=== PATIENT | female | born 1955 | race Caucasian/White ===

== ENCOUNTER 2021-11-30 12:41 | Inpatient (IN) | payer OTHER, SELFPAY ==
[2021-11-30] VITALS (8 sets, daily range): BP systolic 122–142; BP diastolic 48–59; PULSE 89–115; RESP 13–18; TEMP 38.3; O2SAT 94–99; BMI 19.8
--- NOTE | ~2021-11-30 | XR_ITS ---
EXAMINATION: XR CHEST CLINICAL INFORMATION: SOB COMPARISON: None TECHNIQUE: 2 views of the chest were obtained. FINDINGS: The lungs are expanded with right upper lobe patchy consolidation consistent infiltrate. Rest lungs are clear. The heart size and pulmonary vascularity is normal. No gross bony abnormality. XR/XR chest 2V IMPRESSION: Right upper lobe pneumonia.
--- NOTE | ~2021-11-30 | US_ITS ---
EXAMINATION: US ABDOMEN COMPLETE CLINICAL INFORMATION: Elevated LFTs. COMPARISON: None TECHNIQUE: Real-time imaging of the abdominal viscera. FINDINGS: PANCREAS: Pancreatic tail is obscured by bowel gas. Remainder of the pancreas is grossly unremarkable. ABDOMINAL AORTA: Normal caliber. Atherosclerotic irregularity of the distal abdominal aorta. INFERIOR VENA CAVA: Visualized portions are normal. LIVER: Normal homogeneous hepatic echotexture. No hypertrophy of the caudate lobe. Smooth liver surface capsular contour. Small 0.7 cm anechoic cyst in the right liver lobe. No other liver lesions. Minimal prominence of a few intrahepatic bile ducts. GALLBLADDER: Gallbladder appears incompletely distended/partially contracted with thickened wall. No sludge or shadowing gallstones. No pericholecystic fluid. The patient did not have a sonographic Wilde sign. COMMON BILE DUCT: Normal in caliber measuring 0.6 cm in diameter. RIGHT KIDNEY: Normal. No hydronephrosis. No renal calculi or focal parenchymal lesions. The kidney measures 10.2 cm in maximum dimension. LEFT KIDNEY: Normal. No hydronephrosis. No renal calculi or focal parenchymal lesions. The kidney measures 10.6 cm in maximum dimension. SPLEEN: Normal. The spleen measures 11.1 cm in maximum dimension. FREE FLUID: None. US/US abdomen complete IMPRESSION: 1. Normal hepatic echotexture. No evidence of steatosis or morphologic features of advanced cirrhosis. 2. No suspicious liver lesions. 3. No significant biliary ductal dilation. 4. Unremarkable appearance of the pancreas, spleen, and both kidneys. 5. Contracted/incompletely distended thick-walled gallbladder. No evidence of cholelithiasis or specific sonographic findings of acute cholecystitis.
--- NOTE | 2021-11-30 13:46 | PC.NURSE ---
PATIENT'S [id number] RINA [phone] ([facility])
[2021-11-30 14:29] LABS: MANUAL DIFF FLAG NO
[2021-11-30 14:30] LABS: Basophils Absolute Auto 0.1 X10*3/uL (0.0-0.2); Basophils Percent Auto 0.5 % (0-2); Eosinophils Percent Auto 0.1 % (0-4); Hematocrit 38.1 % (37.0-47.0); Hemoglobin 13.7 g/dl (12.0-16.0); Imm Gran Abs Auto 0.21 X10*3/uL (0.00-0.03); Imm Gran Pct Auto 1.6 % (0.0-0.4); Lymphocytes Absolute Auto 0.8 X10*3/uL (1.2-4.9); Lymphocytes Percent Auto 6.2 % (20-40); Mean Corpuscular Hemoglobin 34.1 pg (27.0-33.0); Mean Corpuscular Volume 94.8 fL (80.0-98.0); Mean Platelet Volume 9.5 fL (9.4-12.3); Monocytes Absolute Auto 1.3 X10*3/uL (0.1-1.2); Monocytes Percent Auto 9.8 % (2-11); Neutrophils Absolute Auto 10.7 x10*3/uL (2.0-8.3); Neutrophils Percent Auto 81.8 % (45-73); Platelet Count 168 X10*3/uL (160-400); Red Blood Count 4.02 X10*6/uL (4.20-5.50); Red Cell Distribution Width 11.2 % (11.0-16.0)
[2021-11-30 15:00] LABS: Alanine Aminotransferase 39 U/L (0-31); Albumin Level 3.7 g/dL (3.5-5.0); Alkaline Phosphatase 121 U/L (39-117); Anion Gap 19 (12-20); Aspartate Amino Transferase 62 U/L (5-31); Bilirubin Total 2.1 mg/dL (0.0-1.0); Blood Urea Nitrogen 10 mg/dL (9-16); Calcium 9.2 mg/dL (8.4-10.2); Carbon Dioxide 27 mmol/L (22-29); Chloride 90 mmol/L (96-108); Creatinine Clr Calc Pharmacy 68.2; Estimated Glomerular Filt Rate > 60; Glucose Random 123 mg/dL (60-115); Potassium 3.3 mmol/L (3.3-5.1); Sodium 133 mmol/L (135-145); Total Protein 6.5 g/dL (6.5-8.0)
[2021-11-30 15:12] LABS: Influenza A PCR NEGATIVE (Negative); Influenza B PCR NEGATIVE (Negative); Resp Syncy Virus RNA Qual PCR NEGATIVE (Negative); SARS COV2 PCR INHOUSE NEGATIVE (Negative)
--- NOTE | 2021-11-30 17:20 | PC.NURSE ---
update to Dona onphone.
--- NOTE | 2021-11-30 17:58 | ECG_ITS ---
Test Reason : sob Blood Pressure : / mmHG Vent. Rate : 115 BPM Atrial Rate : 115 BPM P-R Int : 156 ms QRS Dur : 088 ms QT Int : 330 ms P-R-T Axes : 080 065 066 degrees QTc Int : 456 ms Sinus tachycardia Otherwise normal ECG No previous ECGs available Referred By: Jane Simms Electronically Signed By:ROSELINE ROBERTS
--- NOTE | 2021-11-30 18:02 | ED_ITS ---
HPI - General Adult General Chief complaint: General Medical Stated complaint: sob headache trembling sleeping Time Seen by Provider: 11/30/21 17:41 Source: patient Mode of arrival: ambulatory Limitations: no limitations History of Present Illness HPI narrative: 65-year-old female with a history of tobacco use presents with several days of body aches, headache, shortness of breath a nonproductive cough with tactile temps at home. Patient also had some nausea vomiting and diarrhea in the last week. +chest discomfort with coughing. no leg swelling or leg pain. Related Data Home Medications Medication Instructions Recorded Confirmed albuterol sulfate 90 mcg/actuation 2 puff inhalation Q4H PRN dyspnea 11/30/21 11/30/21 aerosol inhaler fluticasone propionate 50 1 spray intranasal BID allergies 11/30/21 11/30/21 mcg/actuation nasal spray,suspension Allergies Allergy/AdvReac Type Severity Reaction Status Date / Time Penicillins [PCN] Allergy Severe ANAPHYLAXIS Verified 11/30/21 13:37 penicillin V Allergy Unknown anaphylaxis Verified 11/30/21 13:37 Review of Systems Review of Systems: Yes all other systems are reviewed and are negative Constitutional: Constitutional: Reports no additional constitutional complaints, Reports body ache(s), Denies chills, Reports fever(s), Reports headache(s) and Denies weakness Eyes: Eyes: Reports no additional eye complaints and Denies change in vision ENT: Reports system reviewed and no additional complaints, except as documented, Denies dizziness, Reports headache(s), Denies nasal congestion, Denies nasal discharge and Denies neck pain Cardiovascular: Cardiovascular: Reports no additional cardiovascular complaints, Denies chest pain, Denies leg edema and Reports dyspnea Respiratory: Respiratory: Reports no additional respiratory complaints, Reports cough and Reports dyspnea Gastrointestinal: Gastrointestinal: Reports no additional gastrointestinal complaints, Denies abdominal pain, Reports diarrhea, Reports nausea and Reports vomiting Genitourinary: Genitourinary: Reports no additional female genitourinary complaints and Denies urinary incontinence Musculoskeletal: Musculoskeletal: Reports no additional musculoskeletal complaints, Denies back pain, Denies arthralgias, Denies joint swelling, Denies neck pain, Denies numbness and Denies tingling Integumentary/Breasts: Skin/Breast: Reports system reviewed and no additional complaints, except as docu and Denies rash Neurologic: Reports system reviewed and no additional complaints, except as documented, Denies dizziness, Reports headache(s), Denies numbness, Denies tingling and Denies weakness [facility] Past Medical History Attestation statement: The following information was validated with the patient. Source: old records reviewed and nursing notes reviewed Social History Social History Advance Directives: No Advance Directives Information Provided: No Physical Exam ED Vital Signs: Vital Signs - 24 hr 11/30/21 13:38 Temperature 100.9 F H Pulse Rate 115 H Respiratory Rate 18 Blood Pressure 142/57 H Pulse Oximetry 96 Oxygen Delivery Method Room Air BMI result Body Mass Index 19.8 Const General: alert Orientation/consciousness: patient oriented x3 Limitations: no limitations HENMT Head: Yes normal to inspection Ears: hearing grossly normal bilaterally Eyes General: appearance normal, both eyes and all related structures Pupils: Equal, round and reactive pupils present Neck Neck: Yes normal visual inspection, Yes full ROM, Yes no lymphadenopathy and Yes no meningeal signs Chest Chest palpation & inspection: normal inspection of the chest Resp Other: Mild tachypnea with speaking and exertion right lung is coarse with wheezing Cardio Rate: regular rate Rhythm: regular rhythm Peripheral pulses: Peripheral pulses 2+ throughout GI Inspection: Yes normal to inspection Palpation (GI): Soft to palpation and nontender Back/Spine/Pelvis Thoracic/Lumbar Spine: thoracic and lumbar spine normal to inspection Skin General skin exam: no rashes or lesions noted Neuro General: patient oriented x3, moves all extremities and no meningeal signs Cranial nerves: Yes Equal, round and reactive pupils present Extrem General: Yes normal to inspection, Yes no pedal edema and Yes no calf tenderness Course Course Course Narrative: 1830-eviewed labs which show leukocytosis. Chest x-ray is consistent with a right upper lobe pneumonia. Patient has mildly elevated LFTs. She has no abdominal pain. She does have some history in the last week of some vomiting and diarrhea. Think this likely is secondary to her infection and not from acute abdominal pathology. Patient will require admission due to meeting SIRS criteria with an infection. I did discuss the case with Dr. Fontenot who accepted admission Reevaluation(s) Reevaluation #1: 1845-Patient drinks 3-4 nips daily. ?contributing cause of elevated lfts. Medical Decision Making [facility] Narrative Medical decision making narrative: [id number]-old female with history of tobacco use presents with flu-like symptoms for the last few days. On my exam patient is tachycardic, tachypneic and febrile. chest x-ray consistent with right upper lobe pneumonia. at this time infection is suspected. blood cultures and lactic acid ordered. antibiotics ordered. Medical Records Medical records reviewed: Yes I reviewed the patient's medical records. Lab Data Lab results reviewed: Yes I reviewed the patient's lab results. Result diagrams: 11/30/21 14:24 11/30/21 14:24 Labs: Lab Results 11/30/21 11/30/21 11/30/21 Range/Units 14:08 14:24 14:24 WBC 13.0 H (4.8-10.8) X10*3/uL RBC 4.02 L (4.20-5.50) X10*6/uL Hgb 13.7 (12.0-16.0) g/dl Hct 38.1 (37.0-47.0) % MCV 94.8 (80.0-98.0) fL MCH 34.1 H (27.0-33.0) pg MCHC 36.0 H (31.0-35.0) g/dl RDW 11.2 (11.0-16.0) % Plt Count 168 (160-400) X10*3/uL MPV 9.5 (9.4-12.3) fL Immature Gran % (Auto) 1.6 H (0.0-0.4) % Neut % (Auto) 81.8 H (45-73) % Lymph % (Auto) 6.2 L (20-40) % [place] % (Auto) 9.8 (2-11) % Eos % (Auto) 0.1 (0-4) % Baso % (Auto) 0.5 (0-2) % Lymph # (Auto) 0.8 L (1.2-4.9) X10*3/uL [place] # (Auto) 1.3 H (0.1-1.2) X10*3/uL Eos # (Auto) 0.0 (0.0-0.4) X10*3/uL Baso # (Auto) 0.1 (0.0-0.2) X10*3/uL Abs Immat Gran (auto) 0.21 H (0.00-0.03) X10*3/uL Absolute Neuts (auto) 10.7 H (2.0-8.3) x10*3/uL Absolute Nucleated RBC 0.000 (0.0-0.012) X10*3/uL Nucleated RBC % (auto) 0.0 (0.0-0.2) /100WBC Sodium 133 L (135-145) mmol/L Potassium 3.3 (3.3-5.1) mmol/L Chloride 90 L (96-108) mmol/L Carbon Dioxide 27 (22-29) mmol/L Anion Gap 19 (12-20) BUN 10 (9-16) mg/dL Creatinine 0.61 (0.5-1.4) mg/dL Estim Creat Clear Calc 68.2 Estimated GFR > 60 Random Glucose 123 H (60-115) mg/dL Lactic Acid (0.5-2.0) mmol/L Calcium 9.2 (8.4-10.2) mg/dL Total Bilirubin 2.1 H (0.0-1.0) mg/dL AST 62 H (5-31) U/L ALT 39 H (0-31) U/L Alkaline Phosphatase 121 H (39-117) U/L Total Protein 6.5 (6.5-8.0) g/dL Albumin 3.7 (3.5-5.0) g/dL Influenza Type A (PCR) NEGATIVE (Negative) Influenza Type B (PCR) NEGATIVE (Negative) RSV RNA Qual (PCR) NEGATIVE (Negative) SARS-CoV-2 RNA (RT-PCR) NEGATIVE (Negative) 11/30/21 Range/Units 18:20 WBC (4.8-10.8) X10*3/uL RBC (4.20-5.50) X10*6/uL Hgb (12.0-16.0) g/dl Hct (37.0-47.0) % MCV (80.0-98.0) fL MCH (27.0-33.0) pg MCHC (31.0-35.0) g/dl RDW (11.0-16.0) % Plt Count (160-400) X10*3/uL MPV (9.4-12.3) fL Immature Gran % (Auto) (0.0-0.4) % Neut % (Auto) (45-73) % Lymph % (Auto) (20-40) % [place] % (Auto) (2-11) % Eos % (Auto) (0-4) % Baso % (Auto) (0-2) % Lymph # (Auto) (1.2-4.9) X10*3/uL [place] # (Auto) (0.1-1.2) X10*3/uL Eos # (Auto) (0.0-0.4) X10*3/uL Baso # (Auto) (0.0-0.2) X10*3/uL Abs Immat Gran (auto) (0.00-0.03) X10*3/uL Absolute Neuts (auto) (2.0-8.3) x10*3/uL Absolute Nucleated RBC (0.0-0.012) X10*3/uL Nucleated RBC % (auto) (0.0-0.2) /100WBC Sodium (135-145) mmol/L Potassium (3.3-5.1) mmol/L Chloride (96-108) mmol/L Carbon Dioxide (22-29) mmol/L Anion Gap (12-20) BUN (9-16) mg/dL Creatinine (0.5-1.4) mg/dL Estim Creat Clear Calc Estimated GFR Random Glucose (60-115) mg/dL Lactic Acid 1.4 (0.5-2.0) mmol/L Calcium (8.4-10.2) mg/dL Total Bilirubin (0.0-1.0) mg/dL AST (5-31) U/L ALT (0-31) U/L Alkaline Phosphatase (39-117) U/L Total Protein (6.5-8.0) g/dL Albumin (3.5-5.0) g/dL Influenza Type A (PCR) (Negative) Influenza Type B (PCR) (Negative) RSV RNA Qual (PCR) (Negative) SARS-CoV-2 RNA (RT-PCR) (Negative) Discharge Plan Discharge Clinical Impression: Pneumonia, Leukocytosis, Elevated liver enzymes Patient Disposition: Admitted As Inpatient
[2021-11-30 18:36] LABS: Lactic Acid 1.4 mmol/L (0.5-2.0)
[2021-11-30] MEDS: Albuterol/Iprat 2.5/0.5MG 3 ML AMPUL.NEB INHALE ×2 (18:46→20:36)
--- NOTE | 2021-11-30 18:50 | P.HPHOSP_ITS ---
History of Present Illness Date of Service: 11/30/21 Attending physician on admission: Hortensia Fontenot Chief Complaint: sepsis and pneumonia 65-year-old female with history of smoking and alcohol use comes to emergency room because of 1 week?body aches, headache, shortness of breath a nonproductive cough with tactile temps at home.? Patient also had some nausea vomiting and diarrhea in the last week.? She said her nausea vomiting and diarrhea is improved but she is having coughing and pain with coughing. She seems generalized weak, felt fever at home and also had chills. Also her appetite is decreased. She denies any recent travel or any sick contacts. Past medical history: She says that she had question of possible lupus 10 years ago but does not take any medication for lupus and does not follow any specialist for that. Currently does not say any symptoms or rash. Possible undiagnosed COPD. Social history: Lives with her son, uses half pack of cigarettes every day from last 30-40 years, drinks every day 3-4 nips of fireball. Patient denies any family history of any medical problems . Lab imaging reviewed: Patient had WBC count of 13, tachycardia, elevated LFTs Chest x-ray shows Right upper lobe pneumonia. Review of Systems Review of Systems: As above. Yes all other systems are reviewed and are negative PMFSH Pertinent family history: Denies any family history of any medical problem including heart disease or hypertension or diabetes . Social History Advance Directives: No Advance Directives Information Provided: No Meds Allergies Allergy/AdvReac Type Severity Reaction Status Date / Time Penicillins [PCN] Allergy Severe ANAPHYLAXIS Verified 11/30/21 13:37 penicillin V Allergy Unknown anaphylaxis Verified 11/30/21 13:37 Active Medications: Current Medications Albuterol/Ipratropium (Albuterol/Iprat 2.5/0.5mg 3 Ml Ampul.Neb) 3 ml INHALE RQ4H WHILE AWAKE LAINA Enoxaparin Sodium (Enoxaparin Sodium 40 Mg/0.4 Ml Syringe) 40 mg SUBCUT Q24H LAINA Levofloxacin (Levaquin) 750 mg in 150 mls @ 100 mls/hr IV ONCE ONE Stop: 11/30/21 19:28 Lactated Ringer's (Lr) 1,000 mls @ 100 mls/hr IVCONT .Q10H [facility] Levofloxacin (Levaquin) 750 mg in 150 mls @ 100 mls/hr IV Q24H [facility] Methylprednisolone Sodium Succinate (Methylprednisolone Sod Succ 40 Mg/Ml Vial) 40 mg IVPUSH BID [facility] Pharmacy Consult (Consult Rx Perform Med Rec) 1 each MISCELLANE ONCE PRN PRN Reason: Consult order Sodium Chloride (0.9 % Sodium Chloride Flush 3 Ml Syringe) 3 ml IVFLUSH QSHIFT [facility] Physical Exam Vital Signs and Narrative: Vital Signs: Last Vital Signs Temp 100.9 F H 11/30/21 13:38 Pulse 115 H 11/30/21 13:38 Resp 18 11/30/21 13:38 BP 142/57 H 11/30/21 13:38 Pulse Ox 96 11/30/21 13:38 O2 Del Method 11/30/21 13:38 BMI result Body Mass Index 19.8 Appearance: Alert.? Oriented X3.? Eyes: Pupils equal, round and reactive to light.? Sclera nonicteric.? ENT: Pharynx normal.? Moist mucous membranes. cvs: rrr(tachy), [id number] res: diminshed air entry right upper lobe , has wheezing b/l. abd: no rebound or guarding ,nt, bs present. ext pulses present , no cyanosis ,Gait well balanced well coordinated. neuro: axo3 , nonfocal. Results Labs CBC and Chem 7: 11/30/21 14:24 11/30/21 14:24 Labs: Laboratory Results - last 24 hr 11/30/21 11/30/21 11/30/21 14:08 14:24 14:24 MCV 94.8 MCH 34.1 H MCHC 36.0 H RDW 11.2 Plt Count 168 MPV 9.5 Immature Gran % (Auto) 1.6 H Neut % (Auto) 81.8 H Lymph % (Auto) 6.2 L [place] % (Auto) 9.8 Eos % (Auto) 0.1 Baso % (Auto) 0.5 Lymph # (Auto) 0.8 L [place] # (Auto) 1.3 H Eos # (Auto) 0.0 Baso # (Auto) 0.1 Abs Immat Gran (auto) 0.21 H Absolute Neuts (auto) 10.7 H Absolute Nucleated RBC 0.000 Nucleated RBC % (auto) 0.0 Anion Gap 19 Estim Creat Clear Calc 68.2 Estimated GFR > 60 Random Glucose 123 H Lactic Acid Calcium 9.2 Total Bilirubin 2.1 H AST 62 H ALT 39 H Alkaline Phosphatase 121 H Total Protein 6.5 Albumin 3.7 Influenza Type A (PCR) NEGATIVE Influenza Type B (PCR) NEGATIVE RSV RNA Qual (PCR) NEGATIVE SARS-CoV-2 RNA (RT-PCR) NEGATIVE 11/30/21 18:20 MCV MCH MCHC RDW Plt Count MPV Immature Gran % (Auto) Neut % (Auto) Lymph % (Auto) [place] % (Auto) Eos % (Auto) Baso % (Auto) Lymph # (Auto) [place] # (Auto) Eos # (Auto) Baso # (Auto) Abs Immat Gran (auto) Absolute Neuts (auto) Absolute Nucleated RBC Nucleated RBC % (auto) Anion Gap Estim Creat Clear Calc Estimated GFR Random Glucose Lactic Acid 1.4 Calcium Total Bilirubin AST ALT Alkaline Phosphatase Total Protein Albumin Influenza Type A (PCR) Influenza Type B (PCR) RSV RNA Qual (PCR) SARS-CoV-2 RNA (RT-PCR) Imaging Radiologist's Impressions: Impressions Chest X-Ray 11/30/21 13:55 IMPRESSION: Right upper lobe pneumonia. Assessment and Plan (1) Sepsis: Status: Acute (2) Pneumonia: Status: Acute (3) Leukocytosis: Status: Acute (4) Elevated liver enzymes: Status: Acute Plan 65-year-old female with history of smoking and alcohol- patient getting admitted for sepsis/pneumonia. 1. Sepsis secondary to pneumonia Has leukocytosis, fever, tachycardia Blood cultures ordered Lactic acid normal Urine strep and Legionella antigen started on levaquin 2. Possible COPD undiagnosed-exacerbation. Continue nebs, steroids, antibiotic. 3. alcohol use: Encouraged strongly to abstain alcohol. Continue thiamine, folic acid, CIWA scale. 4. Elevated LFTs: Possible related to alcohol use, added hepatitis profile and abdominal ultrasound for workup. 5.: Current smoker:Encouraged strongly to abstain smoking. Added nicotine patch. DVT prophylaxis subcu Lovenox. Even though patient says she does not take any medication, medical reconciliation still pending. Above management discussed with the patient and a her daughter at the bedside in detail length the bone understand and in agreement with the above plan, time spent 70 minute, patient is full code. Considering sepsis and pneumonia and as well as COPD exacerbation possible- patient will benefit 2 midnight stays Quality Stroke Does the patient have a stroke diagnosis?: No VTE Prior VTE?: No VTE Risk Level:: Medical - moderate - high VTE Device Contraindication: N/A - Device Ordered VTE Drug Contraindication: N/A - Med Ordered
--- NOTE | 2021-11-30 20:03 | PHA.MEDREC ---
med rec complete, no issues Pharmacy Consult ? Medication Reconciliation Pharmacy has completed the medication reconciliation.
[2021-11-30] MEDS: methylPREDNISolone Sod Succ 125 MG/2 ML VIAL IVPUSH (20:05)
[2021-11-30] MEDS: levoFLOXacin/D5W 750 MG/150 ML PIGGYBACK 100 MG IV (20:05)
[2021-11-30] MEDS: Enoxaparin Sodium 40 MG/0.4 ML SYRINGE SUBCUT (20:05)
[2021-11-30] MEDS: Thiamine HCL 100 MG TABLET PO (20:06)
[2021-11-30] MEDS: Folic Acid 1 MG TABLET PO (20:06)
[2021-11-30] MEDS: PHENobarbitaL sodium 130 MG/ML IM ONCE 153 MG IM (20:06)
--- NOTE | 2021-11-30 21:18 | PC.NURSE ---
IV to RAC infusing levaquin infiltrated, pt has a localized reaction, redness swelling. denies SOB, no rash noted. IV d/c's levaquin paused until another IV is established. Dtr at bedside. pt has no complaints other than a headache. MD notified about infiltrate
[2021-11-30] MEDS: Lactated Ringers 1,000 ML 100 ML IVCONT (22:32)
[2021-11-30] MEDS: oxyCODONE HCl Immed Release 5 MG TABLET PO (22:34)
--- NOTE | 2021-11-30 22:53 | MHC.CM.PN ---
IMM 11/30. Met with kathy woman who lives with her son and helps to care for her grandchildren. Lived in [place] and continues to see provider at [facility]. HCP reviewed, completed and signed. Copies given. Uploaded into [facility] [employer] and [facility] [employer]. HCP/daughter Jaye Aparicio ([phone]). Pt does drink 3-4 nips daily. D/C plan is home without services. Family will provide transportation home. CM to follow for d/c teaching.
[2021-11-30] MEDS: PHENobarbitaL sodium 130 MG/ML VIAL IM Q3Hx2 115 MG IM (23:40)
[2021-12-01] VITALS (12 sets, daily range): BP systolic 103–128; BP diastolic 52–66; PULSE 69–96; RESP 11–18; TEMP 36.4–36.7; O2SAT 95–100
--- NOTE | 2021-12-01 01:05 | PC.NURSE ---
pt reports good effect from oxycodone, no longer c/o headache
--- NOTE | 2021-12-01 02:10 | PC.NURSE ---
Pts Daughter In Law: Dona
--- NOTE | 2021-12-01 02:40 | PC.NURSE ---
pt ambulated to BR with standby assist to void. no reported dizziness or pain
[2021-12-01] MEDS: PHENobarbitaL sodium 130 MG/ML VIAL IM Q3Hx2 115 MG IM (02:51)
[2021-12-01 03:13] LABS: Appearance Urine HAZY; Color Urine DK YELLOW; Glucose Urine UA NEG (NEG); Leukocyte Esterase Urine NEG (NEG); Nitrite Urine NEG (NEG); UACC Culture Trigger NO; Urine Blood NEG (NEG); Urine Ketones 15 MG/DL (NEG); Urine Protein 1+ MG/DL (NEG-TRACE)
[2021-12-01 03:22] LABS: Bacteria Urine 1+ /LPF; Calcium Phosphate Crystals Ur 2+ /LPF; RBC Urine 0 /HPF (0); Squamous Epithelial Cell Urine 2+ /LPF
[2021-12-01 04:25] LABS: Hematocrit 31.9 % (37.0-47.0); Hemoglobin 11.5 g/dl (12.0-16.0); Mean Corpuscular HGB Conc 36.1 g/dl (31.0-35.0); Mean Corpuscular Hemoglobin 33.9 pg (27.0-33.0); Mean Corpuscular Volume 94.1 fL (80.0-98.0); Mean Platelet Volume 9.5 fL (9.4-12.3); Platelet Count 165 X10*3/uL (160-400); Red Blood Count 3.39 X10*6/uL (4.20-5.50); Red Cell Distribution Width 11.3 % (11.0-16.0)
[2021-12-01 04:45] LABS: Anion Gap 17 (12-20); Blood Urea Nitrogen 12 mg/dL (9-16); Calcium 8.4 mg/dL (8.4-10.2); Carbon Dioxide 26 mmol/L (22-29); Chloride 92 mmol/L (96-108); Creatinine Clr Calc Pharmacy 71.7; Estimated Glomerular Filt Rate > 60; Glucose Random 211 mg/dL (60-115); Potassium 2.9 mmol/L (3.3-5.1); Sodium 132 mmol/L (135-145)
[2021-12-01 07:59] LABS: HBS Num1 9.96 mIU/mL (0-7.99); HBc Num1 7.62 S/CO (0.00-0.79); HBsAGNum1 0.18 S/CO (0.00-0.99); Hepatitis B Surface Antigen Negative (Negative); ~HepC Num1 9.33 S/CO (0.00-0.79); ~Hepatitis C Antibody Reactive (Nonreactive)
[2021-12-01] MEDS: methylPREDNISolone Sod Succ 40 MG/ML VIAL IVPUSH ×2 (08:14→20:28)
[2021-12-01] MEDS: Multivitamin TABLET 1 TAB PO (08:15)
[2021-12-01] MEDS: Folic Acid 1 MG TABLET PO (08:15)
[2021-12-01] MEDS: Thiamine HCL 100 MG TABLET PO (08:15)
[2021-12-01] MEDS: PHENobarbitaL 30 MG TABLET PO ×2 (08:15→20:28)
[2021-12-01] MEDS: Lactated Ringers 1,000 ML 100 ML IVCONT (08:17)
[2021-12-01] MEDS: Nicotine 21 MG PATCH.TD24 TRANSDERMA (08:17)
--- NOTE | 2021-12-01 08:23 | PC.NURSE ---
Pt ate breakfast, is oriented to person/place. Difficulty tracking details of plan of care. Skin pwd, unlabored resp. nsr on monitor. awaits placement on floor. no distress at this time.
[2021-12-01 08:51] LABS: HBS Num2 9.07 mIU/mL (0-7.99); HBS Num3 9.39 mIU/mL (0-7.99); HBc Num2 7.63 S/CO; HBc Num3 7.79 S/CO; Hepatitis B Core Antibody Reactive (Nonreactive); ~Hepatitis B Surface Antibody GRAYZONE (Nonreactive)
--- NOTE | 2021-12-01 09:25 | P.CDIC_ITS ---
CDI Concurrent Query Documentation Clarification: PHYSICIAN'S DOCUMENTATION REQUEST Date of Query: 12/01/21 0925 Patient Name: Marjan Vasquez Admit Date: 11/30/21 Dear Doctor, A review of the medical record indicates additional documentation may be needed. Please review below and update the documentation accordingly. Clinical Indicators: Risk Factors/Clinical Indicators/Treatments Labs: 12/01 - potassium 2.9 L Based on the above, could you clarify in the Progress Notes the appropriate diagnosis, if significant, that supports the above abnormalities and additional evaluation, monitoring, and/or treatment rendered: * Hypokalemia or other etiology of lab findings * Labs indicate a diagnosis of (please specify) * Other (please specify) * Unable to determine Use of terms such as suspected, likely, concern for, or probable (associated with a specific diagnosis that is being evaluated, monitored, or treated as if it exists) are acceptable and can be coded in the inpatient setting, when documented at the time of discharge. Thank you, Jordana Benson [facility], CDIS Extension: [phone] Please use your independent medical judgment in providing your response. THIS QUERY IS PART OF THE PERMANENT MEDICAL RECORD Provider Response: Other Other Diagnosis: Hypokalemia.
[2021-12-01] MEDS: Albuterol/Iprat 2.5/0.5MG 3 ML AMPUL.NEB INHALE ×3 (10:06→21:04)
--- NOTE | 2021-12-01 12:36 | PC.NURSE ---
Pt reports increasing fatigue and lower back pain. Is able to get to bathroom with minimal assist. no UTI sx. LR running, this rn to ask about switch to NS d/t lower sodium.
[2021-12-01] MEDS: guaiFENesin 100 MG/5 ML LIQUID PO ×2 (12:50→15:45)
[2021-12-01] MEDS: Potassium Chloride Packet 20 MEQ PACKET 40 MEQ PO (12:57)
[2021-12-01] MEDS: Ketorolac Tromethamine 15 MG/ML VIAL IVPUSH (12:57)
[2021-12-01 13:21] LABS: Alanine Aminotransferase 30 U/L (0-31); Albumin Level 3.2 g/dL (3.5-5.0); Alkaline Phosphatase 98 U/L (39-117); Aspartate Amino Transferase 30 U/L (5-31); Bilirubin Direct 0.8 mg/dL (0.0-0.5); Bilirubin Total 1.1 mg/dL (0.0-1.0); Magnesium 1.1 mg/dL (1.6-2.6); Total Protein 5.3 g/dL (6.5-8.0)
--- NOTE | 2021-12-01 14:29 | P.PNIM_ITS ---
Subjective Subjective Date of Service: 12/01/21 Interval History: Still has body aches, feels generalized weak. Has cough and phlegm. Electrolytic abnormalities. Review of Systems Denies any chest pain or abdominal pain or nausea or vomiting or diarrhea. Physical Exam Vital Signs: Vital Signs: Last Vital Signs Temp 97.8 F 12/01/21 12:57 Pulse 88 12/01/21 12:47 Resp 11 L 12/01/21 12:47 BP 116/62 12/01/21 12:47 Pulse Ox 98 12/01/21 12:47 O2 Del Method 12/01/21 12:47 BMI result Body Mass Index 19.8 Appearance: Alert.? Oriented X3.? cvs: [id number], [id number] res: diminshed air entry right upper lobe , has wheezing b/l. abd: no rebound or guarding ,nt, bs present. ext pulses present , no cyanosis. neuro: axo3 , nonfocal. Objective Data Active Medications Albuterol/Ipratropium (Albuterol/Iprat 2.5/0.5mg 3 Ml Ampul.Neb) 3 ml INHALE RQ4H WHILE AWAKE [facility] Last Admin: 12/01/21 10:06 Dose: 3 ml Documented By: EDDIE Enoxaparin Sodium (Enoxaparin Sodium 40 Mg/0.4 Ml Syringe) 40 mg SUBCUT Q24H [facility] Last Admin: 11/30/21 20:05 Dose: 40 mg Documented By: FERN Folic Acid (Folic Acid 1 Mg Tablet) 1 mg PO DAILY [facility] Last Admin: 12/01/21 08:15 Dose: 1 mg Documented By: PRICE Guaifenesin (Guaifenesin 100 Mg/5 Ml Liquid) 5 ml PO Q6H [facility] Last Admin: 12/01/21 12:50 Dose: 5 ml Documented By: PRICE Levofloxacin (Levaquin) 750 mg in 150 mls @ 100 mls/hr IV Q24H [facility] Methylprednisolone Sodium Succinate (Methylprednisolone Sod Succ 40 Mg/Ml Vial) 40 mg IVPUSH BID [facility] Last Admin: 12/01/21 08:14 Dose: 40 mg Documented By: PRICE Multivitamins/Vitamin C (Multivitamin Tablet) 1 tab PO DAILY [facility] Last Admin: 12/01/21 08:15 Dose: 1 tab Documented By: PRICE Nicotine (Nicotine 21 Mg Patch.Td24) 21 mg TRANSDERMA DAILY [facility] Last Admin: 12/01/21 08:17 Dose: 21 mg Documented By: PRICE Oxycodone HCl (Oxycodone Hcl Immed Release 5 Mg Tablet) 5 mg PO Q6H PRN PRN Reason: Pain, Mild (Pain Scale 1-3) Pharmacy Consult (Consult Rx Perform Med Rec) 1 each MISCELLANE ONCE PRN PRN Reason: Consult order Pharmacy Consult (Consult Rx Etoh Phenob Im/Po) 1 each MISCELLANE ONCE PRN; Protocol PRN Reason: Consult order Phenobarbital (Phenobarbital 30 Mg Tablet) 30 mg PO BID [facility] Stop: 12/02/21 21:01 Last Admin: 12/01/21 08:15 Dose: 30 mg Documented By: PRICE Phenobarbital (Phenobarbital 15 Mg Tablet) 15 mg PO BID [facility] Stop: 12/04/21 21:01 Phenobarbital (Phenobarbital 15 Mg Tablet) 15 mg PO DAILY [facility] Stop: 12/06/21 09:01 Sodium Chloride (0.9 % Sodium Chloride Flush 3 Ml Syringe) 3 ml IVFLUSH QSHIFT [facility] Last Admin: 12/01/21 08:17 Dose: Not Given Documented By: PRICE Non-Admin Reason: Med Not Available Thiamine HCl (Thiamine Hcl 100 Mg Tablet) 100 mg PO DAILY [facility] Last Admin: 12/01/21 08:15 Dose: 100 mg Documented By: PRICE Labs CBC & Chem 7: 12/01/21 03:48 12/01/21 03:48 Labs: Laboratory Results - last 24 hr 11/30/21 11/30/21 11/30/21 14:08 14:08 14:24 MCV 94.8 MCH 34.1 H MCHC 36.0 H RDW 11.2 Plt Count 168 MPV 9.5 Immature Gran % (Auto) 1.6 H Neut % (Auto) 81.8 H Lymph % (Auto) 6.2 L Love % (Auto) 9.8 Eos % (Auto) 0.1 Baso % (Auto) 0.5 Lymph # (Auto) 0.8 L Love # (Auto) 1.3 H Eos # (Auto) 0.0 Baso # (Auto) 0.1 Abs Immat Gran (auto) 0.21 H Absolute Neuts (auto) 10.7 H Absolute Nucleated RBC 0.000 Nucleated RBC % (auto) 0.0 Anion Gap Estim Creat Clear Calc Estimated GFR Random Glucose Lactic Acid Calcium Magnesium Total Bilirubin Direct Bilirubin AST ALT Alkaline Phosphatase Total Protein Albumin Urine Color Urine Appearance Urine pH Ur Specific [place] Urine Protein Urine Glucose (UA) Urine Ketones Urine Blood Urine Nitrite Ur Leukocyte Esterase Urine RBC Urine WBC Ur Squamous Epith Cells Calcium Phosphate Cryst Urine Bacteria Hep Bs Antigen Negative Hep Bs Antibody GRAYZONE Hep B Core Total Ab Reactive Hepatitis C Ab (EIA) Reactive H Influenza Type A (PCR) NEGATIVE Influenza Type B (PCR) NEGATIVE RSV RNA Qual (PCR) NEGATIVE SARS-CoV-2 RNA (RT-PCR) NEGATIVE 11/30/21 11/30/21 12/01/21 14:24 18:20 01:59 MCV MCH MCHC RDW Plt Count MPV Immature Gran % (Auto) Neut % (Auto) Lymph % (Auto) Love % (Auto) Eos % (Auto) Baso % (Auto) Lymph # (Auto) Love # (Auto) Eos # (Auto) Baso # (Auto) Abs Immat Gran (auto) Absolute Neuts (auto) Absolute Nucleated RBC Nucleated RBC % (auto) Anion Gap 19 Estim Creat Clear Calc 68.2 Estimated GFR > 60 Random Glucose 123 H Lactic Acid 1.4 Calcium 9.2 Magnesium Total Bilirubin 2.1 H Direct Bilirubin AST 62 H ALT 39 H Alkaline Phosphatase 121 H Total Protein 6.5 Albumin 3.7 Urine Color DK YELLOW Urine Appearance HAZY Urine pH 6.0 Ur Specific [place] 1.020 Urine Protein 1+ H Urine Glucose (UA) NEG Urine Ketones 15 Urine Blood NEG Urine Nitrite NEG Ur Leukocyte Esterase NEG Urine RBC 0 Urine WBC 1-4 Ur Squamous Epith Cells 2+ Calcium Phosphate Cryst 2+ Urine Bacteria 1+ Hep Bs Antigen Hep Bs Antibody Hep B Core Total Ab Hepatitis C Ab (EIA) Influenza Type A (PCR) Influenza Type B (PCR) RSV RNA Qual (PCR) SARS-CoV-2 RNA (RT-PCR) 12/01/21 12/01/21 03:48 03:48 MCV 94.1 MCH 33.9 H MCHC 36.1 H RDW 11.3 Plt Count 165 MPV 9.5 Immature Gran % (Auto) Neut % (Auto) Lymph % (Auto) Love % (Auto) Eos % (Auto) Baso % (Auto) Lymph # (Auto) Love # (Auto) Eos # (Auto) Baso # (Auto) Abs Immat Gran (auto) Absolute Neuts (auto) Absolute Nucleated RBC 0.000 Nucleated RBC % (auto) 0.0 Anion Gap 17 Estim Creat Clear Calc 71.7 Estimated GFR > 60 Random Glucose 211 H Lactic Acid Calcium 8.4 D Magnesium 1.1 L* Total Bilirubin 1.1 H Direct Bilirubin 0.8 H AST 30 D ALT 30 Alkaline Phosphatase 98 Total Protein 5.3 L Albumin 3.2 L Urine Color Urine Appearance Urine pH Ur Specific [place] Urine Protein Urine Glucose (UA) Urine Ketones Urine Blood Urine Nitrite Ur Leukocyte Esterase Urine RBC Urine WBC Ur Squamous Epith Cells Calcium Phosphate Cryst Urine Bacteria Hep Bs Antigen Hep Bs Antibody Hep B Core Total Ab Hepatitis C Ab (EIA) Influenza Type A (PCR) Influenza Type B (PCR) RSV RNA Qual (PCR) SARS-CoV-2 RNA (RT-PCR) Microbiology Microbiology Results: Microbiology 11/30/21 19:13 Blood Culture - Preliminary Blood - Venous Prelim: GNR Gram Stain only Assessment and Plan (1) Sepsis: Status: Acute (2) Pneumonia: Status: Acute (3) Elevated liver enzymes: Status: Acute Plan 65-year-old female with history of smoking and alcohol- patient getting admitted for sepsis/pneumonia. 1. Sepsis secondary to pneumonia Has leukocytosis, fever, tachycardia-seems to be improving Blood cultures -grew gram neg abhi , urine culture pending inaddition:hepatitis profile-hepatitis(eia) positive ,Hbsab: grayzone, Hepatitis B core ab : seems reactive Urine strep and Legionella antigen pending started on levaquin Id eval added 2. Possible COPD undiagnosed-exacerbation. Continue nebs, steroids, antibiotic. 3. alcohol use: Encouraged strongly to abstain? alcohol. Continue thiamine, folic acid, CIWA scale. 4. Elevated LFTs: Seems to be significantly improvin Possible related to alcohol use, added hepatitis profile-hepatitis(eia) positive ,Hbsab: grayzone, Hepatitis B core ab : seems reactive abdominal ultrasound -seems fine. 5.:? Current smoker:Encouraged strongly to abstain? smoking. Added nicotine patch. DVT prophylaxis subcu Lovenox. Quality Stroke Does the patient have a stroke diagnosis?: No VTE Prior VTE?: No VTE Risk Level:: Medical - moderate - high VTE Device Contraindication: N/A - Device Ordered VTE Drug Contraindication: N/A - Med Ordered
[2021-12-01] MEDS: Magnesium Sulfate/H2O 2 GM/50 ML PIGGYBACK IV (15:45)
[2021-12-01] MEDS: Enoxaparin Sodium 40 MG/0.4 ML SYRINGE SUBCUT (18:44)
[2021-12-01] MEDS: Magnesium Oxide 400 MG TABLET PO (18:44)
[2021-12-01] MEDS: Omeprazole 40 MG CAPSULE.DR PO (18:44)
--- NOTE | 2021-12-01 18:49 | PC.NURSE ---
has been complaining of chest burnign , holding chest as this RN witnesses episodes. no obvious changes on ekg monitor but additional ekg ordered and provider made aware.
--- NOTE | 2021-12-01 18:50 | ECG_ITS ---
Test Reason : CHEST PAIN Blood Pressure : / mmHG Vent. Rate : 088 BPM Atrial Rate : 088 BPM P-R Int : 170 ms QRS Dur : 092 ms QT Int : 414 ms P-R-T Axes : 061 044 059 degrees QTc Int : 500 ms Normal sinus rhythm Prolonged QT Abnormal ECG When compared with ECG of 30-NOV-2021 18:54, ST no longer depressed in Anterior leads Referred By: Hussein Briceño Electronically Signed By:ROSELINE ROBERTS
[2021-12-01] MEDS: levoFLOXacin/D5W 750 MG/150 ML PIGGYBACK 100 MG IV (18:54)
--- NOTE | 2021-12-01 21:07 | PC.NURSE ---
Pt. refused 2200 dose of Robitussin - states the med. gives her heartburn
[2021-12-01 22:00] LABS: Appearance Urine CLEAR; Color Urine YELLOW; Glucose Urine UA NEG (NEG); Leukocyte Esterase Urine NEG (NEG); Nitrite Urine NEG (NEG); Specific Gravity - Urine 1.025 (1.005-1.025); Urine Blood NEG (NEG); Urine Ketones NEG (NEG); Urine Protein NEG (NEG-TRACE)
[2021-12-02] VITALS (11 sets, daily range): BP systolic 99–144; BP diastolic 38–65; PULSE 76–106; RESP 13–20; TEMP 36.3–37.1; O2SAT 97–98; BMI 19.8
[2021-12-02 07:35] LABS: Anion Gap 15 (12-20); Blood Urea Nitrogen 12 mg/dL (9-16); Calcium 8.8 mg/dL (8.4-10.2); Carbon Dioxide 27 mmol/L (22-29); Chloride 96 mmol/L (96-108); Creatinine Clr Calc Pharmacy 67.1; Estimated Glomerular Filt Rate > 60; Glucose Random 185 mg/dL (60-115); Potassium 3.6 mmol/L (3.3-5.1); Sodium 134 mmol/L (135-145)
[2021-12-02 07:56] LABS: Hepatitis A Antibody IgM 0.12 Index (0-0.79); ~Hepatitis A Antibody IgM Nonreactive (Nonreactive)
--- NOTE | 2021-12-02 08:08 | PC.NURSE ---
RN to RN report given to Leslie DE LA CRUZ on [facility]. Preparing to admit to room 446. Family member (daughter) Rachele at bedside. Pt denies complaints at this time, states that she's feeling better than yesterday . Ate breakfast, plus saltine crackers & Gatorade Zero brought from home.
[2021-12-02] MEDS: Albuterol/Iprat 2.5/0.5MG 3 ML AMPUL.NEB INHALE ×4 (08:59→20:21)
[2021-12-02] MEDS: PHENobarbitaL 30 MG TABLET PO ×2 (10:58→19:53)
[2021-12-02] MEDS: Thiamine HCL 100 MG TABLET PO (10:58)
[2021-12-02] MEDS: Folic Acid 1 MG TABLET PO (10:58)
[2021-12-02] MEDS: Multivitamin TABLET 1 TAB PO (10:58)
[2021-12-02] MEDS: Nicotine 21 MG PATCH.TD24 TRANSDERMA (10:59)
[2021-12-02] MEDS: methylPREDNISolone Sod Succ 40 MG/ML VIAL IVPUSH ×2 (11:03→19:52)
[2021-12-02] MEDS: Magnesium Oxide 400 MG TABLET PO ×2 (11:07→17:08)
[2021-12-02] MEDS: oxyCODONE HCl Immed Release 5 MG TABLET PO ×3 (11:18→23:37)
[2021-12-02] MEDS: 0.9 % Sodium Chloride Flush 3 ML SYRINGE IVFLUSH ×3 (11:18→19:52)
[2021-12-02] MEDS: Famotidine 20 MG TABLET PO (13:14)
--- NOTE | 2021-12-02 13:47 | HO.PM.IMPN ---
Subjective Subjective Date of Service: 12/02/21 Interval History: Still has body aches, feels generalized weak.? Has cough and phlegm.? Electrolytic abnormalities. Review of Systems As above. Review of Systems: Yes all other systems are reviewed and are negative Physical Exam Vital Signs: Vital Signs: Last Vital Signs Temp 97.8 F 12/02/21 12:00 Pulse 98 12/02/21 12:00 Resp 20 12/02/21 12:00 BP 130/60 12/02/21 12:00 Pulse Ox 98 12/02/21 12:00 O2 Del Method 12/02/21 12:00 BMI result Body Mass Index 19.8 Appearance: Alert.? Oriented X3.? cvs: rrr, [id number] res: diminshed air entry right upper lobe , has wheezing b/l. abd: no rebound or guarding ,nt, bs present. ext pulses present , no cyanosis. neuro: axo3 , nonfocal. Objective Data Active Medications Albuterol/Ipratropium (Albuterol/Iprat 2.5/0.5mg 3 Ml Ampul.Neb) 3 ml INHALE RQ4H WHILE AWAKE [facility] Last Admin: 12/02/21 11:34 Dose: 3 ml Documented By: KETURAH Enoxaparin Sodium (Enoxaparin Sodium 40 Mg/0.4 Ml Syringe) 40 mg SUBCUT Q24H [facility] Last Admin: 12/01/21 18:44 Dose: 40 mg Documented By: PRICE Famotidine (Famotidine 20 Mg Tablet) 20 mg PO DAILY [facility] Last Admin: 12/02/21 13:14 Dose: 20 mg Documented By: LYLA Folic Acid (Folic Acid 1 Mg Tablet) 1 mg PO DAILY [facility] Last Admin: 12/02/21 10:58 Dose: 1 mg Documented By: LYLA Guaifenesin (Guaifenesin 100 Mg/5 Ml Liquid) 5 ml PO Q6H [facility] Last Admin: 12/02/21 11:21 Dose: Not Given Documented By: YLLA Non-Admin Reason: Patient Refused Levofloxacin (Levaquin) 750 mg in 150 mls @ 100 mls/hr IV Q24H [facility] Last Infusion: 12/01/21 20:36 Dose: 0 mls/hr Documented By: ELSIE Magnesium Oxide (Magnesium Oxide 400 Mg Tablet) 400 mg PO BIDPC [facility] Last Admin: 12/02/21 11:07 Dose: 400 mg Documented By: LYLA Methylprednisolone Sodium Succinate (Methylprednisolone Sod Succ 40 Mg/Ml Vial) 40 mg IVPUSH BID [facility] Last Admin: 12/02/21 11:03 Dose: 40 mg Documented By: LYLA Multivitamins/Vitamin C (Multivitamin Tablet) 1 tab PO DAILY [facility] Last Admin: 12/02/21 10:58 Dose: 1 tab Documented By: LYLA Nicotine (Nicotine 21 Mg Patch.Td24) 21 mg TRANSDERMA DAILY [facility] Last Admin: 12/02/21 10:59 Dose: 21 mg Documented By: LYLA Omeprazole (Omeprazole 40 Mg Capsule.Dr) 40 mg PO DAILY@0630 [facility] Last Admin: 12/02/21 06:35 Dose: Not Given Documented By: ELSIE Non-Admin Reason: Patient Asleep Oxycodone HCl (Oxycodone Hcl Immed Release 5 Mg Tablet) 5 mg PO Q6H PRN PRN Reason: Pain, Mild (Pain Scale 1-3) Last Admin: 12/02/21 11:18 Dose: 5 mg Documented By: LYLA Pharmacy Consult (Consult Rx Perform Med Rec) 1 each MISCELLANE ONCE PRN PRN Reason: Consult order Pharmacy Consult (Consult Rx Etoh Phenob Im/Po) 1 each MISCELLANE ONCE PRN; Protocol PRN Reason: Consult order Phenobarbital (Phenobarbital 30 Mg Tablet) 30 mg PO BID [facility] Stop: 12/02/21 21:01 Last Admin: 12/02/21 10:58 Dose: 30 mg Documented By: LYLA Phenobarbital (Phenobarbital 15 Mg Tablet) 15 mg PO BID [facility] Stop: 12/04/21 21:01 Phenobarbital (Phenobarbital 15 Mg Tablet) 15 mg PO DAILY [facility] Stop: 12/06/21 09:01 Sodium Chloride (0.9 % Sodium Chloride Flush 3 Ml Syringe) 3 ml IVFLUSH QSHIFT [facility] Last Admin: 12/02/21 11:18 Dose: 3 ml Documented By: LYLA Thiamine HCl (Thiamine Hcl 100 Mg Tablet) 100 mg PO DAILY [facility] Last Admin: 12/02/21 10:58 Dose: 100 mg Documented By: LYLA Labs CBC & Chem 7: 12/01/21 03:48 08/12/22 06:42 Labs: Laboratory Results - last 24 hr 11/30/21 12/01/21 12/02/21 14:08 21:55 06:42 Anion Gap 15 Estim Creat Clear Calc 67.1 Estimated GFR > 60 Random Glucose 185 H Calcium 8.8 Magnesium 2.0 Urine Color YELLOW Urine Appearance CLEAR Urine pH 6.0 Ur Specific [place] 1.025 Urine Protein NEG Urine Glucose (UA) NEG Urine Ketones NEG Urine Blood NEG Urine Nitrite NEG Ur Leukocyte Esterase NEG Hepatitis A IgM Ab Nonreactive Microbiology Microbiology Results: Microbiology 11/30/21 19:13 Blood Culture - Preliminary Blood - Venous Gram positive cocci 11/30/21 21:04 Blood Culture - Preliminary Blood - Venous No growth after 24 hours. 12/01/21 12:48 Gram Stain - Final Sputum - Expectorated Sputum Culture - Final Assessment and Plan (1) Sepsis: Status: Acute (2) Pneumonia: Status: Acute (3) Elevated liver enzymes: Status: Acute Plan 65-year-old female with history of smoking and alcohol- patient getting admitted for sepsis/pneumonia. 1. Sepsis secondary to pneumonia Has leukocytosis, fever, tachycardia-seems to be improving Blood cultures -grew gram neg abhi , urine culture pending inaddition:hepatitis profile-hepatitis(eia) positive ,Hbsab: grayzone, Hepatitis B core ab : seems reactive Urine strep and Legionella antigen pending started on levaquin Id eval added 2. Possible COPD undiagnosed-exacerbation. Continue nebs, steroids, antibiotic. 3. alcohol use: Encouraged strongly to abstain? alcohol. Continue thiamine, folic acid, CIWA scale. 4. Elevated LFTs: Seems to be significantly improvin Possible related to alcohol use, added hepatitis profile-hepatitis(eia) positive ,Hbsab: grayzone, Hepatitis B core ab : seems reactive abdominal ultrasound -seems fine. 5.:? Current smoker:Encouraged strongly to abstain? smoking. Added nicotine patch. DVT prophylaxis subcu Lovenox. inpatient need: pneumonia ,bacteremia needs IV antibiotics Quality Stroke Does the patient have a stroke diagnosis?: No VTE Prior VTE?: No VTE Risk Level:: Medical - moderate - high VTE Device Contraindication: N/A - Device Ordered VTE Drug Contraindication: N/A - Med Ordered
--- NOTE | 2021-12-02 14:10 | CA_ITS ---
Transthoracic Echocardiogram Patient (Last, First, Middle): Marjan Vasquez, Gender: Female Date of : 1955 Age: 65 Procedure Date: 12/02/2021 Procedure Type: Transthoracic Echocardiogram Location: [facility] [place] Height: 154.94 cm Weight: 47.17 kg BSA: 1.43 m2 Heart Rate: bpm BP: 128 / 60 mmHg Rewriter: Referring MD: Hortensia Fontenot MD Symptoms: bacteremia gram positive Study Quality: Adequate ECG Rhythm: Sinus Conclusions: - The left ventricular systolic function is normal. The calculated ejection fraction is 68% by biplane method. - Possible basal inferior hypokinesis in some views. - No obvious valvular pathology seen on this study. Findings Left Ventricle Normal left ventricular cavity size. There is normal left ventricular wall thickness. The left ventricular systolic function is normal. The calculated ejection fraction is 68% by biplane method. Diastolic function is normal for age. Possible basal inferior hypokinesis in some views. Right Ventricle Normal right ventricular cavity size and systolic function. Atria Both atria are normal in size. Aortic Valve The aortic valve was not well visualized. There is no aortic valve stenosis. There is no aortic valve regurgitation. Mitral Valve The mitral valve appears normal. There is no mitral valve regurgitation. There is no mitral valve stenosis. Pulmonic Valve The pulmonic valve was not well visualized. Tricuspid Valve Normal tricuspid valve structure. There is trace tricuspid valve regurgitation. The pulmonary artery systolic pressure is normal. Great Vessels The aortic annulus, sinuses of valsalva, and asc aorta are normal in size. Venous The inferior vena cava is normal in size and collapses greater than 50% with inspiration. Pericardium/Pleural There is a trivial pericardial effusion. Prior Study Comparison No prior study available for comparison. Recommendations, Care & Conclusions No obvious valvular pathology seen on this study. Measurements 2D Linear Measurements IVSd: 0.85 0.6-0.9/0.6-1.0 cm LVIDd: 3.82 3.9-5.3/4.2-5.9 cm LVIDd Index: 2.67 2.4-3.2/2.2-3.1 cm/m2 LVIDs: 2.57 2.0-3.6 cm LVPWd: 0.86 0.7-1.1 cm Ao Root: 2.80 2.1-3.5 cm LA Diam: 2.70 2.7-3.8/3.0-4.0 cm LAIDs Index: 1.89 1.5-2.3 cm/m2 LV Mass: 117.71 67-162/88-224 g LV Mass Index: 82.32 43-95/49-115 g/m2 LVOT Diam: 2.00 3.0+(-)1.3 cm 2D Systolic Function EF 4C: 65.30 >55% EF 2C: 68.90 >55% EF BiP: 67.60 >55% Mitral Valve MV Pk E: 0.80 MV PK A: 0.97 MV Decel Time: 93.00 E/A: 0.80 E'Lateral: 9.14 E'Medial: 6.85 E/E' Med: 11.60 E/E' Lat: 8.70 PHT: 27.00 MVA PHT: 8.15 Decel [place]: 8.53 Aortic Valve AoV Pk Bassam: 1.47 AoV Mn Bassam: 0.87 AoV VTI: 0.28 AoV Pk Grad: 9.00 Aov Mn Grad: 4.00 ROHAN Cont.VTI: 2.18 LVOT LVOT Pk Bassam: 0.97 LVOT Mn Bassam: 0.68 LVOT VTI: 0.20 LVOT Pk Grad: 4.00 LVOT Mn Grad: 2.00 LVOT Diam: 2.00 LVOT Area: 3.14 Diastolic Function MV Pk E: 0.80 MV Pk A: 0.97 E/A: 0.80 E'Medial: 6.85 E/E' Med: 11.60 E' Laterial: 9.14 E/E' Lat: 8.70 Right Ventricle TAPSE (mm): 26.00 TVS' Bassam: 14.00 Tricuspid Valve TR Pk Bassam: 2.55 TR Pk Grad: 26.00 RA Press: 3.00 RVSP: 29.00 Great Vessels Aorta Ao Root-2D: 2.80 2.0-3.7 cm Ao Asc: 2.80 2.1-3.4 cm Pulmonary Valve PV Pk Bassam: 1.48 Peak PV Grad: 9.00 Updated in Other Vendor System with Status of Final Km Cassidy MD electronically signed on 12/02/2021 5:07:52 PM with status of Final
--- NOTE | 2021-12-02 16:45 | W.PM.IDCN ---
History of Present Illness Data of Consult Service Date: 12/02/21 Requesting physician: Hortensia Fontenot Primary Care Provider: ANIYAH Saldana Reason for consult: bacteremia She presents with one week body aches and headaches. She has gram positive cocci chains blood. She has RUL pneumonia. Review of Systems Review of Systems: Yes all other systems are reviewed and are negative PMFSH Family History Family history: reviewed and not pertinent Social History Social History Household Members: Children Housing: House Do you presently have visiting nurse or other home services: No Patient Tobacco Use Status: Current everyday Tobacco user Tobacco use type: Cigarette e-Cigarette/Vaping Use: Never Used Second Hand Smoke Exposure: Yes service: No Current occupational status: retired [employer] Allergies Allergy/AdvReac Type Severity Reaction Status Date / Time Penicillins [PCN] Allergy Severe ANAPHYLAXIS Verified 11/30/21 13:37 penicillin V Allergy Unknown anaphylaxis Verified 11/30/21 13:37 Active Medications: Current Medications Albuterol/Ipratropium (Albuterol/Iprat 2.5/0.5mg 3 Ml Ampul.Neb) 3 ml INHALE RQ4H WHILE AWAKE [facility] Last Admin: 12/02/21 15:31 Dose: 3 ml Enoxaparin Sodium (Enoxaparin Sodium 40 Mg/0.4 Ml Syringe) 40 mg SUBCUT Q24H [facility] Last Admin: 12/01/21 18:44 Dose: 40 mg Famotidine (Famotidine 20 Mg Tablet) 20 mg PO DAILY [facility] Last Admin: 12/02/21 13:14 Dose: 20 mg Folic Acid (Folic Acid 1 Mg Tablet) 1 mg PO DAILY [facility] Last Admin: 12/02/21 10:58 Dose: 1 mg Guaifenesin (Guaifenesin 100 Mg/5 Ml Liquid) 5 ml PO Q6H [facility] Last Admin: 12/02/21 11:21 Dose: Not Given Levofloxacin (Levaquin) 750 mg in 150 mls @ 100 mls/hr IV Q24H [facility] Last Infusion: 12/01/21 20:36 Dose: Infused Magnesium Oxide (Magnesium Oxide 400 Mg Tablet) 400 mg PO BIDPC [facility] Last Admin: 12/02/21 11:07 Dose: 400 mg Methylprednisolone Sodium Succinate (Methylprednisolone Sod Succ 40 Mg/Ml Vial) 40 mg IVPUSH BID [facility] Last Admin: 12/02/21 11:03 Dose: 40 mg Multivitamins/Vitamin C (Multivitamin Tablet) 1 tab PO DAILY [facility] Last Admin: 12/02/21 10:58 Dose: 1 tab Nicotine (Nicotine 21 Mg Patch.Td24) 21 mg TRANSDERMA DAILY [facility] Last Admin: 12/02/21 10:59 Dose: 21 mg Omeprazole (Omeprazole 40 Mg Capsule.Dr) 40 mg PO DAILY@0630 [facility] Last Admin: 12/02/21 06:35 Dose: Not Given Oxycodone HCl (Oxycodone Hcl Immed Release 5 Mg Tablet) 5 mg PO Q6H PRN PRN Reason: Pain, Mild (Pain Scale 1-3) Last Admin: 12/02/21 11:18 Dose: 5 mg Pharmacy Consult (Consult Rx Perform Med Rec) 1 each MISCELLANE ONCE PRN PRN Reason: Consult order Pharmacy Consult (Consult Rx Etoh Phenob Im/Po) 1 each MISCELLANE ONCE PRN; Protocol PRN Reason: Consult order Phenobarbital (Phenobarbital 30 Mg Tablet) 30 mg PO BID [facility] Stop: 12/02/21 21:01 Last Admin: 12/02/21 10:58 Dose: 30 mg Phenobarbital (Phenobarbital 15 Mg Tablet) 15 mg PO BID [facility] Stop: 12/04/21 21:01 Phenobarbital (Phenobarbital 15 Mg Tablet) 15 mg PO DAILY [facility] Stop: 12/06/21 09:01 Sodium Chloride (0.9 % Sodium Chloride Flush 3 Ml Syringe) 3 ml IVFLUSH QSHIFT [facility] Last Admin: 12/02/21 11:18 Dose: 3 ml Thiamine HCl (Thiamine Hcl 100 Mg Tablet) 100 mg PO DAILY [facility] Last Admin: 12/02/21 10:58 Dose: 100 mg Home Medications Medication Instructions Recorded Confirmed Last Taken Type albuterol sulfate 90 mcg/actuation 2 puff inhalation Q4H PRN dyspnea 11/30/21 11/30/21 Unknown History aerosol inhaler multivitamin 1 tab PO DAILY 11/30/21 11/30/21 Unknown History Physical Exam Vital Signs: Vital Signs: Last Vital Signs Temp 98.7 F 12/02/21 15:18 Pulse 106 H 12/02/21 15:31 Resp 18 12/02/21 15:18 BP 132/60 12/02/21 15:18 Pulse Ox 97 12/02/21 15:18 O2 Del Method 12/02/21 15:18 BMI result Body Mass Index 19.8 Const: General: cooperative HEENT: Head: Yes normal to inspection Face and sinus: Yes normal facial exam Mouth: Normal oral and palatal mucosa present Teeth and gingiva: dentition normal Eyes: General: appearance normal, both eyes and all related structures Pupils: Equal, round and reactive pupils present Resp: Other: diminished breath sounds right Cardio: Rate: regular rate Rhythm: regular rhythm GI: Palpation (GI): Soft to palpation and nontender : General: Yes no CVA tenderness Back/Spine/Pelvis: Back: no CVA tenderness Skin: General skin exam: no rashes or lesions noted Neuro: General: moves all extremities Cranial nerves: Yes Equal, round and reactive pupils present Extrem: General: Yes normal to inspection Psych: Appearance: grossly normal Results Labs CBC & Chem 7: 12/01/21 03:48 12/02/21 06:42 Labs: BMP 12/02/21 06:42 Sodium 134 L Potassium 3.6 D Chloride 96 Carbon Dioxide 27 BUN 12 Creatinine 0.62 Calcium 8.8 Urine 12/01/21 Range/Units 21:55 Urine Color YELLOW Urine Appearance CLEAR Urine pH 6.0 (5.0-8.0) Ur Specific [place] 1.025 (1.005-1.025) Urine Protein NEG (NEG-TRACE) MG/DL Urine Glucose (UA) NEG (NEG) MG/DL Microbiology Microbiology Results: Microbiology 11/30/21 19:13 Blood - Venous Blood Culture - Preliminary Gram positive cocci 11/30/21 21:04 Blood - Venous Blood Culture - Preliminary No growth after 24 hours. 12/01/21 12:48 Sputum - Expectorated Gram Stain - Final 12/01/21 12:48 Sputum - Expectorated Sputum Culture - Final Assessment and Plan (1) Sepsis: Status: Acute this is likely gram positive cocci chains,strep pneumonia,less likely enterococcus. She has unknown pneumonia vaccine status. (2) Pneumonia: Status: Acute Plan agree with Levaquin probably 10 d vaccinate if needed for strep pneumonia
[2021-12-02] MEDS: guaiFENesin 100 MG/5 ML LIQUID PO (17:08)
[2021-12-02] MEDS: Enoxaparin Sodium 40 MG/0.4 ML SYRINGE SUBCUT (18:01)
[2021-12-02] MEDS: levoFLOXacin/D5W 750 MG/150 ML PIGGYBACK 100 MG IV (18:02)
[2021-12-02] MEDS: Calcium Carbonate 750 MG TAB.CHEW 1500 MG PO (19:53)
[2021-12-03] VITALS (9 sets, daily range): BP systolic 129–149; BP diastolic 54–100; PULSE 88–113; RESP 12–20; TEMP 36.1–37.1; O2SAT 95–100
[2021-12-03 05:02] LABS: Hepatitis B Core Antibody IgM NON-REACTIVE (NON-REACTIVE)
[2021-12-03] MEDS: Omeprazole 40 MG CAPSULE.DR PO (05:48)
[2021-12-03] MEDS: oxyCODONE HCl Immed Release 5 MG TABLET PO ×3 (07:23→22:54)
[2021-12-03] MEDS: 0.9 % Sodium Chloride Flush 3 ML SYRINGE IVFLUSH ×3 (07:25→20:13)
[2021-12-03] MEDS: Nicotine 21 MG PATCH.TD24 TRANSDERMA (10:12)
[2021-12-03] MEDS: Magnesium Oxide 400 MG TABLET PO ×2 (10:13→18:09)
[2021-12-03] MEDS: PHENobarbitaL 15 MG TABLET PO ×2 (10:13→20:13)
[2021-12-03] MEDS: methylPREDNISolone Sod Succ 40 MG/ML VIAL IVPUSH ×2 (10:13→20:13)
[2021-12-03] MEDS: Famotidine 20 MG TABLET PO (10:14)
[2021-12-03] MEDS: Multivitamin TABLET 1 TAB PO (10:14)
[2021-12-03] MEDS: Folic Acid 1 MG TABLET PO (10:14)
[2021-12-03] MEDS: Thiamine HCL 100 MG TABLET PO (10:14)
[2021-12-03] MEDS: Aspirin Enteric Coated 81 MG TABLET.DR PO (11:07)
[2021-12-03] MEDS: Albuterol/Iprat 2.5/0.5MG 3 ML AMPUL.NEB INHALE ×3 (11:20→20:34)
--- NOTE | 2021-12-03 15:48 | P.PNIM_ITS ---
Subjective Subjective Date of Service: 12/03/21 Interval History: Still has body aches, feels generalized weak.? Has cough and phlegm.? Electrolytic abnormalities Review of Systems Review of Systems: Yes all other systems are reviewed and are negative Physical Exam Vital Signs: Vital Signs: Last Vital Signs Temp 98.1 F 12/03/21 11:27 Pulse 98 12/03/21 14:41 Resp 18 12/03/21 14:41 BP 149/62 H 12/03/21 11:27 Pulse Ox 100 12/03/21 11:27 O2 Del Method 12/03/21 08:00 BMI result Body Mass Index 19.8 Appearance: Alert.? Oriented X3.? cvs: rrr, [id number] res: diminshed air entry right upper lobe , has wheezing b/l. abd: no rebound or guarding ,nt, bs present. ext pulses present , no cyanosis. neuro: axo3 , nonfocal. Objective Data Active Medications Albuterol/Ipratropium (Albuterol/Iprat 2.5/0.5mg 3 Ml Ampul.Neb) 3 ml INHALE RQ4H WHILE AWAKE [facility] Last Admin: 12/03/21 14:40 Dose: 3 ml Documented By: EDDIE Aspirin (Aspirin Enteric Coated 81 Mg Tablet.) 81 mg PO DAILY [facility] Last Admin: 12/03/21 11:07 Dose: 81 mg Documented By: DEVI Benzonatate (Benzonatate 100 Mg Capsule) 100 mg PO TID PRN PRN Reason: Cough Enoxaparin Sodium (Enoxaparin Sodium 40 Mg/0.4 Ml Syringe) 40 mg SUBCUT Q24H [facility] Last Admin: 12/02/21 18:01 Dose: 40 mg Documented By: LYLA Famotidine (Famotidine 20 Mg Tablet) 20 mg PO DAILY [facility] Last Admin: 12/03/21 10:14 Dose: 20 mg Documented By: DEVI Folic Acid (Folic Acid 1 Mg Tablet) 1 mg PO DAILY [facility] Last Admin: 12/03/21 10:14 Dose: 1 mg Documented By: DEVI Levofloxacin (Levaquin) 750 mg in 150 mls @ 100 mls/hr IV Q24H [facility] Last Infusion: 12/02/21 19:56 Dose: 0 mls/hr Documented By: CAMELIA Magnesium Oxide (Magnesium Oxide 400 Mg Tablet) 400 mg PO BIDPC [facility] Last Admin: 12/03/21 10:13 Dose: 400 mg Documented By: DEVI Methylprednisolone Sodium Succinate (Methylprednisolone Sod Succ 40 Mg/Ml Vial) 40 mg IVPUSH BID [facility] Last Admin: 12/03/21 10:13 Dose: 40 mg Documented By: DEVI Multivitamins/Vitamin C (Multivitamin Tablet) 1 tab PO DAILY [facility] Last Admin: 12/03/21 10:14 Dose: 1 tab Documented By: DEVI Nicotine (Nicotine 21 Mg Patch.Td24) 21 mg TRANSDERMA DAILY [facility] Last Admin: 12/03/21 10:12 Dose: 21 mg Documented By: DEVI Omeprazole (Omeprazole 40 Mg Capsule.Dr) 40 mg PO DAILY@0630 [facility] Last Admin: 12/03/21 05:48 Dose: 40 mg Documented By: HEAVENLY Oxycodone HCl (Oxycodone Hcl Immed Release 5 Mg Tablet) 5 mg PO Q6H PRN PRN Reason: Pain, Mild (Pain Scale 1-3) Last Admin: 12/03/21 07:23 Dose: 5 mg Documented By: CHRIS Pharmacy Consult (Consult Rx Perform Med Rec) 1 each MISCELLANE ONCE PRN PRN Reason: Consult order Pharmacy Consult (Consult Rx Etoh Phenob Im/Po) 1 each MISCELLANE ONCE PRN; Protocol PRN Reason: Consult order Phenobarbital (Phenobarbital 15 Mg Tablet) 15 mg PO BID [facility] Stop: 12/04/21 21:01 Last Admin: 12/03/21 10:13 Dose: 15 mg Documented By: DEVI Phenobarbital (Phenobarbital 15 Mg Tablet) 15 mg PO DAILY [facility] Stop: 12/06/21 09:01 Sodium Chloride (0.9 % Sodium Chloride Flush 3 Ml Syringe) 3 ml IVFLUSH QSHIFT [facility] Last Admin: 12/03/21 07:25 Dose: 3 ml Documented By: CHRIS Thiamine HCl (Thiamine Hcl 100 Mg Tablet) 100 mg PO DAILY [facility] Last Admin: 12/03/21 10:14 Dose: 100 mg Documented By: DEVI Labs CBC & Chem 7: 12/01/21 03:48 12/02/21 06:42 Labs: Laboratory Results - last 24 hr 11/30/21 14:08 Hep B Core IgM Ab NON-REACTIVE Microbiology Microbiology Results: Microbiology 11/30/21 19:13 Blood Culture - Final Blood - Venous Streptococcus pneumoniae 12/02/21 13:49 Blood Culture - Final Blood - Venous 12/02/21 13:49 Blood Culture - Final Blood - Venous 11/30/21 21:04 Blood Culture - Preliminary Blood - Venous No growth after 48 hours. Assessment and Plan (1) Sepsis: Status: Acute (2) Leukocytosis: Status: Acute (3) Elevated liver enzymes: Status: Acute Plan 65-year-old female with history of smoking and alcohol- patient getting admitted for sepsis/pneumonia. 1. Sepsis secondary to pneumonia Has leukocytosis, fever, tachycardia-seems to be improving Blood cultures -grew gram neg abhi , urine culture pending inaddition:hepatitis profile-hepatitis(eia) positive ,Hbsab: grayzone, Hepatitis B core ab : seems reactive Urine strep and Legionella antigen pending started on levaquin Id eval added 2. Possible COPD undiagnosed-exacerbation. Continue nebs, steroids, antibiotic. 3. alcohol use: Encouraged strongly to abstain? alcohol. Continue thiamine, folic acid, CIWA scale. 4. Elevated LFTs:? Seems to be significantly improvin Possible related to alcohol use, added hepatitis profile-hepatitis(eia) positive ,Hbsab: grayzone, Hepatitis B core ab : seems reactive ?abdominal ultrasound -seems fine. 5.:? Current smoker:Encouraged strongly to abstain? smoking. Added nicotine patch. DVT prophylaxis subcu Lovenox. inpatient need: pneumonia ,bacteremia needs IV antibiotics Quality Stroke Does the patient have a stroke diagnosis?: No VTE Prior VTE?: No VTE Risk Level:: Medical - moderate - high VTE Device Contraindication: N/A - Device Ordered VTE Drug Contraindication: N/A - Med Ordered
[2021-12-03] MEDS: Enoxaparin Sodium 40 MG/0.4 ML SYRINGE SUBCUT (18:09)
[2021-12-03] MEDS: levoFLOXacin/D5W 750 MG/150 ML PIGGYBACK 100 MG IV (19:32)
[2021-12-04] VITALS (8 sets, daily range): BP systolic 127–146; BP diastolic 53–86; PULSE 86–101; RESP 15–20; TEMP 36.6–37.1; O2SAT 96–100
[2021-12-04] MEDS: Omeprazole 40 MG CAPSULE.DR PO (05:41)
[2021-12-04 07:58] LABS: Cholesterol 120 mg/dL; HDL Cholesterol 27 mg/dL; LDL Cholesterol Calculated 78 mg/dl; Triglycerides 75 mg/dL
[2021-12-04] MEDS: 0.9 % Sodium Chloride Flush 3 ML SYRINGE IVFLUSH ×3 (08:05→21:25)
[2021-12-04] MEDS: methylPREDNISolone Sod Succ 40 MG/ML VIAL IVPUSH ×2 (08:06→21:23)
[2021-12-04] MEDS: Thiamine HCL 100 MG TABLET PO (08:08)
[2021-12-04] MEDS: PHENobarbitaL 15 MG TABLET PO ×2 (08:08→21:24)
[2021-12-04] MEDS: Folic Acid 1 MG TABLET PO (08:08)
[2021-12-04] MEDS: Magnesium Oxide 400 MG TABLET PO ×2 (08:08→17:31)
[2021-12-04] MEDS: Aspirin Enteric Coated 81 MG TABLET.DR PO (08:08)
[2021-12-04] MEDS: Famotidine 20 MG TABLET PO (08:08)
[2021-12-04] MEDS: Multivitamin TABLET 1 TAB PO (08:09)
[2021-12-04] MEDS: Nicotine 21 MG PATCH.TD24 TRANSDERMA (08:11)
--- NOTE | 2021-12-04 10:44 | P.CONCA_ITS ---
History of Present Illness History of Present Illness Date of Service: 12/04/21 Chief complaint: Sepsis/ pneumonia Narrative: This is a cardiology consultation regarding possible wall motion abnormality on the echocardiogram. Patient is mainly here for sepsis from pneumonia. He has a history of smoking as well as alcohol excess. However, from the cardiac standpoint she denies any history of coronary artery disease or myocardial infarction or cardiomyopathy or in fact any other cardiac issues in the past. She has never had exertional type chest pains or in fact any form of chest pain. Even during this hospitalization she denies any cardiac symptoms. States she is doing okay. Review of Systems Review of Systems: Yes all other systems are reviewed and are negative Constitutional: Constitutional: Reports as per HPI Eyes: Eyes: Reports as per HPI ENT: Reports as per HPI Cardiovascular: Cardiovascular: Reports as per HPI, Denies acrocyanosis, Denies cool extremities, Denies chest pain, Denies leg edema, Denies lightheadedness, Denies palpitations and Denies dyspnea Respiratory: Respiratory: Reports as per HPI, Reports no additional respiratory complaints and Denies dyspnea Gastrointestinal: Gastrointestinal: Reports as per HPI and Reports no additional gastrointestinal complaints Genitourinary: Genitourinary: Reports as per HPI Musculoskeletal: Musculoskeletal: Reports no additional musculoskeletal complaints and Reports as per HPI Integumentary/Breasts: Skin/Breast: Reports system reviewed and no additional complaints, except as docu Neurologic: Reports system reviewed and no additional complaints, except as documented and Reports as per HPI Psychiatric: Psychiatric: Reports no additional psychiatric complaints and Reports as per HPI Endocrine: Endocrine: Reports no additional endocrine complaints, Reports as per HPI and Denies palpitations Hematologic/Lymphatic: Hematologic/Lymphatic: Reports no additional hematologic/lymphatic complaints and Reports as per HPI Allergic/Immunologic: Allergic/Immunologic: Reports no additional allergic/immunologic complaints and Reports as per HPI PMF Past Medical History Medical History Excessive drinking alcohol Smoking Family History Pertinent family history: Patient denies any significant cardiac issues in the family. Family history: reviewed and not pertinent Social History Social History Household Members: Children Housing: House Do you presently have visiting nurse or other home services: No Patient Tobacco Use Status: Current everyday Tobacco user Tobacco use type: Cigarette e-Cigarette/Vaping Use: Never Used Second Hand Smoke Exposure: Yes service: No Current occupational status: retired Meds Allergies Allergy/AdvReac Type Severity Reaction Status Date / Time Penicillins [PCN] Allergy Severe ANAPHYLAXIS Verified 11/30/21 13:37 penicillin V Allergy Unknown anaphylaxis Verified 11/30/21 13:37 Active Medications: Current Medications Albuterol/Ipratropium (Albuterol/Iprat 2.5/0.5mg 3 Ml Ampul.Neb) 3 ml INHALE RQ4H WHILE AWAKE [facility] Last Admin: 12/04/21 08:01 Dose: Not Given Aspirin (Aspirin Enteric Coated 81 Mg Tablet.) 81 mg PO DAILY [facility] Last Admin: 12/04/21 08:08 Dose: 81 mg Benzonatate (Benzonatate 100 Mg Capsule) 100 mg PO TID PRN PRN Reason: Cough Enoxaparin Sodium (Enoxaparin Sodium 40 Mg/0.4 Ml Syringe) 40 mg SUBCUT Q24H [facility] Last Admin: 12/03/21 18:09 Dose: 40 mg Famotidine (Famotidine 20 Mg Tablet) 20 mg PO DAILY [facility] Last Admin: 12/04/21 08:08 Dose: 20 mg Folic Acid (Folic Acid 1 Mg Tablet) 1 mg PO DAILY [facility] Last Admin: 12/04/21 08:08 Dose: 1 mg Levofloxacin (Levaquin) 750 mg in 150 mls @ 100 mls/hr IV Q24H [facility] Last Infusion: 12/03/21 21:52 Dose: Infused Magnesium Oxide (Magnesium Oxide 400 Mg Tablet) 400 mg PO BIDPC [facility] Last Admin: 12/04/21 08:08 Dose: 400 mg Methylprednisolone Sodium Succinate (Methylprednisolone Sod Succ 40 Mg/Ml Vial) 40 mg IVPUSH BID [facility] Last Admin: 12/04/21 08:06 Dose: 40 mg Multivitamins/Vitamin C (Multivitamin Tablet) 1 tab PO DAILY [facility] Last Admin: 12/04/21 08:09 Dose: 1 tab Nicotine (Nicotine 21 Mg Patch.Td24) 21 mg TRANSDERMA DAILY [facility] Last Admin: 12/04/21 08:11 Dose: 21 mg Omeprazole (Omeprazole 40 Mg Capsule.) 40 mg PO DAILY@0630 [facility] Last Admin: 12/04/21 05:41 Dose: 40 mg Oxycodone HCl (Oxycodone Hcl Immed Release 5 Mg Tablet) 5 mg PO Q6H PRN PRN Reason: Pain, Mild (Pain Scale 1-3) Last Admin: 12/03/21 22:54 Dose: 5 mg Pharmacy Consult (Consult Rx Perform Med Rec) 1 each MISCELLANE ONCE PRN PRN Reason: Consult order Pharmacy Consult (Consult Rx Etoh Phenob Im/Po) 1 each MISCELLANE ONCE PRN; Protocol PRN Reason: Consult order Phenobarbital (Phenobarbital 15 Mg Tablet) 15 mg PO BID [facility] Stop: 12/04/21 21:01 Last Admin: 12/04/21 08:08 Dose: 15 mg Phenobarbital (Phenobarbital 15 Mg Tablet) 15 mg PO DAILY [facility] Stop: 12/06/21 09:01 Sodium Chloride (0.9 % Sodium Chloride Flush 3 Ml Syringe) 3 ml IVFLUSH QSHIFT [facility] Last Admin: 12/04/21 08:05 Dose: 3 ml Thiamine HCl (Thiamine Hcl 100 Mg Tablet) 100 mg PO DAILY [facility] Last Admin: 12/04/21 08:08 Dose: 100 mg Home Medications Medication Instructions Recorded Confirmed Last Taken Type albuterol sulfate 90 mcg/actuation 2 puff inhalation Q4H PRN dyspnea 11/30/21 11/30/21 Unknown History aerosol inhaler multivitamin 1 tab PO DAILY 11/30/21 11/30/21 Unknown History Physical Exam Vital Signs: Vital Signs: Last Vital Signs Temp 98.0 F 12/04/21 08:00 Pulse 90 12/04/21 08:00 Resp 20 12/04/21 08:00 BP 146/77 H 12/04/21 08:00 Pulse Ox 97 12/04/21 08:00 O2 Del Method 12/04/21 08:00 BMI result Body Mass Index 19.8 Const: General: comfortable and no acute distress Orientation/consciousness: patient oriented x3 HEENT: Other: Unremarkable Head: Yes normal to inspection Neck: Neck: Yes normal visual inspection Chest: Chest palpation & inspection: normal inspection of the chest Resp: Auscultation: clear to auscultation bilaterally Cardio: Palpation: normal PMI Heart sounds: S1 normal heart sound present, S2 normal heart sound present, no gallops, no murmurs and no rubs GI: Palpation (GI): Soft to palpation Back/Spine/Pelvis: Other: unremarkable Skin: General skin exam: no rashes or lesions noted Neuro: General: patient oriented x3 Extrem: General: Yes normal to inspection Psych: Mental Status: mental status grossly normal Objective Labs and Meds Result diagrams: 12/01/21 03:48 12/02/21 06:42 Lab results: Laboratory Results - last 24 hr 12/04/21 05:39 Triglycerides 75 Cholesterol 120 LDL Cholesterol, Calc 78 HDL Cholesterol 27 ECG Interpretation: EKG with sinus tachycardia at 115/Min; nonspecific ST-T changes. Assessment and Plan (1) Regional wall motion abnormality of heart: Status: Acute Plan Echocardiogram with LVEF 68%. Possible basal inferior hypokinesis but not definitive. Clinically, she does not have any clear cardiac symptoms. Risk factors include age, smoking and alcohol excess. Can check high sensitivity troponins. If this is negative, then can pursue outpatient workup with stress testing. Discussed with Dr. Fontenot. Total time spent including review of hospitalization records, counseling, documentation and coordination of care-50 minutes. Procedures Date of Service Date of Service: 12/04/21
[2021-12-04] MEDS: oxyCODONE HCl Immed Release 5 MG TABLET PO ×2 (11:34→21:24)
[2021-12-04 14:12] LABS: Troponin-I High Sensitivity < 3.5 ng/L (<3.5-17.0)
--- NOTE | 2021-12-04 14:12 | HO.PM.IMPN ---
Subjective Subjective Date of Service: 12/04/21 Interval History: Still has body aches, feels generalized weak.? Has cough and phlegm.? Electrolytic abnormalities Review of Systems Review of Systems: Yes all other systems are reviewed and are negative Physical Exam Vital Signs: Vital Signs: Last Vital Signs Temp 97.9 F 12/04/21 11:50 Pulse 87 12/04/21 11:50 Resp 20 12/04/21 11:50 BP 136/66 12/04/21 11:50 Pulse Ox 96 12/04/21 11:50 O2 Del Method 12/04/21 11:50 BMI result Body Mass Index 19.8 Appearance: Alert.? Oriented X3.? cvs: rrr, [id number] res: air entry improving ,has few rhonchii abd: no rebound or guarding ,nt, bs present. ext pulses present , no cyanosis. neuro: axo3 , nonfocal. ? Objective Data Active Medications Albuterol/Ipratropium (Albuterol/Iprat 2.5/0.5mg 3 Ml Ampul.Neb) 3 ml INHALE RQ4H WHILE AWAKE [facility] [place] Last Admin: 12/04/21 11:03 Dose: Not Given Documented By: EDDIE Non-Admin Reason: Patient Refused Aspirin (Aspirin Enteric Coated 81 Mg Tablet.) 81 mg PO DAILY [facility] [place] Last Admin: 12/04/21 08:08 Dose: 81 mg Documented By: DEVI Benzonatate (Benzonatate 100 Mg Capsule) 100 mg PO TID PRN PRN Reason: Cough Enoxaparin Sodium (Enoxaparin Sodium 40 Mg/0.4 Ml Syringe) 40 mg SUBCUT Q24H [facility] [place] Last Admin: 12/03/21 18:09 Dose: 40 mg Documented By: DEVI Famotidine (Famotidine 20 Mg Tablet) 20 mg PO DAILY [facility] [place] Last Admin: 12/04/21 08:08 Dose: 20 mg Documented By: DEVI Folic Acid (Folic Acid 1 Mg Tablet) 1 mg PO DAILY [facility] [place] Last Admin: 12/04/21 08:08 Dose: 1 mg Documented By: DEVI Levofloxacin (Levaquin) 750 mg in 150 mls @ 100 mls/hr IV Q24H [facility] [place] Last Infusion: 12/03/21 21:52 Dose: 0 mls/hr Documented By: CAMELIA Magnesium Oxide (Magnesium Oxide 400 Mg Tablet) 400 mg PO BIDPC [facility] [place] Last Admin: 12/04/21 08:08 Dose: 400 mg Documented By: DEVI Methylprednisolone Sodium Succinate (Methylprednisolone Sod Succ 40 Mg/Ml Vial) 40 mg IVPUSH BID [facility] [place] Last Admin: 12/04/21 08:06 Dose: 40 mg Documented By: DEVI Multivitamins/Vitamin C (Multivitamin Tablet) 1 tab PO DAILY [facility] [place] Last Admin: 12/04/21 08:09 Dose: 1 tab Documented By: DEVI Nicotine (Nicotine 21 Mg Patch.Td24) 21 mg TRANSDERMA DAILY [facility] [place] Last Admin: 12/04/21 08:11 Dose: 21 mg Documented By: DEVI Omeprazole (Omeprazole 40 Mg Capsule.Dr) 40 mg PO DAILY@0630 [facility] [place] Last Admin: 12/04/21 05:41 Dose: 40 mg Documented By: NELSONTEKJb Oxycodone HCl (Oxycodone Hcl Immed Release 5 Mg Tablet) 5 mg PO Q6H PRN PRN Reason: Pain, Mild (Pain Scale 1-3) Last Admin: 12/04/21 11:34 Dose: 5 mg Documented By: SHONDA Pharmacy Consult (Consult Rx Perform Med Rec) 1 each MISCELLANE ONCE PRN PRN Reason: Consult order Pharmacy Consult (Consult Rx Etoh Phenob Im/Po) 1 each MISCELLANE ONCE PRN; Protocol PRN Reason: Consult order Phenobarbital (Phenobarbital 15 Mg Tablet) 15 mg PO BID [facility] [place] Stop: 12/04/21 21:01 Last Admin: 12/04/21 08:08 Dose: 15 mg Documented By: DEVI Phenobarbital (Phenobarbital 15 Mg Tablet) 15 mg PO DAILY [facility] [place] Stop: 12/06/21 09:01 Sodium Chloride (0.9 % Sodium Chloride Flush 3 Ml Syringe) 3 ml IVFLUSH QSHIFT [facility] [place] Last Admin: 12/04/21 08:05 Dose: 3 ml Documented By: DEVI Thiamine HCl (Thiamine Hcl 100 Mg Tablet) 100 mg PO DAILY [facility] [place] Last Admin: 12/04/21 08:08 Dose: 100 mg Documented By: DEVI Labs CBC & Chem 7: 12/01/21 03:48 12/02/21 06:42 Labs: Laboratory Results - last 24 hr 12/04/21 05:39 Triglycerides 75 Cholesterol 120 LDL Cholesterol, Calc 78 HDL Cholesterol 27 Assessment and Plan (1) Regional wall motion abnormality of heart: Status: Acute (2) Pneumonia: Status: Acute (3) Sepsis: Status: Acute (4) Bacteremia: Status: Acute Plan 65-year-old female with history of smoking and alcohol- patient getting admitted for sepsis/pneumonia. 1. Sepsis secondary to pneumonia Has leukocytosis, fever, tachycardia-seems to be improved. Blood cultures -strep pneumo, repeat blood cultures pendin inaddition:hepatitis profile-hepatitis(eia) positive ,Hbsab: grayzone, Hepatitis B core ab : seems reactive Urine strep and Legionella antigen pending started on levaquin Id eval noted -continue above management ,ID follow up 2. Possible COPD undiagnosed-exacerbation. Continue nebs, steroids, antibiotic. 3. alcohol use: Encouraged strongly to abstain? alcohol. Continue thiamine, folic acid, CIWA scale. 4. Elevated LFTs:? Seems to be significantly improvin Possible related to alcohol use, added hepatitis profile-hepatitis(eia) positive ,Hbsab: grayzone, Hepatitis B core ab : seems reactive ?abdominal ultrasound -seems fine. 5.:? Current smoker:Encouraged strongly to abstain? smoking. Added nicotine patch. DVT prophylaxis subcu Lovenox. 6. abnormal echo:? inferior wma added troponin, asa and cardiology eval generalised weak: pt eval inpatient need: pneumonia ,bacteremia needs IV antibiotics, abnormal echo Quality Stroke Does the patient have a stroke diagnosis?: No VTE Prior VTE?: No VTE Risk Level:: Medical - moderate - high VTE Device Contraindication: N/A - Device Ordered VTE Drug Contraindication: N/A - Med Ordered
[2021-12-04] MEDS: Albuterol/Iprat 2.5/0.5MG 3 ML AMPUL.NEB INHALE ×2 (15:25→20:04)
[2021-12-04] MEDS: levoFLOXacin/D5W 750 MG/150 ML PIGGYBACK 100 MG IV (21:23)
[2021-12-04] MEDS: Enoxaparin Sodium 40 MG/0.4 ML SYRINGE SUBCUT (21:23)
[2021-12-05] VITALS (7 sets, daily range): BP systolic 116–145; BP diastolic 55–67; PULSE 78–98; RESP 16–20; TEMP 36.3–36.9; O2SAT 96–98
[2021-12-05] MEDS: Omeprazole 40 MG CAPSULE.DR PO (06:23)
[2021-12-05] MEDS: Albuterol/Iprat 2.5/0.5MG 3 ML AMPUL.NEB INHALE ×2 (07:37→11:31)
[2021-12-05] MEDS: Folic Acid 1 MG TABLET PO (10:38)
[2021-12-05] MEDS: Multivitamin TABLET 1 TAB PO (10:38)
[2021-12-05] MEDS: Magnesium Oxide 400 MG TABLET PO ×2 (10:38→18:22)
[2021-12-05] MEDS: oxyCODONE HCl Immed Release 5 MG TABLET PO ×2 (10:39→21:12)
[2021-12-05] MEDS: Aspirin Enteric Coated 81 MG TABLET.DR PO (10:39)
[2021-12-05] MEDS: Famotidine 20 MG TABLET PO (10:39)
[2021-12-05] MEDS: Thiamine HCL 100 MG TABLET PO (10:39)
[2021-12-05] MEDS: PHENobarbitaL 15 MG TABLET PO (10:40)
[2021-12-05] MEDS: methylPREDNISolone Sod Succ 40 MG/ML VIAL IVPUSH ×2 (10:40→21:13)
[2021-12-05] MEDS: Nicotine 21 MG PATCH.TD24 TRANSDERMA (10:41)
[2021-12-05] MEDS: 0.9 % Sodium Chloride Flush 3 ML SYRINGE IVFLUSH ×2 (10:42→18:22)
--- NOTE | 2021-12-05 13:31 | PM.DS ---
DS: Providers Provider Date of Service: 12/05/21 Date of admission: 11/30/21 18:32 Primary care physician: ANIYAH Saldana Consults: 12/01/21 13:14 Consult to Infectious Diseases Routine Consulting Provider: Magaly Segura Reason for consultation: sepsis/pneumonia/gram neg bactermia Has provider been notified: No 12/03/21 10:20 Consult to Cardiology Routine Consulting Provider: [facility] Reason for consultation: abnormal echo-infeoir wma Has provider been notified: No 12/05/21 10:38 Consult to Care Team Routine Comment: Reason for consultation: alcohol use DS: Diagnosis Discharge Diagnosis (1) Regional wall motion abnormality of heart: Status: Acute (2) Pneumonia: Status: Acute (3) Sepsis: Status: Acute (4) Bacteremia: Status: Acute DS: Summary Hospital Course Hospital Course: 65-year-old female with history of smoking and alcohol use comes to emergency room because of 1 week?body aches, headache, shortness of breath a nonproductive cough with tactile temps at home.? Patient also had some nausea vomiting and diarrhea in the last week.? She said her nausea vomiting and diarrhea is improved but she is having coughing and pain with coughing. She seems generalized weak, felt fever at home and also had chills.? Also her appetite is decreased. She denies any recent travel or any sick contacts. Past medical history: She says that she had question of possible lupus 10 years ago but does not take any medication for lupus and does not follow any specialist for that.? Currently does not say any symptoms or rash. Possible undiagnosed COPD. Social history: Lives with her son, uses half pack of cigarettes every day from last 30-40 years, drinks every day 3-4 nips of fireball. Patient denies any family history of any medical problems . Lab imaging reviewed: Patient had WBC count of 13, tachycardia, elevated LFTs Chest x-ray shows?Right upper lobe pneumonia. Hospital course: Patient was admitted for sepsis secondary to pneumonia-started on IV antibiotics seems to be improved significantly ,in addition blood cultures showed had also bacteremia: Seen by infectious disease recommended to continue antibiotic for 1 week, please complete the course, please repeat chest imaging in 3-4 weeks to see resolution of pneumonia outpatient. Patient has hepatitis-C serology positive, viral load ordered: Follow-up outpatient with Infectious Disease Dr. Segura for further management. Elevated liver enzymes possibly related to alcohol, also hepatitis-C serology also positive above, hepatitis C viral load ordered and pending-patient was strongly advised to added abstain from alcohol. Follow-up with Infectious Disease out patiently for hepatitis C and B serology positive. Monitor LFT outpatient with PCP. Hypomagnesemia and hypokalemia repleted and resolved. Patient had abnormal echo, but cardiac enzymes seems fine: Seen by Cardiology-recommended outpatient cardiac testing . Cardio may arrange their own appointment. Above management discussed with the patient and her daughter in detail length both understand and in agreement with the above plan, time spent 50 minutes and 50% time spent on counseling. Significant findings: As above. Procedures performed: None. Treatment and response: As above. Complications: None. Time Spent with Patient Time attestation: Total time spent providing and/or coordinating discharge services: Discharge coordination time: Greater than 30 minutes Quality: Safe Use of Opioids Does Pt have an Active Cancer Diagnosis on the Problem List?: No Quality: Stroke Does the patient have a stroke diagnosis?: No Physical Exam Vital Signs: Vital Signs: Last Vital Signs Temp 98.1 F 12/05/21 11:44 Pulse 98 12/05/21 11:44 Resp 20 12/05/21 11:44 BP 143/67 H 12/05/21 11:44 Pulse Ox 96 12/05/21 11:44 O2 Del Method 12/05/21 11:44 BMI result Body Mass Index 19.8 ?Appearance: Alert.? Oriented X3.? cvs: rrr, [id number] res: fair air entry ,no rales or wheezing abd: no rebound or guarding ,nt, bs present. ext pulses present , no cyanosis. neuro: axo3 , nonfocal. DS: Data Data Completed and Pending Labs on day of discharge: Laboratory Results - last 24 hr 12/04/21 11:52 Troponin I High Sens < 3.5 Preliminary micro results at discharge 12/03/21 15:33 Blood Culture - Preliminary Blood - Venous No growth after 24 hours. 12/03/21 15:33 Blood Culture - Preliminary Blood - Venous No growth after 24 hours. 11/30/21 21:04 Blood Culture - Preliminary Blood - Venous No growth after 48 hours. ? 11/30/21 ? 14:08 Hep B Core IgM Ab ?NON-REACTIVE 11/30/21 12/01/21 12/02/21 ? 14:08 21:55 06:42 Anion Gap ? ? ?15 Estim Creat Clear Calc ? ? ?67.1 Estimated GFR ? ? ?> 60 Random Glucose ? ? ?185 H Calcium ? ? ?8.8 Magnesium ? ? ?2.0 Urine Color ? ?YELLOW ? Urine Appearance ? ?CLEAR ? Urine pH ? ?6.0 ? Ur Specific [place] ? ?1.025 ? Urine Protein ? ?NEG ? Urine Glucose (UA) ? ?NEG ? Urine Ketones ? ?NEG ? Urine Blood ? ?NEG ? Urine Nitrite ? ?NEG ? Ur Leukocyte Esterase ? ?NEG ? Hepatitis A IgM Ab ?Nonreactive ? ? Additional Comments Additional comments: ?US/US abdomen complete IMPRESSION: ? 1. Normal hepatic echotexture. No evidence of steatosis or morphologic features of advanced cirrhosis. 2. No suspicious liver lesions. 3. No significant biliary ductal dilation. 4. Unremarkable appearance of the pancreas, spleen, and both kidneys. 5. Contracted/incompletely distended thick-walled gallbladder. No evidence of cholelithiasis or specific sonographic findings of acute cholecystitis. XR/XR chest 2V IMPRESSION: Right upper lobe pneumonia. Discharge Plan Discharge Patient Disposition: Home, Self-Care Discharge Diagnosis: Sepsis pneumonia, strep pneumo bacteremia, hepatitis C serology positive Referrals: Magaly Segura MD [Physician] - 2 Weeks (follow up outpatient.) Mary Anne Casper CNS [Primary Care Provider] - 1 Week Discharge Medications: New levofloxacin 750 mg tablet 750 mg PO DAILY Qty: 7 0RF Continued albuterol sulfate 90 mcg/actuation HFA aerosol inhaler 2 puff inhalation Q4H PRN (Reason: dyspnea) multivitamin Tablet 1 tab PO DAILY Discharge Orders: Discharge Order (Routine); Ordered 12/05/21 Ordered By: Hortensia Fontenot Diet: Advance to usual diet Activity on Discharge: As tolerated Stand Alone Forms: Patient Portal Discharge page Care Plan Goals: Patient was admitted for sepsis secondary to pneumonia-started on IV antibiotics seems to be improved significantly ,in addition blood cultures showed had also bacteremia: Seen by infectious disease recommended to continue antibiotic for 1 week, please complete the course, please repeat chest imaging in 3-4 weeks to see resolution of pneumonia outpatient. Patient has hepatitis-C serology positive, viral load ordered: Follow-up outpatient with Infectious Disease Dr. Segura for further management. Elevated liver enzymes possibly related to alcohol, also hepatitis-C serology also positive above-patient was strongly advised to added abstain from alcohol. Monitor LFT outpatient with PCP. Hypomagnesemia and hypokalemia repleted and resolved. Patient had abnormal echo, but cardiac enzymes seems fine: Seen by Cardiology-recommended outpatient cardiac testing . Cardio may arrange their own appointment. Health Concerns: Monitor LFTs as above. Complete the course of antibiotic and repeat chest imaging 3-4 weeks to resolution of pneumonia. Monitor BMP to check for electrolytes out patiently Follow-up with Infectious Disease as above. If any new symptoms including shortness of breath or chest pain or fever or chills please come to the nearest emergency room for further evaluation. Plan of Treatment: As above. Assessment: As above.
--- NOTE | 2021-12-05 13:49 | MHC.CM.PN ---
pt dcd home no skilled services ordered by
--- NOTE | 2021-12-05 16:41 | MHC.CM.NN ---
THIS CM MET W/PT AND DTTRS DANITZA AND LEO AT BEDSIDE AT HOSPITALIST REQUEST, PT MET W/RECOVERY PROVIDER ATE IN DAY AND WERE GIVEN LIST OF INPT SA TX PROGRAMS, BOTH DTRS CONCERNED THEY AND PT WOULD LIKE A SA TX PROGRAM FOR PT AND WOULD LIKE PT TO STAY TONIGHT WHILE THEY MAKE CALLS AND ASSIST PT IN FINDING PLACEMENT, DTR LEO REPORTS TO THIS CM AFTER HOSPITALIST LEFT ROOM THAT SHE IS WILLING TO TAKE PT IN IF THEY ARE UNABLE TO FIND PLACEMENT FOR PT BY TOMORROW WEDNESDAY 12/06. HOSPITALIST AGREEABLE TO KEEP PT IN HOSPITAL ONE MORE NIGHT.
--- NOTE | 2021-12-05 16:48 | HO.PM.IMPN ---
Subjective Subjective Date of Service: 12/06/21 Interval History: pneumonia Review of Systems Patient improved significantly Physical Exam Vital Signs: Vital Signs: Last Vital Signs Temp 98.5 F 12/05/21 15:11 Pulse 93 12/05/21 15:11 Resp 18 12/05/21 15:11 BP 141/63 H 12/05/21 15:11 Pulse Ox 98 12/05/21 15:11 O2 Del Method 12/05/21 15:11 BMI result Body Mass Index 19.8 Appearance: Alert.? Oriented X3.? cvs: rrr, [id number] res: air entry improving ,has few rhonchii abd: no rebound or guarding ,nt, bs present. ext pulses present , no cyanosis. neuro: axo3 , nonfocal. ? Objective Data Active Medications Albuterol/Ipratropium (Albuterol/Iprat 2.5/0.5mg 3 Ml Ampul.Neb) 3 ml INHALE RQ4H WHILE AWAKE [facility] Last Admin: 12/05/21 15:46 Dose: Not Given Documented By: EDDIE Non-Admin Reason: Patient Refused Aspirin (Aspirin Enteric Coated 81 Mg Tablet.) 81 mg PO DAILY [facility] Last Admin: 12/05/21 10:39 Dose: 81 mg Documented By: LYLA Benzonatate (Benzonatate 100 Mg Capsule) 100 mg PO TID PRN PRN Reason: Cough Enoxaparin Sodium (Enoxaparin Sodium 40 Mg/0.4 Ml Syringe) 40 mg SUBCUT Q24H [facility] Last Admin: 12/04/21 21:23 Dose: 40 mg Documented By: SAE Famotidine (Famotidine 20 Mg Tablet) 20 mg PO DAILY [facility] Last Admin: 12/05/21 10:39 Dose: 20 mg Documented By: LYLA Folic Acid (Folic Acid 1 Mg Tablet) 1 mg PO DAILY [facility] Last Admin: 12/05/21 10:38 Dose: 1 mg Documented By: LYLA Levofloxacin (Levaquin) 750 mg in 150 mls @ 100 mls/hr IV Q24H [facility] Last Infusion: 12/04/21 23:05 Dose: 0 mls/hr Documented By: SAE Magnesium Oxide (Magnesium Oxide 400 Mg Tablet) 400 mg PO BIDPC [facility] Last Admin: 08/15/22 10:38 Dose: 400 mg Documented By: LYLA Methylprednisolone Sodium Succinate (Methylprednisolone Sod Succ 40 Mg/Ml Vial) 40 mg IVPUSH BID [facility] Last Admin: 12/05/21 10:40 Dose: 40 mg Documented By: LYLA Multivitamins/Vitamin C (Multivitamin Tablet) 1 tab PO DAILY [facility] Last Admin: 12/05/21 10:38 Dose: 1 tab Documented By: LYLA Nicotine (Nicotine 21 Mg Patch.Td24) 21 mg TRANSDERMA DAILY [facility] Last Admin: 12/05/21 10:41 Dose: 21 mg Documented By: LYLA Omeprazole (Omeprazole 40 Mg Capsule.Dr) 40 mg PO DAILY@0630 [facility] Last Admin: 12/05/21 06:23 Dose: 40 mg Documented By: MARGARET Oxycodone HCl (Oxycodone Hcl Immed Release 5 Mg Tablet) 5 mg PO Q6H PRN PRN Reason: Pain, Mild (Pain Scale 1-3) Last Admin: 12/05/21 10:39 Dose: 5 mg Documented By: LYLA Pharmacy Consult (Consult Rx Perform Med Rec) 1 each MISCELLANE ONCE PRN PRN Reason: Consult order Pharmacy Consult (Consult Rx Etoh Phenob Im/Po) 1 each MISCELLANE ONCE PRN; Protocol PRN Reason: Consult order Phenobarbital (Phenobarbital 15 Mg Tablet) 15 mg PO DAILY [facility] Stop: 12/06/21 09:01 Last Admin: 12/05/21 10:40 Dose: 15 mg Documented By: LYLA Sodium Chloride (0.9 % Sodium Chloride Flush 3 Ml Syringe) 3 ml IVFLUSH QSHIFT [facility] Last Admin: 12/05/21 10:42 Dose: 3 ml Documented By: LYLA Thiamine HCl (Thiamine Hcl 100 Mg Tablet) 100 mg PO DAILY [facility] Last Admin: 12/05/21 10:39 Dose: 100 mg Documented By: LYLA Labs CBC & Chem 7: 12/01/21 03:48 12/02/21 06:42 Microbiology Microbiology Results: Microbiology 12/03/21 15:33 Blood Culture - Preliminary Blood - Venous No growth after 24 hours. 12/03/21 15:33 Blood Culture - Preliminary Blood - Venous No growth after 24 hours. Assessment and Plan (1) Bacteremia: Status: Acute (2) Regional wall motion abnormality of heart: Status: Acute (3) Sepsis: Status: Acute Plan Patient was admitted for sepsis secondary to pneumonia-started on IV antibiotics seems to be improved significantly ,in addition blood cultures showed had also bacteremia:? Seen by infectious disease recommended to continue antibiotic for 1 week, please complete the course, please repeat chest imaging in 3-4 weeks to see resolution of pneumonia outpatient. Patient has hepatitis-C serology positive, viral load ordered:? Follow-up outpatient with Infectious Disease Dr. Segura for further management. Elevated liver enzymes possibly related to alcohol, also hepatitis-C serology also positive above, hepatitis C viral load ordered and pending-patient was strongly advised to added abstain from alcohol.? Follow-up with Infectious Disease out patiently for hepatitis C and B serology positive. Monitor LFT outpatient with PCP. Hypomagnesemia and hypokalemia repleted and resolved. Patient had abnormal echo, but cardiac enzymes seems fine:? Seen by Cardiology-recommended outpatient cardiac testing . Cardio may arrange their own appointment. Patient seen by care team Patient wants to go to alcoholic center from here,calling alcoholic rehab. Quality Stroke Does the patient have a stroke diagnosis?: No VTE Prior VTE?: No VTE Risk Level:: Medical - moderate - high VTE Device Contraindication: N/A - Device Ordered VTE Drug Contraindication: N/A - Med Ordered
[2021-12-05] MEDS: levoFLOXacin 750 MG TABLET PO (18:22)
[2021-12-05] MEDS: Enoxaparin Sodium 40 MG/0.4 ML SYRINGE SUBCUT (18:23)
[2021-12-06] VITALS: BP 136/65; PULSE 82; RESP 17; TEMP 36.5; O2SAT 97
[2021-12-06 07:00] VITALS: BP 146/67; PULSE 87; RESP 20; TEMP 36.7; O2SAT 94
[2021-12-06] MEDS: Thiamine HCL 100 MG TABLET PO (09:10)
[2021-12-06] MEDS: Multivitamin TABLET 1 TAB PO (09:10)
[2021-12-06] MEDS: Folic Acid 1 MG TABLET PO (09:10)
[2021-12-06] MEDS: Magnesium Oxide 400 MG TABLET PO (09:10)
[2021-12-06] MEDS: Aspirin Enteric Coated 81 MG TABLET.DR PO (09:10)
[2021-12-06] MEDS: Famotidine 20 MG TABLET PO (09:10)
[2021-12-06] MEDS: methylPREDNISolone Sod Succ 40 MG/ML VIAL IVPUSH (09:10)
[2021-12-06] MEDS: PHENobarbitaL 15 MG TABLET PO (09:11)
[2021-12-06] MEDS: oxyCODONE HCl Immed Release 5 MG TABLET PO (09:11)
[2021-12-06] MEDS: 0.9 % Sodium Chloride Flush 3 ML SYRINGE IVFLUSH (09:11)
[2021-12-06] MEDS: Nicotine 21 MG PATCH.TD24 TRANSDERMA (09:14)
[2021-12-06] MEDS: Omeprazole 40 MG CAPSULE.DR PO (09:14)
--- NOTE | 2021-12-06 10:44 | HO.ADDICTCON ---
History of Present Illness Date of Service: 12/05/2021 Chief Complaint: Sepsis/ pneumonia Reason for Consult: Alcohol use disorder Requesting physician: Hortensia Fontenot Discussed with referring provider: Yes Sources of Information: patient interviewed and chart reviewed HPI Narrative: Patient is a 65 year old female with alcohol use disorder who was medically admitted with pneumonia and treated for ETOH withdrawal as well. Consult requested as patient and family had expressed desire to discharge patient to a treatment facility from [facility]. patient seen in room 446 with daughters present during interview. She reports no treatment history, including medications for alcohol use. Reviewed options and provided with list of facilities for family to call with patient. This singer songwriter also called [facility] and started intake and referral process for patient Patient has completed acute withdrawal treatment so does not qualify for [facility] level of care. Review of Systems Constitutional: Reports as per HPI and Reports no additional constitutional complaints Diagnostics Vital Signs (24Hr): Vital Signs - 24 hr 12/05/21 11:33 12/05/21 11:44 12/05/21 15:11 Temperature 98.1 F 98.5 F Pulse Rate 87 98 93 Respiratory Rate 16 20 18 Blood Pressure 143/67 H 141/63 H Pulse Oximetry 96 98 Oxygen Delivery Method Room Air Room Air 12/05/21 19:31 12/06/21 00:00 12/06/21 07:00 Temperature 98.2 F 97.7 F 98.0 F Pulse Rate 81 82 87 Respiratory Rate 17 17 20 Blood Pressure 145/65 H 136/65 146/67 H Pulse Oximetry 98 97 94 Oxygen Delivery Method Room Air Room Air Room Air BMI result Body Mass Index 19.8 Labs Results: 12/01/21 03:48 12/02/21 06:42 Labs: Laboratory Results - last 48 hr 12/04/21 11:52 Troponin I High Sens < 3.5 Imaging Radiology Impressions: ITS Impressions Chest X-Ray 11/30/21 13:55 IMPRESSION: Right upper lobe pneumonia. Abdomen Ultrasound 11/30/21 18:42 IMPRESSION: 1. Normal hepatic echotexture. No evidence of steatosis or morphologic features of advanced cirrhosis. 2. No suspicious liver lesions. 3. No significant biliary ductal dilation. 4. Unremarkable appearance of the pancreas, spleen, and both kidneys. 5. Contracted/incompletely distended thick-walled gallbladder. No evidence of cholelithiasis or specific sonographic findings of acute cholecystitis. Mental Status Exam Mental Status Exam Patient Appearance: Well Grooomed and Appropriate Patient Orientation: Person, Place, Time and Situation Level of Consciousness: Awake and Appropriate Patient Behavior: Appropriate and Cooperative Mood Description: Calm and Appropriate Affect Description: Calm Speech Pattern: Clear Thought Process: Goal Oriented Judgement: Good Medications Medications Current Medications Albuterol/Ipratropium (Albuterol/Iprat 2.5/0.5mg 3 Ml Ampul.Neb) 3 ml INHALE RQ4H WHILE AWAKE [facility] Last Admin: 12/06/21 07:59 Dose: Not Given Aspirin (Aspirin Enteric Coated 81 Mg Tablet.) 81 mg PO DAILY [facility] Last Admin: 12/06/21 09:10 Dose: 81 mg Benzonatate (Benzonatate 100 Mg Capsule) 100 mg PO TID PRN PRN Reason: Cough Enoxaparin Sodium (Enoxaparin Sodium 40 Mg/0.4 Ml Syringe) 40 mg SUBCUT Q24H [facility] Last Admin: 12/05/21 18:23 Dose: 40 mg Famotidine (Famotidine 20 Mg Tablet) 20 mg PO DAILY [facility] Last Admin: 12/06/21 09:10 Dose: 20 mg Folic Acid (Folic Acid 1 Mg Tablet) 1 mg PO DAILY [facility] Last Admin: 12/06/21 09:10 Dose: 1 mg Levofloxacin (Levaquin) 750 mg in 150 mls @ 100 mls/hr IV Q24H [facility] Last Admin: 12/05/21 19:02 Dose: Not Given Magnesium Oxide (Magnesium Oxide 400 Mg Tablet) 400 mg PO BIDPC [facility] Last Admin: 12/06/21 09:10 Dose: 400 mg Methylprednisolone Sodium Succinate (Methylprednisolone Sod Succ 40 Mg/Ml Vial) 40 mg IVPUSH BID [facility] Last Admin: 12/06/21 09:10 Dose: 40 mg Multivitamins/Vitamin C (Multivitamin Tablet) 1 tab PO DAILY [facility] Last Admin: 12/06/21 09:10 Dose: 1 tab Nicotine (Nicotine 21 Mg Patch.Td24) 21 mg TRANSDERMA DAILY [facility] Last Admin: 12/06/21 09:14 Dose: 21 mg Omeprazole (Omeprazole 40 Mg Capsule.) 40 mg PO DAILY@0630 [facility] Last Admin: 12/06/21 09:14 Dose: 40 mg Oxycodone HCl (Oxycodone Hcl Immed Release 5 Mg Tablet) 5 mg PO Q6H PRN PRN Reason: Pain, Mild (Pain Scale 1-3) Last Admin: 12/06/21 09:11 Dose: 5 mg Pharmacy Consult (Consult Rx Perform Med Rec) 1 each MISCELLANE ONCE PRN PRN Reason: Consult order Pharmacy Consult (Consult Rx Etoh Phenob Im/Po) 1 each MISCELLANE ONCE PRN; Protocol PRN Reason: Consult order Sodium Chloride (0.9 % Sodium Chloride Flush 3 Ml Syringe) 3 ml IVFLUSH QSHIFT [facility] Last Admin: 12/06/21 09:11 Dose: 3 ml Thiamine HCl (Thiamine Hcl 100 Mg Tablet) 100 mg PO DAILY [facility] Last Admin: 12/06/21 09:10 Dose: 100 mg Allergies Allergies Allergy/AdvReac Type Severity Reaction Status Date / Time Penicillins [PCN] Allergy Severe ANAPHYLAXIS Verified 11/30/21 13:37 penicillin V Allergy Unknown anaphylaxis Verified 11/30/21 13:37 Assessment & Plan Assessment & Plan (1) Alcohol use disorder, moderate, dependence: Status: Acute Code(s): F10.20 - Alcohol dependence, uncomplicated Assessment and Plan: referall and medical records sent to [facility]--awaiting decision on admission Family following up on referrals Discharging today I spent __50____ minutes with the patient and/or on the patient floor today, greater than?50% of which was spent counseling/coordinating care. PMFSH Past Medical History Medical History Excessive drinking alcohol Smoking Family History Family history: reviewed and not pertinent Social History Social History Household Members: Children Housing: House Do you presently have visiting nurse or other home services: No Patient Tobacco Use Status: Current everyday Tobacco user Tobacco use type: Cigarette e-Cigarette/Vaping Use: Never Used Second Hand Smoke Exposure: Yes service: No Current occupational status: retired
[2021-12-06 10:46] VITALS: BP 150/66; PULSE 84; RESP 20; TEMP 36.6; O2SAT 98
--- NOTE | 2021-12-06 12:37 | MHC.CM.PN ---
pt to be dcd to [facility] to transport
--- NOTE | 2021-12-06 12:39 | PC.NURSE ---
Alert and oriented. Medicated for pain per MAR with good effect. VSS, afebrile, no acute resp. distress noted. New order to discharge patient home, daughter will transport to rehab facility. Went over discharge instructions, follow up apt and medication administrations with patient and daughter. Verbalized understanding back. patient ambulated to the lobby, left via car with daughter.
[2021-12-06 18:33] LABS: Legionella Ag Urine Not Detected (Not Detected)
[2021-12-06 21:16] LABS: HCV Log PCR 7.66 Log IU/mL (NOT DETECTED)
[2021-12-11 13:01] LABS: Strep Pneumo Ag urine Detected
== END 2021-12-06 12:43 | DRG 194 ==
LOC: HO.ED 18:48 → HO.EDOVER 18:52 → HO.IMC 12-02 07:22
PROVIDERS: Nurse Practitioner Family; Admitting Provider Internal Medicine; Emergency Provider Emergency Medicine; PCP Clinical Nurse Specialist Psychiatric/Mental Health, Adult; Visit Provider Internal Medicine
DX: J18.9 Pneumonia, unspecified organism (principal); J44.0 Chronic obstructive pulmonary disease with (acute) lower respiratory infection; J44.1 Chronic obstructive pulmonary disease with (acute) exacerbation; F17.210 Nicotine dependence, cigarettes, uncomplicated; B19.20 Unspecified viral hepatitis C without hepatic coma; F10.20 Alcohol dependence, uncomplicated; E87.6 Hypokalemia; E83.42 Hypomagnesemia; Z20.822 Contact with and (suspected) exposure to COVID-19; Z88.0 Allergy status to penicillin; Z79.899 Other long term (current) drug therapy
CPT/HCPCS: 0241U; 36415; 71046; 76700; 80048; 80053; 80061; 80076; 81001; 81003; 83605; 83735; 84484; 85025; 85027; 86704; 86705; 86706; 86709; 86803; 87040; 87070; 87077; 87186; 87205; 87340; 87449; 87522; 87899; 90677; 93005; 93306; 94640; 97161; 99285; J1650; J1885; J1956; J2560; J2920; J2930; J3475

== ENCOUNTER → 2022-01-04 15:04 | Outpatient (BNVA) | payer OTHER, SELFPAY | PROVIDERS: PCP Clinical Nurse Specialist Psychiatric/Mental Health, Adult; Visit Provider Nurse Practitioner Family | DX: J18.9 Pneumonia, unspecified organism (principal); R78.81 Bacteremia; R93.1 Abnormal findings on diagnostic imaging of heart and coronary circulation; F10.20 Alcohol dependence, uncomplicated | CPT/HCPCS: 99212 ==

== ENCOUNTER → 2022-06-29 09:51 | Outpatient (REF) | payer OTHER, SELFPAY ==
--- NOTE | ~2022-06-29 | NM_ITS ---
Exercise Myocardial perfusion study Indication: Atherosclerotic heart disease to evaluate for myocardial ischemia Technique: The patient was brought in for an exercise perfusion study on 06/29/2022. Patient performed exercise as per Gamaliel protocol and was injected 25 mCi of sestamibi was given intravenously one target HR was achieved. Images were obtained using the SPECT gamma camera interlaced with the gating device. Images were obtained in supine position. Resting perfusion study was performed on 07/05/2022. Patient was administered 25 mCi of sestamibi intravenously at rest. Images were then obtained in supine position. Images obtained with and without CT attenuation. Total DLP 70 mGy-cm. Images were processed with the software and compared side to side in short axis, horizontal long axis and vertical long axis views. Findings: The stress perfusion study showed both attenuated as well as non attenuated corrected images show normal uptake of radiotracer in all segments of LV myocardium. The gated study shows reduced LV systolic function with calculated LVEF of 33%, although visually this appears to be erroneous. LV cavity is normal in size. The gated study shows normal systolic wall thickening and contraction of all segments. There is no transient ischemic dilation. Resting study shows no change in perfusion pattern compared to stress perfusion study. Gating at rest reveals normal systolic wall motion with ejection fraction at 41%. The findings are consistent with normal myocardial perfusion. NM/NM cardiolite stress test Impression: 1. Normal myocardial perfusion 2. Gated LVEF is 33% by gated matter although visually appears to be within normal limits. Consider echocardiogram 3. Transient ischemic dilatation not present Stress EKG is negative for ischemia
--- NOTE | 2022-06-29 09:53 | CA_ITS ---
Acquisition Time: 2022-06-29 10:09:03 Total Exercise Time: 00:05:02 Test Indications: ABN ECHO Medications: SEE H Protocol: ALESSIO Max HR: 153 BPM 100% of Pred: 153 BPM Max BP: 180/080 mmHG Max Work Load: 7.0 METS Exercise stress test with exercise of 5 min and 2 sec of Alessio protocol with fatigue achieving 100% MPHR without angial symptoms, without arrythmias, with normotensive response to exercise without EKG changes meeting criteria for ischemia. Nuclear images pending. Test reviewed with Dr. Cassidy. Referred By: Km Cassidy Overread By: YUE CERVANTES
== END ==
LOC: HO.CARD 09:51
PROVIDERS: Visit Provider Internal Medicine
DX: I25.10 Atherosclerotic heart disease of native coronary artery without angina pectoris (principal); R93.1 Abnormal findings on diagnostic imaging of heart and coronary circulation
CPT/HCPCS: 78452; 93017; A9500

== ENCOUNTER → 2022-08-15 14:47 | Outpatient (BNVA) | payer OTHER, SELFPAY | PROVIDERS: Visit Provider Nurse Practitioner Family | DX: R93.1 Abnormal findings on diagnostic imaging of heart and coronary circulation (principal); F10.20 Alcohol dependence, uncomplicated; F17.210 Nicotine dependence, cigarettes, uncomplicated | CPT/HCPCS: 99212 ==

== ENCOUNTER → 2022-09-07 10:42 | Outpatient (REF) | payer OTHER, SELFPAY ==
--- NOTE | 2022-09-07 10:46 | CA_ITS ---
Transthoracic Echocardiogram Patient (Last, First, Middle): Marjan Vasquez, Gender: Female Date of : 1955 Age: 66 Procedure Date: 09/07/2022 Procedure Type: Transthoracic Echocardiogram Location: OP Height: 157.48 cm Weight: 52.16 kg BSA: 1.51 m2 Heart Rate: 87 bpm BP: 145 / 70 mmHg [employer] Conservationist: SERENA Referring MD: Meka Timmons [facility] Symptoms: R93.1 - Abnormal findings on diagnostic imaging of heart and coronary ci... Study Quality: Adequate ECG Rhythm: Sinus Conclusions: - The left ventricular systolic function is normal. The calculated ejection fraction is 60% by biplane method. - Possible basal inferoseptal/inferior hypokinesis. Findings Left Ventricle Normal left ventricular cavity size. There is normal left ventricular wall thickness. The left ventricular systolic function is normal. The calculated ejection fraction is 60% by biplane method. Possible basal inferoseptal/inferior hypokinesis. LV peak GLS -17.4%. Prior Study Comparison No significant change compared to prior study dated: 12/02/2021. Measurements 2D Linear Measurements IVSd: 0.67 0.6-0.9/0.6-1.0 cm LVIDd: 3.79 3.9-5.3/4.2-5.9 cm LVIDd Index: 2.51 2.4-3.2/2.2-3.1 cm/m2 LVIDs: 2.72 2.0-3.6 cm LVPWd: 0.81 0.7-1.1 cm Ao Root: 3.00 2.1-3.5 cm LA Diam: 2.30 2.7-3.8/3.0-4.0 cm LAIDs Index: 1.52 1.5-2.3 cm/m2 LV Mass: 95.51 67-162/88-224 g LV Mass Index: 63.25 43-95/49-115 g/m2 LVOT Diam: 1.70 3.0+(-)1.3 cm 2D Systolic Function EF 4C: 60.60 >55% EF 2C: 59.90 >55% EF BiP: 60.20 >55% LVOT LVOT Pk Bassam: 0.80 LVOT Mn Bassam: 0.58 LVOT VTI: 0.16 LVOT Pk Grad: 3.00 LVOT Mn Grad: 2.00 LVOT Diam: 1.70 LVOT Area: 2.27 Tricuspid Valve RA Press: 3.00 Great Vessels Aorta Ao Root-2D: 3.00 2.0-3.7 cm Updated in Other Vendor System with Status of Final Km Cassidy MD electronically signed on 09/07/2022 1:23:11 PM with status of Final
== END ==
LOC: HO.CARD 10:42
PROVIDERS: Visit Provider Nurse Practitioner Family
DX: R93.1 Abnormal findings on diagnostic imaging of heart and coronary circulation (principal)
CPT/HCPCS: 93308; 93356

== ENCOUNTER 2024-08-13 11:24 | Outpatient (AMB) | payer MEDICARE, SELFPAY ==
--- NOTE | 2024-08-13 11:26 | AM.OFFWIN_ITS ---
Intake Vital Signs 3 08/13/24 11:29 Weight 112 lb BP 136/90 H Blood Pressure Location Rt brachial Position Sitting Pulse 134 H Pulse Source Pulse Oximeter Pulse Oximetry (%) 98 Oxygen Delivery Method Room Air Intake Visit Reasons: EP-lt leg cut, swollen & pain Intake Note: Patient here for left leg cut, welling and pain that has been present for about 3 weeks. Patient Tobacco Use Status: Current everyday Tobacco user Allergies Penicillins [PCN] Allergy (Severe, Verified 08/13/24 11:30) ANAPHYLAXIS penicillin V Allergy (Unknown, Verified 08/13/24 11:30) anaphylaxis Medication List - Last Reconciled 08/13/24 by Carly Javier MD budesonide-formoterol 80-4.5 mcg/actuation (Symbicort) inhalation multivitamin 1 tab PO DAILY nicotine 1 patch transdermal DAILY Do you need a note to return to daycare/school/sports/work: No HPI EP-lt leg cut, swollen & pain 2 HPI0 Details 68-year-old female came in today to be e valuated for left leg wound and redness Patient hit edge of door 3 weeks ago she has been trying to heal it herself by putting local ointment But it is not getting better so she was brought in by her daughter Patient is a smoker She has a history of lupus but taking no medications She says that her kidney and liver functions are within normal limit She has an appointment coming up with primary care soon for physical exam There is no fever but she did feel hot and cold yesterday On examination she has linear wound at her left varghese With some redness in the surrounding area but no fluctuation and no discharge Tetanus vaccine was given She is allergic to penicillin I am treating her with doxycycline and Bactrim for a week Patient is to follow-up with PCP within that time. If symptoms gets worse she is to go to emergency room [facility] Medical History Excessive drinking alcohol Smoking Social History Household Members: Children Housing: House Do you presently have visiting nurse or other home services: No Patient Tobacco Use Status: Current everyday Tobacco user Tobacco use type: Cigarette e-Cigarette/Vaping Use: Never Used Second Hand Smoke Exposure: Yes service: No Current occupational status: retired Review of Systems Const All systems reviewed & are unremarkable except as noted in HPI and below Physical Exam Vital Signs: Last Vital Signs Pulse 134 H 08/13/24 11:29 BP 136/90 H 08/13/24 11:29 Pulse Ox 98 08/13/24 11:29 Oxygen Delivery Method Room Air 08/13/24 11:29 Const General: no acute distress Orientation/consciousness: patient oriented x3 Eyes General: appearance normal, both eyes and all related structures Resp Effort & Inspection: normal respiratory effort and able to speak in complete sentences Neuro General: patient oriented x3 Extrem Upper/lower leg/hip images: 2 1. Site of wound and redness, no fluctuation no discharge noticed, neurovascular intact, knee joint and ankle joint mobile without pain, no pain with calf palpation Psych Mental Status: mental status grossly normal Immunizations Boostrix Tdap 2.5 Lf unit-8 mcg-5 Lf/0.5 mL intramuscular syringe Performing Provider: Carly Javier MD Performing Location: [facility] Administered by: DWAYNE Bustamante on 08/13/24 11:57 2 Dose Route Admin Location Dispensed Lot Number Expiration Date [facility] Outreach Team Member 0.5 mL IM Left Deltoid 0.5 mL [id number] 10/31/26 [id number] [id number] 2 VIS Given Date VIS Provided VIS Publication Date 08/13/24 Single Vaccine 20 Eligibility Eligibility Date Funding Source Not [facility] Eligible 08/13/24 Private diphth,pertus(acell),tetanus 2.5 Lf unit-8 mcg-5 Lf/0.5 mL IM susp Performing Provider: Carly Javier MD Performing Location: [facility] Documented (not given) by: DWAYNE Bustamante on 08/13/24 11:57 2 Dose Route Admin Location Dispensed Lot Number Expiration Date [place] Outreach Team Member 0.5 mL IM mL 2 VIS Given Date VIS Provided VIS Publication Date Single Vaccine 20 Eligibility Eligibility Date Funding Source Assessment & Plan Assessment & Plan (1) Traumatic open wound of lower leg with infection: Code(s): S81.809A - Unspecified open wound, unspecified lower leg, initial encounter; L08.9 - Local infection of the skin and subcutaneous tissue, unspecified Qualifiers: Encounter type: initial encounter Laterality: left Qualified Code(s): S81.802A - Unspecified open wound, left lower leg, initial encounter; L08.9 - Local infection of the skin and subcutaneous tissue, unspecified Plan 68-year-old female came in today to be evaluated for left leg wound and redness Patient hit edge of door 3 weeks ago she has been trying to heal it herself by putting local ointment But it is not getting better so she was brought in by her daughter Patient is a smoker She has a history of lupus but taking no medications She says that her kidney and liver functions are within normal limit She has an appointment coming up with primary care soon for physical exam There is no fever but she did feel hot and cold yesterday On examination she has linear wound at her left varghese With some redness in the surrounding area but no fluctuation and no discharge Tetanus vaccine was given She is allergic to penicillin I am treating her with doxycycline and Bactrim for a week Wound was cleaned with saline and bandage was applied, patient was instructed to keep it covered since she has dogs Patient is to follow-up with PCP within that time. If symptoms gets worse she is to go to emergency room Orders: Orders 2 TDaP Immunization Today Z23 - Encounter for immunization Medications: New 2 sulfamethoxazole-trimethoprim 800-160 mg (Bactrim DS) 1 tab PO BID 14 tabs 0RF 7 days doxycycline hyclate 100 mg PO BID 14 caps 0RF 7 days diphth,pertus(acell),tetanus 0.5 mL IM ONCE 0.5 mL 0RF Z23 - Encounter for immunization Coding Level of Care Code Est Pt Level 4 (16466) Diagnoses Traumatic open wound of left lower leg with infection, initial encounter S81.802A; L08.9 Encounter type: initial encounter Laterality: left
[2024-08-13 11:29] VITALS: BP 136/90; PULSE 134; O2SAT 98
--- OUTSIDE RECORDS SUMMARY | 2024-08-13 13:45 | XMS_ITS | Clinical Summary ---
Author Organization [employer] Address [address] [place] [address] Care Team Providers Care Welfare Service Aide Name Role Phone Alexandra Ramirez Unavailable Unavailable Loretta Stock DO Primary Care Provider [phone] Allergies Active Allergy Reactions Criticality Noted Date Comments Penicillin G Anaphylaxis High 10/18/2022 Other reaction(s): anaphalaxis Medications albuterol 108 (90 Base) MCG/ACT inhalerIndicatio ns:Chronic bronchitis with acute exacerbation (CMS/HCC) INHALE 2 PUFFS 4 TIMES A DAY NEEDED FOR WHEEZING 18 g 2 3 Active ipratropium-albu terol (Duo-Neb) 0.5-2.5 mg/3 mL nebulizer solutionIndicati ons:Community acquired pneumonia, unspecified laterality,Histo ry of pneumonia,Chroni c obstructive pulmonary disease with acute exacerbation (CMS/HCC) Take 3 mL by nebulization if needed in the morning, at noon, in the evening, and at bedtime for wheezing or shortness of breath. 360 mL 3 Active guaiFENesin (Mucinex) 600 MG 12 hr tabletIndication s:Community acquired pneumonia, unspecified laterality,Histo ry of pneumonia,Chroni c obstructive pulmonary disease with acute exacerbation (CMS/HCC) Do not crush, chew, or split. One tab PO BID with a full glass of water 20 tablet 3 Active budesonide-formo terol (Symbicort) 80-4.5 MCG/ACT inhalerIndicatio ns:Asthma Inhale 2 puffs in the morning and at bedtime. May also inhale 1-2 puffs every 6 (six) hours if needed (shortness of breath). Max 12 puffs/day. Rinse mouth with water after use. Do not swallow.. 3 each 3 4 025 Active ibuprofen 600 MG tabletIndication s:History of rib fracture Take 1 tablet (600 mg) by mouth every 8 (eight) hours if needed for moderate pain. 270 tablet 2 4 025 Active Active Problems Problem Noted Date Diagnosed Date Closed fracture of multiple ribs of right side with routine healing 09/11/2023 Overview (09/11/2023): Images from the original note were not included. Completed Oxycodone and Robaxin Completed Oxycodone and Robaxin for pain. Continues Ibuprofen 600 mg - taking BID. Advised can take up to 4 times per day if needed. Discussed pain patch - insurance didn't cover. Discussed SalonPas OTC pain patch. Pt will trial. Discussed when to call clinic, when to go to ER. Advised to follow up with PCP in 1-2 months. Pulmonary nodules 09/11/2023 Overview (09/11/2023): Images from the original note were not included. Smoker, 1/2ppd x 30 years. Due for repeat CT scan 08/2024. TIA (transient ischemic attack) 04/30/2023 04/30/2023 Pseudophakia of both eyes 04/30/2023 Glaucoma suspect of both eyes 04/30/2023 COPD (chronic obstructive pulmonary disease) Overview (09/11/2023): Taking Symbicort PRN instead of BID. Advised to take BID to help improve symptoms. Continue incentive spirometry as directed by ED staff. Assessment & Plan (03/20/2023 7:26 PM EST): Pt speaking in full sentences but does sound somewhat breathy, states has not been smoking much, I clip the cigarettes . States (see encounter in chart at health center today) they heard crackles on the right but I am absolutely not going to the ER, I checked the wait and its four hours and I will probably get sicker there or RSV or something Pt states sees Dr. Thomas pulm and has some tests he wants her to get done to check her lungs but hasn't been feeling well enough to go out and do them. See other diagnoses this visit for plan. History of pneumonia 03/20/2023 Assessment & Plan (03/20/2023 7:36 PM EST): Reports she is not up to date on her vaccines - when this illness episode resolves, strongly recommend getting all respiratory vaccines up to date and following up with her pulm for the testing he ordered (per pt Dr. Guzman) without delay. Avoid crowds, avoid ANY smoking, get adequate rate and stay well hydrated with water and optimize nutrition (note current BMI in low normal range), daily multivitamin. Pt agrees to plan. Resolved Problems Problem Noted Date Diagnosed Date Resolved Date Community acquired pneumonia 03/20/2023 04/27/2024 Assessment & Plan (03/20/2023 7:33 PM EST): Suspected based on provider's brief assessment today at health center and pt hx of same and current symptoms, will treat presumptively with corticosteroid, nebulizer treatments (states her friend has nebulizer she can use), mucinex bid with full glass of water and doxycycline. Pt agrees that if she feels any worsening of symtpoms despite starting these medications tonight and avoiding ANY smoking while ill, she will call 911 or go directly to ER for evaluation. States had diagnosis of COPD in past as well as treatment in hospital for pneumonia once before and wants to avoid having to go to hospital. Encouraged to followup for in office lung sounds evaluation with PCP or her pulm at completion of treatment, or in ER if no improvement during treatment, pt agrees to plan. Encounters Date Type Department Care Team Description 06/09/2024 11:40 AM EST Telemedicine [facility] MEDICAL [address] [place] [address] [facility] ([facility]) (Primary Dx); Acute non-recurrent sinusitis, unspecified location from Last 3 Months Immunizations Name Administration Dates Next Due Influenza, Injectable, MDCK, w/preservative 02/22 Pneumococcal Conjugate PCV 20 12/05/2021 Tdap 08/14/2012 Family History Medical History Relation Name Comments Dementia Mother Glaucoma Mother Cervical cancer Sister 2 Relation Name Status Comments Brother 1 Alive Brother 2 Alive Father Alive Mother Alive Sister 1 Alive Sister 2 Social History Tobacco Use Types Packs/Day Years Used Date Smoking Tobacco: Every Day Cigarettes Passive Smoke Exposure: Current Smokeless Tobacco: Never Tobacco Cessation:Ready to Q uit: No; Counseling Given: No Alcohol Use Standard Drinks/Week Comments Yes 0 (1 standard drink = 0.6 oz pur e alcohol) At Night Time Alcohol Answer Date Recorded How often do you have a drink containing alcohol ? 0 03/14/2024 How many drinks containing a lcohol do you have on a typical day when you are drinking? 0 03/14/2024 How often do you have six or more drinks on one occasion? 0 03/14/2024 Housing Stability Answer Date Recorded What is your housing situation today? I have maria c saha 09/11/[address] you li ve. Do you have problems with any of the following? None of the above 09/11/2023 Food Insecurity Answer Date Recorded Within the past 12 months, y ou worried that your food would run out before you got money to buy more: Never True 09/11/2023 Within the past 12 months,th e food you bought just didn't last and you didn't have enough money to get more: Never True Transportation Answer Date Recorded In the past 12 months, has l ack of transportation kept you from medical appts, meetings, work or from getting things needed for daily living? No 09/11/2023 Intimate Partner Violence Answer Date R ecorded Within the last year, have y ou been afraid of your partner or ex-partner? 2 03/14/2024 Within the last year, have y ou been humiliated or emotionally abused in other ways by your partner or ex-partner? 2 Within the last year, have y ou been kicked, hit, slapped, or otherwise physically hurt by your partner or ex-partner? 2 03/14/2024 Within the last year, have y ou been raped or forced to have any kind of sexual activity by your partner or ex-partner? 2 03/14/2024 Utilities Answer Date Recorded In the past 12 months, has t he electric, gas, oil or water company threatened to shut off services in your home? No 09/11/2023 Depression Answer Date Recorded Patient Health Questionnaire-2 Score 0 09/11/2023 Internet Access Answer Date Recorded Internet Access Q1 Yes 03/14/2024 Internet Access Q2 I do not want or need it 02/22 Comments No Sex and Gender Information Value Date Recorded Sex Assigned at Female 10/16/2022 8:38 AM EDT Legal Sex Female 8:38 PM EDT Gender Identity Female 10/16/2022 8:38 AM EDT Sexual Orientation Straight 10/16/2022 8: 38 AM EDT Occupation Industry Job Start Date Job End Date Not on file Not on file Not on file Not on file Last Filed Vital Signs Vital Sign Reading Time Taken Comments Blood Pressure 130/82 03/14/2024 2:48 PM EST Pulse 92 03/14/2024 2:48 PM EST Temperature 36.6 ??C (97.9 ??F) 03/14/2024 2:48 PM ES T Respiratory Rate 16 10/18/2022 2:34 PM EDT Oxygen Saturation 98% 03/14/2024 2:48 PM EST Inhaled Oxygen Concentration - - Weight 52.4 kg (115 lb 9.6 oz) 03/14/2024 2:48 P M EST Height 157.5 cm (5' 2 ) 03/14/2024 2:48 PM EST Body Mass Index 21.14 03/14/2024 2:48 PM EST Plan of Treatment Health Maintenance Due Date Last Done Comments CT Colonography 1954 Colonoscopy 1954 Colorectal Cancer Screening 1954 FIT DNA/Cologuard 1954 FIT 1954 FOBT 1954 Sigmoidoscopy 1954 Hepatitis C Screening 1972 Zoster Vaccines (1 of 2) 2004 RSV Patients and Patients Aged 60 years or older (1 - Risk 60-74 years 1-dose series) 2014 Mammogram 11/20/2018 11/20/2016 Lipid Panel 01/10/2021 01/11/2016 DTaP/Tdap/Td Vaccines (2 - T d or Tdap) 08/14/2022 08/14/2012 COVID-19 Vaccine (3 - 2024-2 5 season) 2023 09/09/2020, 08/12/2020 Influenza Vaccine (#1) 2023 03/14/2024 Depression Screening 09/10/2024 09/11/2023, 09/11/2023 SDOH Screening 09/10/2024 09/11/2023 Alcohol/Substance Use Screening 03/14/2025 03/14/2024 Tobacco Screening 06/09/2025 06/09/2024 Pneumococcal Vaccine: 50+ Years Completed 12/05/2021 HIB Vaccines Aged Out No longer eligi ble based on patient's age to complete this topic HPV Vaccines Aged Out No longer eligi ble based on patient's age to complete this topic Hepatitis A Vaccines Aged Out No long er eligible based on patient's age to complete this topic Hepatitis B Vaccines Aged Out No long er eligible based on patient's age to complete this topic IPV Vaccines Aged Out No longer eligi ble based on patient's age to complete this topic Meningococcal Vaccine Aged Out No peter phyllis eligible based on patient's age to complete this topic RSV under 20 months Aged Out No longe r eligible based on patient's age to complete this topic Rotavirus Vaccines Aged Out No longer eligible based on patient's age to complete this topic Procedures Procedure Name Priority Date/Time Associated Diagnosis Comments MAMMOGRAPHY Routine 11/20/2016 LIPID PANEL, STANDARD Routine 01/11/2016 from Last 3 Months or Most Recently Relevant to Health Maintenance Results * Mammography (11/20/2016) Mammogram BI-RADS 1 Negative Anatomical Region Laterality Modality Other Historical Provider HEALTH MAINTENANCE Final Result * (ABNORMAL) Lipid Panel, Standard (01/11/2016) Triglycerides 243(A) 40 - 160 mg/dL Cholesterol 169 0 - 200 mg/dL HDL Cholesterol 52 35 - 70 mg/dL LDL Cholesterol 68 mg/dL Blood Venous blood specimen / Unknown Historical Provider LAB BLOOD ORDERABLES Namrata l Result from Last 3 Months or Most Recently Relevant to Health Maintenance Insurance [facility] [employer] Care Teams Welfare Service Aide Relationship Specialty Start Date End Date Loretta Stock DO [address] [place] [address] [place] [address] PCP - General Family Medicine 01/17/24 Alexandra Ramirez Community Health Worker 08/28/22
== END 2024-08-13 12:06 | disposition home or self-care (01) ==
PROVIDERS: Visit Provider Internal Medicine
DX: S81.802A Unspecified open wound, left lower leg, initial encounter (principal); L08.9 Local infection of the skin and subcutaneous tissue, unspecified

== ENCOUNTER → 2024-08-13 11:24 | Outpatient (BNVA) | payer MEDICARE, SELFPAY | PROVIDERS: Visit Provider Internal Medicine | DX: Z23 Encounter for immunization (principal); S81.802A Unspecified open wound, left lower leg, initial encounter; L08.9 Local infection of the skin and subcutaneous tissue, unspecified | CPT/HCPCS: 90471; 90715; 99212 ==

== ENCOUNTER 2024-08-23 23:17 | Emergency (ER) | payer MEDICARE, SELFPAY ==
--- NOTE | ~2024-08-23 | XR_ITS ---
CLINICAL HISTORY: chest tightness 1 view chest x-ray Comparison: CR/SR - XR CHEST 2V - 11/30/21 13:54 EDT Findings: No consolidation or effusion. Heart size is normal. No acute fracture. IMPRESSION: 1. No acute findings. This document has been electronically signed by: Le Graff MD on 08/24/2024 00:15:44
[2024-08-23 23:24] VITALS: BP 117/56; BP 122/70; PULSE 100; PULSE 101; RESP 18; TEMP 36.6; O2SAT 90; O2SAT 99; BMI 21.0
--- NOTE | 2024-08-23 23:31 | ECG_ITS ---
Test Reason : CHEST PAIN Blood Pressure : */* mmHG Vent. Rate : 98 BPM Atrial Rate : 98 BPM P-R Int : 180 ms QRS Dur : 80 ms QT Int : 370 ms P-R-T Axes : 79 69 71 degrees QTcB Int : 472 ms Normal sinus rhythm Normal ECG When compared with ECG of 01-Dec-2021 19:26, No significant change was found Referred By: Generic ED Physician Electronically Signed By: ROSELINE ROBERTS
[2024-08-24 00:03] LABS: MANUAL DIFF FLAG NO
[2024-08-24 00:04] LABS: Basophils Percent Auto 0.5 % (0-2); Eosinophils Percent Auto 0.5 % (0-4); Hematocrit 41.3 % (37.0-47.0); Imm Gran Abs Auto 0.02 X10*3/uL (0.00-0.03); Imm Gran Pct Auto 0.3 % (0.0-0.4); Lymphocytes Absolute Auto 1.8 X10*3/uL (1.2-4.9); Lymphocytes Percent Auto 28.5 % (20-40); Mean Corpuscular HGB Conc 36.3 g/dl (31.0-35.0); Mean Corpuscular Hemoglobin 32.5 pg (27.0-33.0); Mean Corpuscular Volume 89.4 fL (80.0-98.0); Mean Platelet Volume 9.9 fL (9.4-12.3); Monocytes Absolute Auto 0.3 X10*3/uL (0.1-1.2); Monocytes Percent Auto 5.3 % (2-11); Neutrophils Absolute Auto 4.2 x10*3/uL (2.0-8.3); Neutrophils Percent Auto 64.9 % (45-73); Platelet Count 150 X10*3/uL (160-400); Red Blood Count 4.62 X10*6/uL (4.20-5.50); Red Cell Distribution Width 11.9 % (11.0-16.0); White Blood Count 6.4 X10*3/uL (4.8-10.8)
[2024-08-24 00:05] VITALS: BP 102/53; PULSE 105; RESP 14; TEMP 36.6; O2SAT 96
--- NOTE | 2024-08-24 00:12 | ED.SOB ---
HPI - SOB/Dyspnea General Chief Complaint: Dyspnea Stated Complaint: Diff breathing due to AB & back pain Time Seen by Provider: 08/23/24 23:58 Source: patient and EMS Mode of arrival: EMS Limitations: no limitations History of Present Illness ED Provider: Dr. Claudia Singh HPI Narrative: Patient comes to the emergency room complaining of shortness of breath. Patient states that earlier today she had a sudden onset of back pain abdominal pain felt like something was wrapped around her upper abdomen and squeezing her. Patient states that she feels better but still a bit tight. Patient has history of COPD. Patient reports that recently she was taking 2 antibiotics for a dog scratching her left lower extremity. Patient states that earlier today she noted that she had petechial lesions in her right lower extremity and now the petechial rashes in both. Denies any itching swelling or pain. Related Data Home Medications ?Medication ?Instructions ?Recorded ?Confirmed multivitamin 1 tab PO DAILY 11/30/21 01/04/22 budesonide-formoterol HFA 80 inhalation 08/13/24 08/13/24 mcg-4.5 mcg/actuation aerosol inhaler (Symbicort) Previous Rx's ?Medication ?Instructions ?Recorded nicotine 21 mg/24 hr daily 1 patch transdermal DAILY #7 ea 12/06/21 transdermal patch doxycycline hyclate 100 mg capsule 100 mg PO BID 7 days #14 caps 08/13/24 sulfamethoxazole 800 1 tab PO BID 7 days #14 tabs 08/13/24 mg-trimethoprim 160 mg tablet (Bactrim DS) prednisone 50 mg tablet 50 mg PO DAILY #5 tabs 08/24/24 Allergies Allergy/AdvReac Type Severity Reaction Status Date / Time Penicillins [PCN] Allergy Severe ANAPHYLAXIS Verified 08/23/24 23:24 penicillin V Allergy Unknown anaphylaxis Verified 08/23/24 23:24 Review of Systems Review of Systems: Constitutional : No Weight loss, No Fever, No Chills, No Night Sweats, No Fatigue, No Malaise ENT/Mouth : No Hearing loss, No Ear Pain, No Nasal Congestion, No Sinus Pain, No Hoarseness, No sore throat, No Rhinorrhea, No Swallowing Difficulty Eyes: No Eye Pain, No Swelling, No Redness, No Foreign Body, No Discharge, No Vision Changes Cardiovascular : Complaining of chest tightness without any significant Chest Pain, No SOB, No Dyspnea on Exertion, No Orthopnea, No Edema, No Palpitations Respiratory : Complaining of cough, shortness of breath Gastrointestinal : No Nausea, No Vomiting, No Diarrhea, No Constipation, No abdominal Pain, No Hematochezia, No Melena Genitourinary : no irregular bleeding, No Dysuria, No Urinary Frequency, No Hematuria, No Urinary Incontinence, No Urgency, No Flank Pain, No Urinary Flow Changes, No Hesitancy Musculoskeletal : No joint pain, No Myalgias, No Joint Swelling Skin : Recuperating from an infected scratch in the distal left lower extremity, new particular rash in bilateral lower extremities Neuro : No Weakness, No Numbness, No Paresthesias, No Loss of Consciousness, No Dizziness, No Headache Psych : No Anxiety/Panic, No Depression, No SI/HI/AH/VH, No Social Issues, Heme/Lymph: No Bruising, No Bleeding,No Lymphadenopathy Endocrine : No Polyuria, No Polydipsia, No Temperature Intolerance PMFSH Past Medical History Medical History Excessive drinking alcohol Smoking Social History Social History Household Members: Children Housing: House Do you presently have visiting nurse or other home services: No Patient Tobacco Use Status: Current everyday Tobacco user Tobacco use type: Cigarette Smoked in Last 30 Days: Yes e-Cigarette/Vaping Use: Never Used Second Hand Smoke Exposure: Yes Use of substances other than those prescribed or required for medical reasons: No Do you have a plan to hurt others: No Plan service: No Current occupational status: retired Physical Exam Vital Signs: Vital Signs: Last Vital Signs Temp 97.7 F 08/24/24 01:28 Pulse 92 08/24/24 01:28 Resp 20 08/24/24 01:28 BP 132/55 L 08/24/24 01:28 Pulse Ox 98 08/24/24 01:28 O2 Del Method Room Air 08/24/24 01:28 BMI result Body Mass Index 21.0 Const: Other: Appearance: Alert. Oriented X3. No acute distress. Eyes: Pupils equal, round and reactive to light. ENT: Pharynx normal. Neck: Normal inspection. Neck supple. No lymph nodes noted. No crepitus CVS: Normal heart rate and rhythm. Pulses normal. Normal S1 and S2 Respiratory: No respiratory distress. Breath sounds normal. No Wheezing. No rales Abdomen: Soft and nontender. No rigidity. No distention. Skin: Skin warm and dry. Normal skin color. Normal skin turgor. See extremities below Extremities: No lower extremity edema. Patient has a petechial nonblanching rash in bilateral lower extremities. Neuro: Oriented X 3. No motor deficit. No sensory deficit. Moving all extremities. No slurred speech. CN 2 through 12 grossly intact Psych: calm, cooperative, normal affect Course Course Course Narrative: All of patient's labs pending Patient's vitals stable Medical Decision Making Medical Decision Making [facility] Narrative: My interpretation of labs: No significant abnormality in patient's hematology chemistry or coagulation times, normal LFTs, normal troponin, normal BNP, serology negative for influenza RSV COVID Patient was ambulated around the emergency room, oxygen saturation 96% and above with no symptoms ETOH 195, patient is clinically sober. Coherent, alert and oriented x3 Chest x-ray does not show any acute abnormality The petechial rash in patient's lower extremities are likely secondary to antibiotic use, causing leukocytoclastic vasculitis Patient will be given a dose of prednisone for home. Discussed with the patient that the rash may last weeks Differential Diagnosis Differential Diagnoses: The differential diagnosis associated with the presentation includes Admission/Observation Consideration of admission/observation: Escalation of care including admission/observation considered (Given patient's physical exam, presentation and symptoms, observation was considered) Lab Data [facility] Lab Attestation statement: I reviewed the patient's lab results. 08/23/24 23:56 08/24/24 00:23 Labs: Lab Results 08/23/24 08/24/24 08/24/24 Range/Units 23:56 00:23 00:33 WBC 6.4 (4.8-10.8) X10*3/uL RBC 4.62 D (4.20-5.50) X10*6/uL Hgb 15.0 D (12.0-16.0) g/dl Hct 41.3 D (37.0-47.0) % MCV 89.4 (80.0-98.0) fL MCH 32.5 (27.0-33.0) pg MCHC 36.3 H (31.0-35.0) g/dl RDW 11.9 (11.0-16.0) % Plt Count 150 L (160-400) X10*3/uL MPV 9.9 (9.4-12.3) fL Immature Gran % (Auto) 0.3 (0.0-0.4) % Neut % (Auto) 64.9 (45-73) % Lymph % (Auto) 28.5 (20-40) % Bryan % (Auto) 5.3 (2-11) % Eos % (Auto) 0.5 (0-4) % Baso % (Auto) 0.5 (0-2) % Lymph # (Auto) 1.8 (1.2-4.9) X10*3/uL Bryan # (Auto) 0.3 (0.1-1.2) X10*3/uL Eos # (Auto) 0.0 (0.0-0.4) X10*3/uL Baso # (Auto) 0.0 (0.0-0.2) X10*3/uL Abs Immat Gran (auto) 0.02 (0.00-0.03) X10*3/uL Absolute Neuts (auto) 4.2 (2.0-8.3) x10*3/uL Absolute Nucleated RBC 0.000 (0.0-0.012) X10*3/uL Nucleated RBC % (auto) 0.0 (0.0-0.2) /100WBC PT 10.4 L (10.9-12.4) SEC INR 0.9 (0.9-1.1) VBG pH 7.34 (7.32-7.43) VBG pCO2 43 mmHg VBG pO2 41 mmHg VBG HCO3 23 (22-26) mmol/L VBG O2 Saturation 65.0 % VBG Base Excess -1.8 mmol/L Sodium 142 (135-145) mmol/L Potassium 3.7 (3.3-5.1) mmol/L Chloride 107 (96-108) mmol/L Carbon Dioxide 22 (22-29) mmol/L Anion Gap 17 (12-20) BUN 17 H (9-16) mg/dL Creatinine 0.72 (0.5-1.4) mg/dL Estim Creat Clear Calc 58.3 Estimated GFR > 60 Random Glucose 112 (60-115) mg/dL Calcium 10.2 D (8.4-10.2) mg/dL Total Bilirubin 0.2 (0.0-1.0) mg/dL AST 25 (5-31) U/L ALT 25 (0-31) U/L Alkaline Phosphatase 90 (39-117) U/L Troponin I High Sens < 2.7 (<3.5-17.0) ng/L B-Natriuretic Peptide < 10 (<100) pg/mL Total Protein 7.0 (6.5-8.0) g/dL Albumin 4.5 (3.5-5.0) g/dL Ethyl Alcohol 195 mg/dL Influenza Type A (PCR) NEGATIVE (Negative) Influenza Type B (PCR) NEGATIVE (Negative) RSV RNA Qual (PCR) NEGATIVE (Negative) SARS-CoV-2 RNA (RT-PCR) NEGATIVE (Negative) Independent Interpretation I performed an independent interpretation of an: Plain X-Ray Radiology Impression Discussion of test interpretation with radiology: I have reviewed the radiologist's reading. Radiologist Impression: No consolidation or effusion. Heart size is normal. No acute fracture. IMPRESSION: 1. No acute findings. Critical Care Time Critical Care Time Critical Care Time: Yes Total Critical Care Time: 45 Attestation: I have personally provided critical care time. Time includes review of lab data, radiology results, discussion with consultants, and monitoring for potential decompensation. Intervention performed as documented. Discharge Plan Discharge Clinical Impression: Leukocytoclastic vasculitis, Dyspnea, Abdominal pressure Patient Disposition: Home, Self-Care Instructions: [place] (ED) Additional Instructions: Please follow-up with your primary care physician tomorrow. If you have any worsening or new symptoms, please return to the emergency room or call 911 Prescriptions: New prednisone 50 mg tablet 50 mg PO DAILY Qty: 5 0RF No Action multivitamin Tablet 1 tab PO DAILY nicotine 21 mg/24 hr patch 24 hour 1 patch transdermal DAILY Qty: 7 0RF diphth,pertus(acell),tetanus 2.5-8-5 Lf-mcg-Lf/0.5mL suspension 0.5 ml IM ONCE Qty: 0.5 0RF budesonide-formoterol [Symbicort] 80-4.5 mcg/actuation HFA aerosol inhaler inhalation sulfamethoxazole-trimethoprim [Bactrim DS] 800-160 mg tablet 1 tab PO BID 7 Days Qty: 14 0RF doxycycline hyclate 100 mg capsule 100 mg PO BID 7 Days Qty: 14 0RF Print Language: Honduran
--- NOTE | 2024-08-24 00:32 | PC.NURSE ---
Pt resting comfortably on stretcher, family at bedside. Call zayas within reach and pt understands use.
[2024-08-24 00:36] LABS: Venous Blood Gas Refer to POC result
[2024-08-24 00:38] LABS: VBG Base Excess -1.8 mmol/L; VBG HCO3 23 mmol/L (22-26); VBG pCO2 43 mmHg; VBG pH 7.34 (7.32-7.43); VBG pO2 41 mmHg
[2024-08-24 00:39] LABS: INTERNATIONAL NORM RATIO 0.9 (0.9-1.1); Prothrombin Time 10.4 SEC (10.9-12.4)
[2024-08-24 00:41] LABS: Influenza A PCR NEGATIVE (Negative); Influenza B PCR NEGATIVE (Negative); Resp Syncy Virus RNA Qual PCR NEGATIVE (Negative); SARS COV2 PCR INHOUSE NEGATIVE (Negative)
[2024-08-24 00:44] LABS: Ethanol 195 mg/dL
[2024-08-24 00:52] LABS: Alanine Aminotransferase 25 U/L (0-31); Albumin Level 4.5 g/dL (3.5-5.0); Alkaline Phosphatase 90 U/L (39-117); Anion Gap 17 (12-20); Aspartate Amino Transferase 25 U/L (5-31); Bilirubin Total 0.2 mg/dL (0.0-1.0); Blood Urea Nitrogen 17 mg/dL (9-16); Calcium 10.2 mg/dL (8.4-10.2); Carbon Dioxide 22 mmol/L (22-29); Chloride 107 mmol/L (96-108); Creatinine Clr Calc Pharmacy 58.3; Estimated Glomerular Filt Rate > 60; Glucose Random 112 mg/dL (60-115); Potassium 3.7 mmol/L (3.3-5.1); Sodium 142 mmol/L (135-145)
[2024-08-24 00:53] LABS: B Type Natriuretic Peptide < 10 pg/mL (<100)
[2024-08-24 00:54] LABS: Troponin-I High Sensitivity < 2.7 ng/L (<3.5-17.0)
[2024-08-24 01:28] VITALS: BP 132/55; PULSE 92; RESP 20; TEMP 36.5; O2SAT 98
[2024-08-24 02:09] VITALS: O2SAT 99
[2024-08-24] MEDS: predniSONE 20 MG TABLET 60 MG PO (02:28)
[2024-08-24 02:37] VITALS: BP 121/56; PULSE 89; RESP 16; TEMP 36.7; O2SAT 99
== END 2024-08-24 02:38 | disposition home or self-care (01) ==
PROVIDERS: Emergency Provider Emergency Medicine; PCP Family Medicine
DX: M31.0 Hypersensitivity angiitis (principal); R06.02 Shortness of breath; M54.50 Low back pain, unspecified; R07.89 Other chest pain; R10.2 Pelvic and perineal pain; Z03.818 Encounter for observation for suspected exposure to other biological agents ruled out; Z79.899 Other long term (current) drug therapy
CPT/HCPCS: 0241U; 36415; 71045; 80053; 80307; 82803; 83880; 84484; 85025; 85610; 93005; 99283; 99285

== ENCOUNTER → 2024-08-23 23:31 | Outpatient (BNV) | payer MEDICARE, SELFPAY | PROVIDERS: Emergency Provider Emergency Medicine; PCP Family Medicine; Visit Provider Internal Medicine | DX: R07.9 Chest pain, unspecified (principal) | CPT/HCPCS: 93010 ==

== ENCOUNTER → 2024-08-23 23:32 | Outpatient (BNV) | payer MEDICARE, SELFPAY | PROVIDERS: Emergency Provider Emergency Medicine; Visit Provider Radiology Diagnostic Radiology | DX: R07.89 Other chest pain (principal) | CPT/HCPCS: 71045 ==

== ENCOUNTER 2024-09-10 10:01 | Outpatient (AMB) | payer MEDICARE, SELFPAY ==
[2024-09-10 10:26] VITALS: BP 120/80; PULSE 115; TEMP 36.8; O2SAT 97
--- NOTE | 2024-09-10 10:26 | AM.OFFWIN_ITS ---
Intake Vital Signs 09/10/24 10:26 Weight 113 lb BP 120/80 Blood Pressure Location Lt brachial Position Sitting Pulse 115 H Pulse Source Pulse Oximeter Temp 98.3 F Temp Source Oral Pulse Oximetry (%) 97 Oxygen Delivery Method Room Air Intake Visit Reasons: EP SOB, cough, bones hurts Intake Note: Patient here for SOB, cough and body aches that has been present for 2-3 days. Patient Tobacco Use Status: Current everyday Tobacco user Allergies Penicillins [PCN] Allergy (Severe, Verified 09/10/24 10:27) ANAPHYLAXIS penicillin V Allergy (Unknown, Verified 09/10/24 10:27) anaphylaxis Do you need a note to return to daycare/school/sports/work: No HPI HPI Comments History of Present Illness Details History - The patient is a 68-year-old female pr esenting with shortness of breath, wheezing, and chest tightness. - Symptoms began over a week ago with th e perception of allergies and progressed to breathing difficulty this morning, which did not respond to allergy medication. - She reports COPD and uses Symbicort an d albuterol, though the latter is less effective in her current condition. - No fever, sinus pain, ear pain, or sor e throat reported. - Heart rate noted to be elevated, with a history of similar episodes. - No history of blood clots, cancer, or recent long-distance travel. - Is drinking fluids but no appetite. Physical Exam General: Cooperative, healthy appearing, comfortable and no acute distress Orientation/consciousness: Patient oriented x3 Limitations: No limitations Head: Normal to inspection Ears: Hearing grossly normal bilaterally, external ears normal and TM's normal bilaterally Nose: Normal external nose present, Normal nares present and No nasal discharge present Face and sinus: Normal facial exam and Yes sinuses nontender Mouth: Normal oral and palatal mucosa present and moist mucous membranes Throat: Yes tonsils normal, Yes uvula midline. Posterior oropharynx erythema Eyes: Appearance normal, both eyes and all related structures Neck: Normal visual inspection Respiratory: exp wheezes with rhonchi bilaterally. Normal respiratory effort, able to speak in complete sentences, Actively coughing, no respiratory distress, not tachypneic, no tripod positioning and no use of accessory muscles. Cardiovascular: tachy rate and Regular rhythm. Normal S1 and S2. Skin: No rashes or lesions noted Neuro: Patient oriented x3 Extremities: Normal to inspection and Yes no clubbing, cyanosis or edema PFSH Medical History Excessive drinking alcohol Smoking Social History Household Members: Children Housing: House Do you presently have visiting nurse or other home services: No Patient Tobacco Use Status: Current everyday Tobacco user Tobacco use type: Cigarette e-Cigarette/Vaping Use: Never Used Second Hand Smoke Exposure: Yes service: No Current occupational status: retired Review of Systems Const All systems reviewed & are unremarkable except as noted in HPI and below Physical Exam Vital Signs: Last Vital Signs Temp 98.3 F 09/10/24 10:26 Pulse 115 H 09/10/24 10:26 BP 120/80 09/10/24 10:26 Pulse Ox 97 09/10/24 10:26 Oxygen Delivery Method Room Air 09/10/24 10:26 Assessment & Plan Assessment & Plan (1) Lower respiratory infection (e.g., bronchitis, pneumonia, pneumonitis, pulmonitis): Code(s): J22 - Unspecified acute lower respiratory infection Plan: HR 115BPM and regular, O2 97% and other VSS, pt well appearing and PE remarkable for exp wheezes and rhonchi. Cannot PERC out due to age and HR though no risk factors so PE less likely but did advise if her SOB worsenes or doesn't improve with steroids, she should go to the ED for CTA chest to rule out PE. Pateint understands and agrees with plan. The patient will receive oral corticosteroids, specifically 50 mg of prednisone for five days, to address COPD exacerbation symptoms. A chest x-ray will be conducted to check for pneumonia, and antibiotics will be prescribed if bacterial infection is identified. A prescription for a cough suppressant is also provided to help with nighttime symptoms. Patient was informed and verbally consented to the use of an ambient scribe for clinic note documentation during this visit Orders: Orders XR chest 2V Today R05.9 - Cough, unspecified Medications: New benzonatate 200 mg PO BEDTIME PRN 10 caps 0RF cough prednisone 50 mg PO QAM 5 tabs 0RF Coding Level of Care Code New Pt Level 4 (12818) Diagnoses Lower respiratory infection (e.g., bronchitis, pneumonia, pneumonitis, pulmon itis) J22
--- OUTSIDE RECORDS SUMMARY | 2024-09-10 11:24 | XMS_ITS | Clinical Summary ---
Author Organization [employer] Address [address] [facility] [address] [place] [address] Care Team Providers Care Bill Distributor Name Role Phone Alexandra Ramirez Unavailable Unavailable King Loretta Primary Care Provider [phone] Allergies Active Allergy Reactions Criticality Noted Date [...] Do not swallow.. 3 each 3 4 Active ibuprofen 600 MG tabletIndication s:History of rib fracture Take 1 tablet (600 mg) by mouth every 8 (eight) hours if needed for moderate pain. 270 tablet 2 4 Active Active Problems Problem Noted Date Diagnosed [...] Encounters Date Type Department Care Team Description 08/24/2024 Telephone [facility] Information Management [address] [place] [address] Loretta Stock DO from Last 3 Months Immunizations Immunization Administration Dates Next Due Influenza, Injectable, MDCK, [...] Tdap) 08/14/2022 08/14/2012 COVID-19 Vaccine (3 - 2023-2 5 season) 2023 09/09/2020, 08/12/2020 Influenza Vaccine [...] patient's age to complete this topic Meningococcal B Vaccine Aged Out No l onger eligible based on patient's age to complete [...] Most Recently Relevant to Health Maintenance Insurance [facility] [employer] [place] Care Teams Bill Distributor Relationship Specialty Start Date End Date Loretta Stock DO [address] [place] [address] [place] [id number] PCP - General Family Medicine 01/17/24 Alexandra Ramirez Community Health Worker 08/28/22
== END 2024-09-10 10:47 | disposition home or self-care (01) ==
PROVIDERS: PCP Family Medicine; Visit Provider Physician Assistant
DX: J22 Unspecified acute lower respiratory infection (principal)

== ENCOUNTER 2024-09-10 10:01 | Outpatient (REF) | payer MEDICARE, SELFPAY ==
--- NOTE | ~2024-09-10 | XR_ITS ---
EXAMINATION: XR CHEST CLINICAL INFORMATION: R05.9 - Cough, unspecified COMPARISON: 08/23/2024. TECHNIQUE: 2 views of the chest were obtained. FINDINGS: The cardiac, hilar, and mediastinal contours are normal. The lungs are somewhat hyperaerated, however clear bilaterally. There is no pneumothorax or pleural effusion. There is no focal osseous or soft tissue abnormality. XR/XR chest 2V IMPRESSION: No active pulmonary disease. Electronically signed by: Bakari Easley MD 09/10/2024 11:08 AM EDT
--- OUTSIDE RECORDS SUMMARY | 2024-09-10 12:10 | XMS_ITS | Clinical Summary ---
Author Organization [employer] Address [address] [facility] [address] [place] [address] Care Team Providers Care Chief Deputy Court Clerk Name Role Phone Alexandra Ramirez Unavailable Unavailable King Loretta Primary Care Provider [phone] Allergies Active Allergy Reactions Criticality Noted Date [...] Type Department Care Team Description 08/24/2024 Telephone [facility] Information Management [address] [place] [address] Loretta Stock DO from Last [...] Most Recently Relevant to Health Maintenance Insurance [facility] [employer] Care Teams Chief Deputy Court Clerk Relationship Specialty Start Date End Date Loretta Stock DO [address] [place] [address] [place] [id number] PCP - General Family Medicine 01/17/24 Alexandra Ramirez Community Health Worker 08/28/22
== END 2024-09-10 10:02 | disposition home or self-care (01) ==
LOC: HO.HMGCX 10:01
PROVIDERS: PCP Family Medicine; Visit Provider Physician Assistant
DX: J22 Unspecified acute lower respiratory infection (principal); R05.9 Cough, unspecified
CPT/HCPCS: 71046; 99202

== ENCOUNTER → 2024-09-10 10:47 | Outpatient (BNV) | payer MEDICARE, SELFPAY | PROVIDERS: PCP Family Medicine; Visit Provider Radiology Diagnostic Radiology | DX: R05.9 Cough, unspecified (principal) | CPT/HCPCS: 71046 ==

== ENCOUNTER 2024-09-15 10:19 | Inpatient (IN) | payer MEDICARE, SELFPAY ==
[2024-09-15] VITALS (9 sets, daily range): BP systolic 132–158; BP diastolic 53–70; PULSE 86–118; RESP 18–26; TEMP 36.3–37.4; O2SAT 87–97; BMI 21.2
--- NOTE | ~2024-09-15 | XR_ITS ---
CLINICAL HISTORY: SOB 1 view chest x-ray Comparison: 08/23/2024 Findings: Increased bilateral lung markings more conspicuous in the mid/lower lungs. New small right lung opacities cannot be excluded. Pulmonary edema +/- right lower lung atelectasis/infiltrate can not be excluded. Normal size heart. Old left distal clavicle posttraumatic changes. IMPRESSION: Increased bilateral lung markings more conspicuous in the mid/lower lungs. New small right lung opacities cannot be excluded. Pulmonary edema +/- right lower lung atelectasis/infiltrate can not be excluded. This document has been electronically signed by: Juliana Navarrete MD on 09/15/2024 12:04:15
--- NOTE | 2024-09-15 10:39 | ECG_ITS ---
Test Reason : SOB Blood Pressure : */* mmHG Vent. Rate : 116 BPM Atrial Rate : 116 BPM P-R Int : 140 ms QRS Dur : 78 ms QT Int : 336 ms P-R-T Axes : 77 63 72 degrees QTcB Int : 467 ms Sinus tachycardia Possible Left atrial enlargement Borderline ECG When compared with ECG of 23-Aug-2024 23:36, No significant change was found Referred By: Jersey Mullins Electronically Signed By: Gorge Trevino
--- NOTE | 2024-09-15 10:48 | ED_ITS ---
HPI - SOB/Dyspnea General Chief Complaint: Dyspnea Stated Complaint: COPD Diff Breathing Time Seen by Provider: 09/15/24 10:38 Source: patient Mode of arrival: ambulatory Limitations: no limitations History of Present Illness ED Provider: DR. Mullins HPI Narrative: 68-year-old female former smoker with known history of COPD not on supplemental oxygen presented today for difficulty breathing, productive cough with greenish sputum, no fever, no chills, patient just finished a course of prednisone 2 weeks ago, patient quit smoking 7-10 days ago. Was seen at an urgent care today found to be hypoxic 88% on room air patient was instructed to come to the ED for further evaluation. No lower extremity swelling or tenderness, no recent travel, no history of DVT or PE. Related Data Home Medications ?Medication ?Instructions ?Recorded ?Confirmed multivitamin 1 tab PO DAILY 11/30/21 01/04/22 budesonide-formoterol HFA 80 inhalation 08/13/24 08/13/24 mcg-4.5 mcg/actuation aerosol inhaler (Symbicort) Previous Rx's ?Medication ?Instructions ?Recorded nicotine 21 mg/24 hr daily 1 patch transdermal DAILY #7 ea 12/06/21 transdermal patch benzonatate 200 mg capsule 200 mg PO BEDTIME PRN cough #10 09/10/24 caps prednisone 50 mg tablet 50 mg PO QAM #5 tabs 09/10/24 Allergies Allergy/AdvReac Type Severity Reaction Status Date / Time Penicillins [PCN] Allergy Severe ANAPHYLAXIS Verified 09/15/24 10:29 penicillin V Allergy Unknown anaphylaxis Verified 09/15/24 10:29 Review of Systems 2 Review of Systems: All other systems are reviewed and are negative Constitutional: Reports as per HPI and Reports no additional constitutional complaints Eyes: Reports as per HPI and Reports no additional eye complaints Reports system reviewed and no additional complaints, except as documented Cardiovascular: Reports as per HPI and Reports no additional cardiovascular complaints Respiratory: Reports as per HPI and Reports no additional respiratory complaints Gastrointestinal: Reports as per HPI and Reports no additional gastrointestinal complaints Genitourinary: Reports no additional female genitourinary complaints Musculoskeletal: Reports no additional musculoskeletal complaints Skin/Breast: Reports system reviewed and no additional complaints, except as docu Psychiatric: Reports no additional psychiatric complaints Endocrine: Reports no additional endocrine complaints Hematologic/Lymphatic: Reports no additional hematologic/lymphatic complaints Allergic/Immunologic: Reports no additional allergic/immunologic complaints Reports system reviewed and no additional complaints, except as documented and Reports Abnormal speech present COUNTS INCLUDE 234 BEDS AT THE [facility] Past Medical History Medical History Excessive drinking alcohol Smoking Social History Social History Household Members: Children Housing: House Do you presently have visiting nurse or other home services: No Patient Tobacco Use Status: Current everyday Tobacco user Tobacco use type: Cigarette Smoked in Last 30 Days: No e-Cigarette/Vaping Use: Never Used Second Hand Smoke Exposure: Yes Advance Directives: No Advance Directives Information Provided: Yes Do you have a plan to hurt others: No Plan service: No Current occupational status: retired Physical Exam 2 Vital Signs: Vital Signs: Last Vital Signs Temp 98.6 F 09/15/24 10:50 Pulse 117 H 09/15/24 11:08 Resp 26 H 09/15/24 11:08 BP 158/64 H 09/15/24 10:50 Pulse Ox 94 09/15/24 10:50 O2 Del Method Nasal Cannula 09/15/24 10:50 O2 Flow Rate 4 09/15/24 10:50 BMI result Body Mass Index 21.2 Vital signs have been reviewed and appear to be correct. Blood pressure elevated. Heart rate normal. Respiratory rate normal. Temperature normal. Oxygen saturation normal. Appearance: Alert. Oriented X3. No acute distress. Head: Normal external exam. Normocephalic. Atraumatic. No Rodarte signs noted. No raccoon eyes noted Eyes: PERRLA. EOMI. Conjunctiva and sclera normal. Eyelids normal. ENT: TM's Normal. Pharynx normal. Uvula midline. Moist mucous membranes. No trismus noted. No drooling noted. No muffled voice noted. Neck: Normal inspection. Neck supple. FROM. No adenopathy. Thyroid Normal. No meningeal signs. No neck mass noted. CVS: Normal heart rate and rhythm. Heart sound normal. No murmurs noted. Pulses normal throughout. Respiratory: No respiratory distress. Painless inspiration. Breath sounds normal. No wheezes/rales/rhonchi noted. Chest nontender. No accessory muscle usage noted or decreased air movement noted. Abdomen: Soft and nontender. Bowel sounds normal in all 4 quadrants. No distention noted. No organomegaly noted. No visible injury noted. Back: No CVA tenderness. Full range of motion noted. Skin: Skin warm and dry. Normal skin color. Normal skin turgor. No rashes/lesions/lacerations noted. Extremities: No lower extremity edema. Extremities exhibit normal range of motion. Extremities nontender. Neuro: Oriented X 3. Cranial nerve exam: II-XII are grossly intact No motor deficit. No sensory deficit. Reflexes normal. Course Reevaluation(s) Reevaluation #1: 68-year-old female history of COPD, recently quit smoking presented with shortness of breath and productive cough. Acute COPD exacerbation, patient is receiving Solu-Medrol, magnesium, and 1 dose of empirical antibiotic levofloxacin. Hypokalemia will replete potassium. Time: 12:08 Medications Administered Generic Name Dose Route Start Last Admin Trade Name Freq PRN Reason Stop Dose Admin Magnesium Sulfate 2 gm in 50 mls @ 25 mls/hr 09/15/24 10:41 09/15/24 11:30 Magnesium Sulfate/H2o IV 09/15/24 12:40 Infused ONCE ONE Infusion Levofloxacin 750 mg in 150 mls @ 100 mls/hr 09/15/24 10:45 09/15/24 11:31 Levaquin IV 09/15/24 12:14 100 mls/hr ONCE ONE Administration Discontinued Medications Generic Name Dose Route Start Last Admin Trade Name Freq PRN Reason Stop Dose Admin Albuterol Sulfate 5 mg/ 0 mg 09/15/24 11:03 09/15/24 11:05 Albuterol/Ipratropium 3 ml INHALE 09/15/24 11:04 1 each ONCE ONE Administration Methylprednisolone Sodium Succinate 125 mg 09/15/24 10:38 09/15/24 11:06 Methylprednisolone Sod Succ 125 Mg Vial IVPUSH 09/15/24 10:39 125 mg ONCE ONE Administration Medical Decision Making Differential Diagnosis Differential Diagnoses: The differential diagnosis associated with the presentation includes (COPD exacerbation, pneumonia, pneumothorax, pleural effusion, CHF, electrolyte derangement, severe anemia.) Admission/Observation Consideration of admission/observation: Escalation of care including admission/observation considered Lab Data MDM Lab Attestation statement: I reviewed the patient's lab results. 09/15/24 10:59 09/15/24 11:22 Labs: Lab Results 09/15/24 09/15/24 09/15/24 Range/Units 10:59 11:05 11:22 WBC 16.7 H (4.8-10.8) X10*3/uL RBC 4.52 (4.20-5.50) X10*6/uL Hgb 14.5 (12.0-16.0) g/dl Hct 40.3 (37.0-47.0) % MCV 89.2 (80.0-98.0) fL MCH 32.1 (27.0-33.0) pg MCHC 36.0 H (31.0-35.0) g/dl RDW 12.7 (11.0-16.0) % Plt Count 238 D (160-400) X10*3/uL MPV 9.8 (9.4-12.3) fL Immature Gran % (Auto) 1.1 H (0.0-0.4) % Neut % (Auto) 88.2 H (45-73) % Lymph % (Auto) 7.0 L (20-40) % Dyer % (Auto) 3.5 (2-11) % Eos % (Auto) 0.0 (0-4) % Baso % (Auto) 0.2 (0-2) % Lymph # (Auto) 1.2 (1.2-4.9) X10*3/uL Dyer # (Auto) 0.6 (0.1-1.2) X10*3/uL Eos # (Auto) 0.0 (0.0-0.4) X10*3/uL Baso # (Auto) 0.0 (0.0-0.2) X10*3/uL Abs Immat Gran (auto) 0.18 H (0.00-0.03) X10*3/uL Absolute Neuts (auto) 14.7 H (2.0-8.3) x10*3/uL Absolute Nucleated RBC 0.000 (0.0-0.012) X10*3/uL Nucleated RBC % (auto) 0.0 (0.0-0.2) /100WBC VBG pH 7.49 H (7.32-7.43) VBG pCO2 41 mmHg VBG pO2 38 mmHg VBG HCO3 32 H (22-26) mmol/L VBG O2 Saturation 65.0 % VBG Base Excess 7.9 mmol/L Sodium 139 (135-145) mmol/L Potassium 3.0 L (3.3-5.1) mmol/L Chloride 99 (96-108) mmol/L Carbon Dioxide 26 (22-29) mmol/L Anion Gap 17 (12-20) BUN 9 (9-16) mg/dL Creatinine 0.57 (0.5-1.4) mg/dL Estim Creat Clear Calc 70.2 Estimated GFR > 60 Random Glucose 126 H (60-115) mg/dL Lactic Acid 1.7 (0.5-2.0) mmol/L Calcium 9.8 (8.4-10.2) mg/dL Total Bilirubin 1.4 H (0.0-1.0) mg/dL Direct Bilirubin 0.6 H (0.0-0.5) mg/dL AST 47 H (5-31) U/L ALT 36 H (0-31) U/L Alkaline Phosphatase 141 H (39-117) U/L Troponin I High Sens 3.2 (<3.5-17.0) ng/L B-Natriuretic Peptide 16 (<100) pg/mL Total Protein 7.2 (6.5-8.0) g/dL Albumin 4.3 (3.5-5.0) g/dL Lipase 20 (8-78) U/L Influenza Type A (PCR) NEGATIVE (Negative) Influenza Type B (PCR) NEGATIVE (Negative) RSV RNA Qual (PCR) NEGATIVE (Negative) SARS-CoV-2 RNA (RT-PCR) NEGATIVE (Negative) Independent Interpretation I performed an independent interpretation of an: Plain X-Ray (Chest:Increased bilateral lung markings more conspicuous in the mid/lower lungs. New small right lung opacities cannot be excluded. Pulmonary edema +/- right lower lung atelectasis/infiltrate can not be excluded.) Radiology Impression Discussion of test interpretation with radiology: I have reviewed the radiologist's reading. Discharge Plan Discharge Clinical Impression: COPD exacerbation, Acute hypokalemia Patient Disposition: Admitted As Inpatient Print Language: Upper Sorbian
[2024-09-15] MEDS: Albuterol Sulfate 5 MG, Albuterol/Iprat 2.5/0.5MG 3 ML 3 ML INHALE (11:05)
[2024-09-15 11:06] LABS: MANUAL DIFF FLAG NO
[2024-09-15 11:07] LABS: Basophils Percent Auto 0.2 % (0-2); Hematocrit 40.3 % (37.0-47.0); Hemoglobin 14.5 g/dl (12.0-16.0); Imm Gran Abs Auto 0.18 X10*3/uL (0.00-0.03); Imm Gran Pct Auto 1.1 % (0.0-0.4); Lymphocytes Absolute Auto 1.2 X10*3/uL (1.2-4.9); Mean Corpuscular Hemoglobin 32.1 pg (27.0-33.0); Mean Corpuscular Volume 89.2 fL (80.0-98.0); Mean Platelet Volume 9.8 fL (9.4-12.3); Monocytes Absolute Auto 0.6 X10*3/uL (0.1-1.2); Monocytes Percent Auto 3.5 % (2-11); Neutrophils Absolute Auto 14.7 x10*3/uL (2.0-8.3); Neutrophils Percent Auto 88.2 % (45-73); Platelet Count 238 X10*3/uL (160-400); Red Blood Count 4.52 X10*6/uL (4.20-5.50); Red Cell Distribution Width 12.7 % (11.0-16.0); White Blood Count 16.7 X10*3/uL (4.8-10.8)
[2024-09-15] MEDS: Magnesium Sulfate/H2O 2 GM/50 ML PIGGYBACK IV (11:07)
[2024-09-15 11:08] LABS: Venous Blood Gas Refer to POC result
[2024-09-15 11:10] LABS: VBG Base Excess 7.9 mmol/L; VBG HCO3 32 mmol/L (22-26); VBG pCO2 41 mmHg; VBG pH 7.49 (7.32-7.43); VBG pO2 38 mmHg
--- NOTE | 2024-09-15 11:10 | PC.NURSE ---
Pt comes to ED today as a walk in for c/o SOB. Pt reports Hx COPD and recently quite smoking about 1 month ago. States she was seen at urgent care earlier this week for same complaint, was given prednisone and had a negative CXR. Pt reports symptoms have gotten worse since. Pt sats at 84% RA on arrival to room. 4L o2 applies with good result: O2 sat 94% 22g to RAC placed. Blood labs drawn including blood cultures x2 and lactic. Verbal orders received from Dr. Dorman to administer Magnesium over 20 minutes. RT at bedside for eval and Tx.
[2024-09-15 11:20] LABS: Lactic Acid 1.7 mmol/L (0.5-2.0)
[2024-09-15 11:26] LABS: B Type Natriuretic Peptide 16 pg/mL (<100)
[2024-09-15] MEDS: levoFLOXacin/D5W 750 MG/150 ML PIGGYBACK 100 MG IV (11:31)
[2024-09-15 11:40] LABS: Alanine Aminotransferase 36 U/L (0-31); Albumin Level 4.3 g/dL (3.5-5.0); Alkaline Phosphatase 141 U/L (39-117); Anion Gap 17 (12-20); Aspartate Amino Transferase 47 U/L (5-31); Bilirubin Direct 0.6 mg/dL (0.0-0.5); Bilirubin Total 1.4 mg/dL (0.0-1.0); Blood Urea Nitrogen 9 mg/dL (9-16); Calcium 9.8 mg/dL (8.4-10.2); Carbon Dioxide 26 mmol/L (22-29); Chloride 99 mmol/L (96-108); Creatinine Clr Calc Pharmacy 70.2; Estimated Glomerular Filt Rate > 60; Glucose Random 126 mg/dL (60-115); Lipase 20 U/L (8-78); Sodium 139 mmol/L (135-145); Total Protein 7.2 g/dL (6.5-8.0)
[2024-09-15 11:46] LABS: Influenza A PCR NEGATIVE (Negative); Influenza B PCR NEGATIVE (Negative); Resp Syncy Virus RNA Qual PCR NEGATIVE (Negative); SARS COV2 PCR INHOUSE NEGATIVE (Negative)
[2024-09-15 11:48] LABS: Troponin-I High Sensitivity 3.2 ng/L (<3.5-17.0)
--- NOTE | 2024-09-15 12:35 | P.HPHOSP_ITS ---
History of Present Illness Date of Service: 09/15/24 Chief Complaint: shortness of breath Review of Systems 2 Review of Systems: Gen: no fever Resp: no sob, no cough CV: no chest, no SNELL, no leg edema GI: No n/v, no abd pain Neuro: No confusion [facility] Medical History Excessive drinking alcohol Smoking Social History Household Members: Children Housing: House Do you presently have visiting nurse or other home services: No Patient Tobacco Use Status: Current everyday Tobacco user Tobacco use type: Cigarette Smoked in Last 30 Days: No e-Cigarette/Vaping Use: Never Used Second Hand Smoke Exposure: Yes Advance Directives: No Advance Directives Information Provided: Yes Do you have a plan to hurt others: No Plan service: No Current occupational status: retired [employer] Allergies Allergy/AdvReac Type Severity Reaction Status Date / Time Penicillins [PCN] Allergy Severe ANAPHYLAXIS Verified 09/15/24 10:29 penicillin V Allergy Unknown anaphylaxis Verified 09/15/24 10:29 Active Medications: Current Medications Magnesium Sulfate (Magnesium Sulfate/H2o) 2 gm in 50 mls @ 25 mls/hr IV ONCE ONE Stop: 09/15/24 12:40 Last Infusion: 09/15/24 11:30 Dose: Infused Potassium Chloride (Potassium Chloride/H20) 10 meq in 100 mls @ 100 mls/hr IV ONCE ONE Stop: 09/15/24 13:09 Home Medications ?Medication ?Instructions ?Recorded ?Confirmed ?Last Taken ?Type multivitamin 1 tab PO DAILY 11/30/21 01/04/22 Unknown History budesonide-formoterol HFA 80 inhalation 08/13/24 08/13/24 Unknown History mcg-4.5 mcg/actuation aerosol inhaler (Symbicort) Physical Exam 2 Vital Signs and Narrative: Vital Signs: Last Vital Signs Temp 99.3 F 09/15/24 12:19 Pulse 118 H 09/15/24 12:19 Resp 24 H 09/15/24 12:19 BP 137/53 L 09/15/24 12:19 Pulse Ox 93 09/15/24 12:19 O2 Del Method Nasal Cannula 09/15/24 12:19 O2 Flow Rate 4 09/15/24 12:19 BMI result Body Mass Index 21.2 Const: Other: General: AO X 3, no acute distress Resp: CTA bilateral CVS: S1,S2,RRR GI: +BS, NT, no distention Skin: No rash Neuro: motor grossly intact Psych: appropriate affect Results Labs 09/15/24 10:59 09/15/24 11:22 Labs: Laboratory Results - last 24 hr 09/15/24 09/15/24 09/15/24 10:59 11:05 11:22 MCV 89.2 MCH 32.1 MCHC 36.0 H RDW 12.7 Plt Count 238 D MPV 9.8 Immature Gran % (Auto) 1.1 H Neut % (Auto) 88.2 H Lymph % (Auto) 7.0 L Roberts % (Auto) 3.5 Eos % (Auto) 0.0 Baso % (Auto) 0.2 Lymph # (Auto) 1.2 Roberts # (Auto) 0.6 Eos # (Auto) 0.0 Baso # (Auto) 0.0 Abs Immat Gran (auto) 0.18 H Absolute Neuts (auto) 14.7 H Absolute Nucleated RBC 0.000 Nucleated RBC % (auto) 0.0 VBG pH 7.49 H VBG pCO2 41 VBG pO2 38 VBG HCO3 32 H VBG O2 Saturation 65.0 VBG Base Excess 7.9 Anion Gap 17 Estim Creat Clear Calc 70.2 Estimated GFR > 60 Random Glucose 126 H Lactic Acid 1.7 Calcium 9.8 Total Bilirubin 1.4 H Direct Bilirubin 0.6 H AST 47 H ALT 36 H Alkaline Phosphatase 141 H B-Natriuretic Peptide 16 Total Protein 7.2 Albumin 4.3 Lipase 20 Influenza Type A (PCR) NEGATIVE Influenza Type B (PCR) NEGATIVE RSV RNA Qual (PCR) NEGATIVE SARS-CoV-2 RNA (RT-PCR) NEGATIVE Assessment and Plan (1) COPD exacerbation: Status: Acute Quality Stroke Does the patient have a stroke diagnosis?: No VTE Prior VTE?: No VTE Risk Level:: Medical - moderate - high VTE Device Contraindication: Treatment Not Indicated VTE Drug Contraindication: N/A - Med Ordered
[2024-09-15] MEDS: Potassium Chloride Packet 20 MEQ PACKET 40 MEQ PO (12:44)
--- NOTE | 2024-09-15 12:45 | PM.IMHP ---
History of Present Illness Date of Service: 09/15/24 Chief Complaint: Shortness of breath 68 female with history of Lupus, copd, active smoker although she says she quit a month ago. She presents with shortness of breath. Las week she was sick with difficulty breathing and was evaluated and given 5 days of Prednionse 50 mg daily for 5 days at an urgent care clinic. She has continued to be short of breath, and not able to catch my breath . She has a productive ough, reports no fever. Her oxygen saturation was 87 on room. She is tachycy, CXR suggest possible infiltrate (see report) , WBC is 16 likely from steroid use. ED treatment: Solu-medrol, magnesium, Levaquin and bronchodilators with albuterol and oxygen. Oxygen saturation is now 93% on 4 liters, she feels a little relief. Review of Systems Review of Systems: Gen: no fever Resp: + sob, no cough CV: no chest, no SNELL, no leg edema GI: No n/v, no abd pain Neuro: No confusion Yes all other systems are reviewed and are negative [facility] Medical History COPD (chronic obstructive pulmonary disease) Excessive drinking alcohol Smoking Social History Household Members: Children Housing: House Do you presently have visiting nurse or other home services: No Patient Tobacco Use Status: Current everyday Tobacco user Tobacco use type: Cigarette Smoked in Last 30 Days: No e-Cigarette/Vaping Use: Never Used Second Hand Smoke Exposure: Yes Advance Directives: No Advance Directives Information Provided: Yes Do you have a plan to hurt others: No Plan service: No Current occupational status: retired Meds Allergies Allergy/AdvReac Type Severity Reaction Status Date / Time Penicillins [PCN] Allergy Severe ANAPHYLAXIS Verified 09/15/24 10:29 penicillin V Allergy Unknown anaphylaxis Verified 09/15/24 10:29 Active Medications: Current Medications Potassium Chloride (Potassium Chloride/H20) 10 meq in 100 mls @ 100 mls/hr IV ONCE ONE Stop: 09/15/24 13:09 Home Medications ?Medication ?Instructions ?Recorded ?Confirmed ?Last Taken ?Type multivitamin 1 tab PO DAILY 11/30/21 09/15/24 09/14/24 History budesonide-formoterol HFA 80 1 inh inhalation DAILY 08/13/24 09/15/24 09/14/24 History mcg-4.5 mcg/actuation aerosol inhaler (Symbicort) Physical Exam Vital Signs and Narrative: Vital Signs: Last Vital Signs Temp 99.3 F 09/15/24 12:19 Pulse 118 H 09/15/24 12:19 Resp 24 H 09/15/24 12:19 BP 137/53 L 09/15/24 12:19 Pulse Ox 93 09/15/24 12:19 O2 Del Method Nasal Cannula 09/15/24 12:19 O2 Flow Rate 4 09/15/24 12:19 BMI result Body Mass Index 21.2 Const: Other: General: AO X 3, no acute distress Resp: tight air movement, no wheeze, becomes more dyspnic when talking, no accessory muscle use at this time CVS: S1,S2,RRR GI: +BS, NT, no distention Skin: No rash Neuro: motor grossly intact Psych: appropriate affect Results Labs 09/15/24 10:59 09/15/24 11:22 Labs: Laboratory Results - last 24 hr 09/15/24 09/15/24 09/15/24 10:59 11:05 11:22 MCV 89.2 MCH 32.1 MCHC 36.0 H RDW 12.7 Plt Count 238 D MPV 9.8 Immature Gran % (Auto) 1.1 H Neut % (Auto) 88.2 H Lymph % (Auto) 7.0 L [place] % (Auto) 3.5 Eos % (Auto) 0.0 Baso % (Auto) 0.2 Lymph # (Auto) 1.2 [place] # (Auto) 0.6 Eos # (Auto) 0.0 Baso # (Auto) 0.0 Abs Immat Gran (auto) 0.18 H Absolute Neuts (auto) 14.7 H Absolute Nucleated RBC 0.000 Nucleated RBC % (auto) 0.0 VBG pH 7.49 H VBG pCO2 41 VBG pO2 38 VBG HCO3 32 H VBG O2 Saturation 65.0 VBG Base Excess 7.9 Anion Gap 17 Estim Creat Clear Calc 70.2 Estimated GFR > 60 Random Glucose 126 H Lactic Acid 1.7 Calcium 9.8 Total Bilirubin 1.4 H Direct Bilirubin 0.6 H AST 47 H ALT 36 H Alkaline Phosphatase 141 H B-Natriuretic Peptide 16 Total Protein 7.2 Albumin 4.3 Lipase 20 Influenza Type A (PCR) NEGATIVE Influenza Type B (PCR) NEGATIVE RSV RNA Qual (PCR) NEGATIVE SARS-CoV-2 RNA (RT-PCR) NEGATIVE Assessment and Plan (1) Pneumonia: Status: Acute (2) COPD exacerbation: Status: Acute Plan 68/F with acute hypoxic resp failure d/t copd exacerbation that has failed outpatient treatment, likely from CAP Acute hypoxic resp failure d/t copd exacerbation and PNA Treat underlying PNA with Levaquin Xopenex scheduled and PRN for copd IV solumedrol O2 with goal of O2 saturation no more than 94 % Smoking cessation discussed--NRT Leukocytois not d/t speis, rather due to recent steroid use Tachycardia likey related to albuterol use Quality Stroke Does the patient have a stroke diagnosis?: No VTE Prior VTE?: No VTE Risk Level:: Medical - moderate - high VTE Device Contraindication: Treatment Not Indicated VTE Drug Contraindication: N/A - Med Ordered
[2024-09-15] MEDS: Potassium Chloride/H20 10 MEQ/100 ML PIGGYBACK 100 MEQ IV (12:48)
--- NOTE | 2024-09-15 12:55 | PC.NURSE ---
Hospitalist at bedside.
--- NOTE | 2024-09-15 13:10 | PHA.MEDREC ---
Pharmacy Consult ? Medication Reconciliation Pharmacy has completed the medication reconciliation. Spoke to patient at bedside. She states she only takes her inhaler and multivitamin. Last took them yesterday.
[2024-09-15] MEDS: Enoxaparin Sodium 40 MG/0.4 ML SYRINGE SUBCUT (13:32)
[2024-09-15] MEDS: Nicotine 7 MG PATCH.TD24 TRANSDERMA (13:33)
[2024-09-15 14:42] LABS: Appearance Urine Clear; Color Urine Yellow; Glucose Urine UA Negative (Negative); Leukocyte Esterase Urine Negative (Negative); Nitrite Urine Negative (Negative); Specific Gravity - Urine <= 1.005 (1.005-1.025); Urine Blood Negative (Negative); Urine Ketones Negative (Negative); Urine Protein Negative (Neg-Trace)
[2024-09-15] MEDS: levalbuterol HCL 2.5 MG, Ipratropium Bromide 0.5 MG INHALE ×2 (15:33→19:31)
[2024-09-15] MEDS: 0.9 % Sodium Chloride Flush 3 ML SYRINGE IVFLUSH ×2 (16:10→20:58)
[2024-09-15] MEDS: Benzonatate 100 MG CAPSULE PO (19:22)
[2024-09-15] MEDS: methylPREDNISolone Sod Succ 40 MG/ML VIAL IVPUSH (20:50)
[2024-09-15] MEDS: Melatonin 3 MG TABLET 6 MG PO (20:50)
[2024-09-16] VITALS (8 sets, daily range): BP systolic 130–161; BP diastolic 71–96; PULSE 85–114; RESP 16–20; TEMP 36.4–36.8; O2SAT 89–98
[2024-09-16] MEDS: Benzonatate 100 MG CAPSULE PO (05:37)
[2024-09-16 06:25] LABS: Alanine Aminotransferase 31 U/L (0-31); Albumin Level 3.4 g/dL (3.5-5.0); Alkaline Phosphatase 114 U/L (39-117); Anion Gap 14 (12-20); Aspartate Amino Transferase 19 U/L (5-31); Bilirubin Total 0.5 mg/dL (0.0-1.0); Blood Urea Nitrogen 10 mg/dL (9-16); Calcium 9.1 mg/dL (8.4-10.2); Carbon Dioxide 25 mmol/L (22-29); Chloride 106 mmol/L (96-108); Creatinine Clr Calc Pharmacy 78.5; Estimated Glomerular Filt Rate > 60; Glucose Random 148 mg/dL (60-115); Sodium 141 mmol/L (135-145)
[2024-09-16] MEDS: levalbuterol HCL 2.5 MG, Ipratropium Bromide 0.5 MG INHALE ×4 (07:55→19:45)
[2024-09-16] MEDS: methylPREDNISolone Sod Succ 40 MG/ML VIAL IVPUSH ×2 (08:06→19:59)
[2024-09-16] MEDS: Multivitamin TABLET 1 TAB PO (08:06)
[2024-09-16] MEDS: Nicotine 7 MG PATCH.TD24 TRANSDERMA (08:07)
[2024-09-16] MEDS: levoFLOXacin 750 MG TABLET PO (08:07)
[2024-09-16] MEDS: 0.9 % Sodium Chloride Flush 3 ML SYRINGE IVFLUSH ×3 (08:07→19:59)
[2024-09-16] MEDS: guaiFENesin 200 MG/10 ML 10 ML LIQUID PO ×3 (10:35→20:02)
[2024-09-16] MEDS: Fluticasone/Vilanterol 100/25 BLST.W.DEV 1 PUFF INHALE (11:17)
--- NOTE | 2024-09-16 13:59 | MHC.CM.PN ---
IMM delivered. Patient lives in a home alone. Functionally independent. Denies use of DME or services. PCP Loretta Stock DO HCP on file lists daughter, Jaye, as HCP. Patient reports she has an updated HCP naming her other daughter, Kia, as HCA. Copy requestd. DP: Home self care is the goal. Daughter, Kia, to transport. CM will continue to follow.
[2024-09-16] MEDS: Enoxaparin Sodium 40 MG/0.4 ML SYRINGE SUBCUT (14:11)
--- NOTE | 2024-09-16 18:30 | HO.PM.IMPN ---
Subjective Subjective Date of Service: 09/16/24 Interval History: copd, pneumonia Review of Systems sob seems somewhat improving has cough no fevers Review of Systems: Yes all other systems are reviewed and are negative Physical Exam Vital Signs: Vital Signs: Last Vital Signs Temp 97.8 F 09/16/24 15:42 Pulse 107 H 09/16/24 15:42 Resp 16 09/16/24 15:42 BP 130/71 09/16/24 15:42 Pulse Ox 96 09/16/24 15:42 O2 Del Method Room Air 09/16/24 15:42 O2 Flow Rate 2 09/16/24 07:46 BMI result Body Mass Index 21.2 General: AO X 3, no acute distress Resp: air entry diminshed ,has b/l exp wheezing CVS: S1,S2,RRR GI: +BS, NT, no distention Skin: No rash Neuro: motor grossly intact Psych: appropriate affect Objective Data Active Medications Acetaminophen (Acetaminophen 325 Mg Tablet) 650 mg PO Q6H PRN PRN Reason: Pain, Mild 1-3,fever,headache Benzonatate (Benzonatate 100 Mg Capsule) 100 mg PO TID PRN PRN Reason: Cough Last Admin: 09/16/24 05:37 Dose: 100 mg Documented By: MOR Calcium Carbonate (Calcium Carbonate 750 Mg Tab.Chew) 750 mg PO Q4H PRN PRN Reason: Heartburn Levalbuterol HCl 2.5 mg/ (Ipratropium [place] 0.5 mg) 0 mg INHALE RQ4H WHILE AWAKE [facility] Last Admin: 09/16/24 15:20 Dose: 1 dose Documented By: TOSHA Levalbuterol HCl 1.25 mg/ (Ipratropium [place] 0.5 mg) 0 mg INHALE Q2H PRN PRN Reason: Shortness of Breath/Wheezing Enoxaparin Sodium (Enoxaparin Sodium 40 Mg/0.4 Ml Syringe) 40 mg SUBCUT Q24H [facility] Last Admin: 09/16/24 14:11 Dose: 40 mg Documented By: JOSUE Fluticasone/Vilanterol (Fluticasone/Vilanterol 100/25 Blst.W.Dev) 1 puff INHALE DAILY [facility] Last Admin: 09/16/24 11:17 Dose: 1 puff Documented By: TOSHA Guaifenesin (Guaifenesin 200 Mg/10 Ml 10 Ml Liquid) 10 ml PO Q4H PRN PRN Reason: Cough Last Admin: 09/16/24 14:11 Dose: 10 ml Documented By: JOSUE Levofloxacin (Levofloxacin 750 Mg Tablet) 750 mg PO Q24H [facility] Stop: 09/19/24 09:01 Last Admin: 09/16/24 08:07 Dose: 750 mg Documented By: JOSUE Magnesium Hydroxide (Milk Of Magnesia 30 Ml Oral.Susp) 30 ml PO DAILY PRN PRN Reason: Constipation Melatonin (Melatonin 3 Mg Tablet) 6 mg PO BEDTIME PRN PRN Reason: Insomnia Last Admin: 09/15/24 20:50 Dose: 6 mg Documented By: MOR Methylprednisolone Sodium Succinate (Methylprednisolone Sod Succ 40 Mg/Ml Vial) 40 mg IVPUSH BID [facility] Last Admin: 09/16/24 08:06 Dose: 40 mg Documented By: JOSUE Multivitamins/Vitamin C (Multivitamin Tablet) 1 tab PO DAILY [facility] Last Admin: 09/16/24 08:06 Dose: 1 tab Documented By: JOSUE Nicotine (Nicotine 7 Mg Patch.Td24) 7 mg TRANSDERMA DAILY [facility] Last Admin: 09/16/24 08:07 Dose: 7 mg Documented By: JOSUE Ondansetron HCl (Ondansetron Hcl 4 Mg/2 Ml Vial) 4 mg IVPUSH Q8H PRN PRN Reason: Nausea and Vomiting Polyethylene Glycol (Polyethylene Glycol 3350 17 Gm Powd.Pack) 17 gm PO DAILY PRN PRN Reason: Constipation Sodium Chloride (0.9 % Sodium Chloride Flush 3 Ml Syringe) 3 ml IVFLUSH QSHIFT [facility] Last Admin: 09/16/24 17:05 Dose: 3 ml Documented By: DIONI Labs 09/15/24 10:59 09/16/24 05:30 Labs: Laboratory Results - last 24 hr 09/16/24 05:30 Anion Gap 14 Estim Creat Clear Calc 78.5 Estimated GFR > 60 Random Glucose 148 H Calcium 9.1 D Total Bilirubin 0.5 AST 19 ALT 31 Alkaline Phosphatase 114 Total Protein 6.0 L Albumin 3.4 L Microbiology Microbiology Results: Microbiology 09/15/24 10:59 Blood Culture - Preliminary Blood - Venous No growth after 24 hours. 09/15/24 10:59 Blood Culture - Preliminary Blood - Venous No growth after 24 hours. Assessment and Plan (1) COPD exacerbation: Status: Acute Plan 68/F with acute hypoxic resp failure d/t copd exacerbation that has failed outpatient treatment, likely from CAP Acute hypoxic resp failure d/t copd exacerbation and PNA Treat underlying PNA with Levaquin Xopenex scheduled and PRN for copd IV solumedrol O2 with goal of O2 saturation no more than 94 % Smoking cessation discussed--NRT Leukocytois not d/t speis, rather due to recent steroid use Tachycardia likey related to albuterol use dvt prophylax: s/c lovenox. ongoing need :Acute hypoxic resp failure d/t copd exacerbation and PNA-need oxygen ,nebs ,steriods ,levaquin . Quality Stroke Does the patient have a stroke diagnosis?: No VTE Prior VTE?: No VTE Risk Level:: Medical - moderate - high VTE Device Contraindication: Treatment Not Indicated VTE Drug Contraindication: N/A - Med Ordered
[2024-09-17] VITALS (8 sets, daily range): BP systolic 137–162; BP diastolic 63–88; PULSE 78–104; RESP 18; TEMP 36.6–37.1; O2SAT 95–97
[2024-09-17] MEDS: guaiFENesin 200 MG/10 ML 10 ML LIQUID PO ×2 (01:38→06:19)
[2024-09-17 06:38] LABS: Hematocrit 32.3 % (37.0-47.0); Hemoglobin 11.2 g/dl (12.0-16.0); Mean Corpuscular HGB Conc 34.7 g/dl (31.0-35.0); Mean Corpuscular Hemoglobin 32.3 pg (27.0-33.0); Mean Corpuscular Volume 93.1 fL (80.0-98.0); Mean Platelet Volume 9.4 fL (9.4-12.3); Platelet Count 236 X10*3/uL (160-400); Red Blood Count 3.47 X10*6/uL (4.20-5.50); Red Cell Distribution Width 12.5 % (11.0-16.0); White Blood Count 13.2 X10*3/uL (4.8-10.8)
[2024-09-17 06:53] LABS: Anion Gap 14 (12-20); Blood Urea Nitrogen 14 mg/dL (9-16); Carbon Dioxide 26 mmol/L (22-29); Chloride 104 mmol/L (96-108); Creatinine Clr Calc Pharmacy 72.8; Estimated Glomerular Filt Rate > 60; Glucose Random 151 mg/dL (60-115); Potassium 3.7 mmol/L (3.3-5.1); Sodium 140 mmol/L (135-145)
[2024-09-17] MEDS: levalbuterol HCL 2.5 MG, Ipratropium Bromide 0.5 MG INHALE ×4 (08:03→19:15)
[2024-09-17] MEDS: Fluticasone/Vilanterol 100/25 BLST.W.DEV 1 PUFF INHALE (08:03)
[2024-09-17] MEDS: Nicotine 7 MG PATCH.TD24 TRANSDERMA (08:27)
[2024-09-17] MEDS: levoFLOXacin 750 MG TABLET PO (08:28)
[2024-09-17] MEDS: Multivitamin TABLET 1 TAB PO (08:28)
[2024-09-17] MEDS: methylPREDNISolone Sod Succ 40 MG/ML VIAL IVPUSH ×2 (08:28→20:29)
[2024-09-17] MEDS: 0.9 % Sodium Chloride Flush 3 ML SYRINGE IVFLUSH ×3 (08:28→20:29)
[2024-09-17] MEDS: guaiFEN/Codeine SF 200/20/10ML 10 ML LIQUID PO ×3 (11:51→21:51)
--- NOTE | 2024-09-17 12:24 | MHC.CM.PN ---
Per MD rounds patient not medically cleared for dc. Continue to anticipate home, self care. CM will continue to follow.
[2024-09-17] MEDS: Enoxaparin Sodium 40 MG/0.4 ML SYRINGE SUBCUT (14:04)
--- NOTE | 2024-09-17 17:51 | P.PNIM_ITS ---
Subjective Subjective Date of Service: 09/17/24 Interval History: copd ,pneumonia Review of Systems Shortness of breaths with minimal exertion, has aggressive cough. No fever Review of Systems: Yes all other systems are reviewed and are negative Physical Exam 2 Vital Signs: Vital Signs: Last Vital Signs Temp 98.3 F 09/17/24 15:57 Pulse 87 09/17/24 15:57 Resp 18 09/17/24 15:57 BP 137/63 09/17/24 15:57 Pulse Ox 95 09/17/24 15:57 O2 Del Method Nasal Cannula 09/17/24 15:57 O2 Flow Rate 2.0 09/17/24 15:57 BMI result Body Mass Index 21.2 General: AO X 3, no acute distress Resp: air entry diminshed ,has b/l exp wheezing CVS: S1,S2,RRR GI: +BS, NT, no distention Skin: No rash Neuro: motor grossly intact Psych: appropriate affect Objective Data Active Medications Acetaminophen (Acetaminophen 325 Mg Tablet) 650 mg PO Q6H PRN PRN Reason: Pain, Mild 1-3,fever,headache Benzonatate (Benzonatate 100 Mg Capsule) 100 mg PO TID PRN PRN Reason: Cough Last Admin: 09/16/24 05:37 Dose: 100 mg Documented By: MOR Calcium Carbonate (Calcium Carbonate 750 Mg Tab.Chew) 750 mg PO Q4H PRN PRN Reason: Heartburn Levalbuterol HCl 2.5 mg/ (Ipratropium [place] 0.5 mg) 0 mg INHALE RQ4H WHILE AWAKE [facility] Last Admin: 09/17/24 15:17 Dose: 1 dose Documented By: TOSHA Levalbuterol HCl 1.25 mg/ (Ipratropium [place] 0.5 mg) 0 mg INHALE Q2H PRN PRN Reason: Shortness of Breath/Wheezing Enoxaparin Sodium (Enoxaparin Sodium 40 Mg/0.4 Ml Syringe) 40 mg SUBCUT Q24H [facility] Last Admin: 09/17/24 14:04 Dose: 40 mg Documented By: DIONI Fluticasone/Vilanterol (Fluticasone/Vilanterol 100/25 Blst.W.Dev) 1 puff INHALE DAILY [facility] Last Admin: 09/17/24 08:03 Dose: 1 puff Documented By: TOSHA Guaifenesin/Codeine Phosphate (Guaifen/Codeine Sf 200/20/10ml 10 Ml Liquid) 10 ml PO Q4H PRN PRN Reason: Cough Last Admin: 09/17/24 17:15 Dose: 10 ml Documented By: DIONI Levofloxacin (Levofloxacin 750 Mg Tablet) 750 mg PO Q24H [facility] Stop: 09/19/24 09:01 Last Admin: 09/17/24 08:28 Dose: 750 mg Documented By: DIONI Magnesium Hydroxide (Milk Of Magnesia 30 Ml Oral.Susp) 30 ml PO DAILY PRN PRN Reason: Constipation Melatonin (Melatonin 3 Mg Tablet) 6 mg PO BEDTIME PRN PRN Reason: Insomnia Last Admin: 09/15/24 20:50 Dose: 6 mg Documented By: MOR Methylprednisolone Sodium Succinate (Methylprednisolone Sod Succ 40 Mg/Ml Vial) 40 mg IVPUSH BID [facility] Last Admin: 09/17/24 08:28 Dose: 40 mg Documented By: DIONI Multivitamins/Vitamin C (Multivitamin Tablet) 1 tab PO DAILY [facility] Last Admin: 09/17/24 08:28 Dose: 1 tab Documented By: DIONI Nicotine (Nicotine 7 Mg Patch.Td24) 7 mg TRANSDERMA DAILY [facility] Last Admin: 09/17/24 08:27 Dose: 7 mg Documented By: DIONI Ondansetron HCl (Ondansetron Hcl 4 Mg/2 Ml Vial) 4 mg IVPUSH Q8H PRN PRN Reason: Nausea and Vomiting Polyethylene Glycol (Polyethylene Glycol 3350 17 Gm Powd.Pack) 17 gm PO DAILY PRN PRN Reason: Constipation Sodium Chloride (0.9 % Sodium Chloride Flush 3 Ml Syringe) 3 ml IVFLUSH QSHIFT [facility] Last Admin: 09/17/24 17:16 Dose: 3 ml Documented By: DIONI Labs 09/17/24 06:08 09/17/24 06:08 Labs: Laboratory Results - last 24 hr 09/17/24 06:08 MCV 93.1 MCH 32.3 MCHC 34.7 RDW 12.5 Plt Count 236 MPV 9.4 Absolute Nucleated RBC 0.000 Nucleated RBC % (auto) 0.0 Anion Gap 14 Estim Creat Clear Calc 72.8 Estimated GFR > 60 Random Glucose 151 H Calcium 9.0 Microbiology Microbiology Results: Microbiology 09/15/24 10:59 Blood Culture - Preliminary Blood - Venous No growth after 48 hours. 09/15/24 10:59 Blood Culture - Preliminary Blood - Venous No growth after 48 hours. Assessment and Plan (1) COPD exacerbation: Status: Acute Plan 68/F with acute hypoxic resp failure d/t copd exacerbation that has failed outpatient treatment, likely from CAP Acute hypoxic resp failure d/t copd exacerbation and PNA Treat underlying PNA with Levaquin Xopenex scheduled and PRN for copd IV solumedrol O2 with goal of O2 saturation no more than 94 % Smoking cessation discussed--NRT Leukocytois not d/t speis, rather due to recent steroid use Tachycardia likey related to albuterol use dvt prophylax: s/c lovenox. ongoing need :Acute hypoxic resp failure d/t copd exacerbation and PNA-need oxygen ,nebs ,steriods , antibiotic, respiratory status is not optimal yet. . Quality Stroke Does the patient have a stroke diagnosis?: No VTE Prior VTE?: No VTE Risk Level:: Medical - moderate - high VTE Device Contraindication: Treatment Not Indicated VTE Drug Contraindication: N/A - Med Ordered
[2024-09-17] MEDS: Acetaminophen 325 MG TABLET 650 MG PO (21:55)
[2024-09-18] VITALS (9 sets, daily range): BP systolic 148–165; BP diastolic 58–73; PULSE 78–114; RESP 18–20; TEMP 36.2–37.1; O2SAT 92–147
[2024-09-18] MEDS: guaiFEN/Codeine SF 200/20/10ML 10 ML LIQUID PO ×4 (04:15→20:22)
[2024-09-18] MEDS: levalbuterol HCL 2.5 MG, Ipratropium Bromide 0.5 MG INHALE ×4 (08:03→19:14)
[2024-09-18] MEDS: Fluticasone/Vilanterol 100/25 BLST.W.DEV 1 PUFF INHALE (08:04)
[2024-09-18] MEDS: methylPREDNISolone Sod Succ 40 MG/ML VIAL IVPUSH ×2 (08:59→20:22)
[2024-09-18] MEDS: levoFLOXacin 750 MG TABLET PO (08:59)
[2024-09-18] MEDS: 0.9 % Sodium Chloride Flush 3 ML SYRINGE IVFLUSH ×2 (09:00→20:22)
[2024-09-18] MEDS: Nicotine 7 MG PATCH.TD24 TRANSDERMA (09:00)
[2024-09-18] MEDS: Multivitamin TABLET 1 TAB PO (09:00)
[2024-09-18] MEDS: Enoxaparin Sodium 40 MG/0.4 ML SYRINGE SUBCUT (14:01)
--- NOTE | 2024-09-18 15:03 | P.PNIM_ITS ---
Subjective Subjective Date of Service: 09/18/24 Interval History: copd ,pneumonia Review of Systems sob /cough -similar to yesterday no fevers Physical Exam 2 Vital Signs: Vital Signs: Last Vital Signs Temp 97.1 F 09/18/24 07:59 Pulse 81 09/18/24 11:50 Resp 18 09/18/24 11:50 BP 158/68 H 09/18/24 07:59 Pulse Ox 95 09/18/24 07:59 O2 Del Method Nasal Cannula 09/18/24 07:59 O2 Flow Rate 2.0 09/18/24 07:59 BMI result Body Mass Index 21.2 General: AO X 3, no acute distress Resp: air entry diminshed ,has b/l exp wheezing CVS: S1,S2,RRR GI: +BS, NT, no distention Skin: No rash Neuro: motor grossly intact Psych: appropriate affect Objective Data Active Medications Acetaminophen (Acetaminophen 325 Mg Tablet) 650 mg PO Q6H PRN PRN Reason: Pain, Mild 1-3,fever,headache Last Admin: 09/17/24 21:55 Dose: 650 mg Documented By: ANKIT Benzonatate (Benzonatate 100 Mg Capsule) 100 mg PO TID PRN PRN Reason: Cough Last Admin: 09/16/24 05:37 Dose: 100 mg Documented By: MOR Calcium Carbonate (Calcium Carbonate 750 Mg Tab.Chew) 750 mg PO Q4H PRN PRN Reason: Heartburn Levalbuterol HCl 2.5 mg/ (Ipratropium [place] 0.5 mg) 0 mg INHALE RQ4H WHILE AWAKE [facility] Last Admin: 09/18/24 11:47 Dose: 5 dose Documented By: ERAN Levalbuterol HCl 1.25 mg/ (Ipratropium [place] 0.5 mg) 0 mg INHALE Q2H PRN PRN Reason: Shortness of Breath/Wheezing Enoxaparin Sodium (Enoxaparin Sodium 40 Mg/0.4 Ml Syringe) 40 mg SUBCUT Q24H [facility] Last Admin: 09/18/24 14:01 Dose: 40 mg Documented By: HUBER Fluticasone/Vilanterol (Fluticasone/Vilanterol 100/25 Blst.W.Dev) 1 puff INHALE DAILY [facility] Last Admin: 09/18/24 08:04 Dose: 1 puff Documented By: ABEL Guaifenesin/Codeine Phosphate (Guaifen/Codeine Sf 200/20/10ml 10 Ml Liquid) 10 ml PO Q4H PRN PRN Reason: Cough Last Admin: 09/18/24 14:01 Dose: 10 ml Documented By: HUBER Levofloxacin (Levofloxacin 750 Mg Tablet) 750 mg PO Q24H [facility] Stop: 09/19/24 09:01 Last Admin: 09/18/24 08:59 Dose: 750 mg Documented By: HUBER Magnesium Hydroxide (Milk Of Magnesia 30 Ml Oral.Susp) 30 ml PO DAILY PRN PRN Reason: Constipation Melatonin (Melatonin 3 Mg Tablet) 6 mg PO BEDTIME PRN PRN Reason: Insomnia Last Admin: 09/15/24 20:50 Dose: 6 mg Documented By: MOR Methylprednisolone Sodium Succinate (Methylprednisolone Sod Succ 40 Mg/Ml Vial) 40 mg IVPUSH BID [facility] Last Admin: 09/18/24 08:59 Dose: 40 mg Documented By: HUBER Multivitamins/Vitamin C (Multivitamin Tablet) 1 tab PO DAILY [facility] Last Admin: 09/18/24 09:00 Dose: 1 tab Documented By: HUBER Nicotine (Nicotine 7 Mg Patch.Td24) 7 mg TRANSDERMA DAILY [facility] Last Admin: 09/18/24 09:00 Dose: 7 mg Documented By: HUBER Ondansetron HCl (Ondansetron Hcl 4 Mg/2 Ml Vial) 4 mg IVPUSH Q8H PRN PRN Reason: Nausea and Vomiting Polyethylene Glycol (Polyethylene Glycol 3350 17 Gm Powd.Pack) 17 gm PO DAILY PRN PRN Reason: Constipation Sodium Chloride (0.9 % Sodium Chloride Flush 3 Ml Syringe) 3 ml IVFLUSH QSHIFT [facility] Last Admin: 09/18/24 09:00 Dose: 3 ml Documented By: HUBER Labs 09/17/24 06:08 09/17/24 06:08 Microbiology Microbiology Results: Microbiology 09/15/24 10:59 Blood Culture - Preliminary Blood - Venous No growth after 48 hours. 09/15/24 10:59 Blood Culture - Preliminary Blood - Venous No growth after 48 hours. Assessment and Plan (1) COPD exacerbation: Status: Acute Plan 68/F with acute hypoxic resp failure d/t copd exacerbation that has failed outpatient treatment, likely from CAP Acute hypoxic resp failure d/t copd exacerbation and PNA Treat underlying PNA with Levaquin Xopenex scheduled and PRN for copd IV solumedrol O2 with goal of O2 saturation no more than 94 % Smoking cessation discussed--NRT Leukocytois not d/t speis, rather due to recent steroid use Tachycardia likey related to albuterol use, improved. dvt prophylax: s/c lovenox. ongoing need :Acute hypoxic resp failure d/t copd exacerbation and PNA-need oxygen ,nebs ,steriods , antibiotic, respiratory status is not optimal yet. . Quality Stroke Does the patient have a stroke diagnosis?: No VTE Prior VTE?: No VTE Risk Level:: Medical - moderate - high VTE Device Contraindication: Treatment Not Indicated VTE Drug Contraindication: N/A - Med Ordered
[2024-09-18] MEDS: Acetaminophen 325 MG TABLET 650 MG PO (20:22)
[2024-09-19] MEDS: guaiFEN/Codeine SF 200/20/10ML 10 ML LIQUID PO ×2 (03:04→08:44)
[2024-09-19 03:40] VITALS: BP 172/88; PULSE 83; RESP 20; TEMP 36.3; O2SAT 95
[2024-09-19 06:15] VITALS: BP 150/70; PULSE 84
[2024-09-19 07:41] VITALS: BP 162/72; PULSE 74; RESP 18; TEMP 36.3; O2SAT 96
[2024-09-19] MEDS: levalbuterol HCL 2.5 MG, Ipratropium Bromide 0.5 MG INHALE (08:40)
[2024-09-19 08:42] VITALS: PULSE 74; RESP 18; O2SAT 96
[2024-09-19] MEDS: Fluticasone/Vilanterol 100/25 BLST.W.DEV 1 PUFF INHALE (08:42)
[2024-09-19] MEDS: methylPREDNISolone Sod Succ 40 MG/ML VIAL IVPUSH (08:44)
[2024-09-19] MEDS: levoFLOXacin 750 MG TABLET PO (08:45)
[2024-09-19] MEDS: Multivitamin TABLET 1 TAB PO (08:45)
[2024-09-19] MEDS: Nicotine 7 MG PATCH.TD24 TRANSDERMA (08:45)
[2024-09-19] MEDS: 0.9 % Sodium Chloride Flush 3 ML SYRINGE IVFLUSH (08:46)
--- NOTE | 2024-09-19 12:49 | MHC.CM.PN ---
Patient medically cleared for dc home self care with new O2. Does not feel she needs VNA. Daughter will provide transport.
--- NOTE | 2024-09-19 13:02 | P.DS_ITS ---
DS: Providers Provider Date of Service: 09/19/24 Date of admission: 09/15/24 12:14 Date of discharge: 09/19/24 Primary care physician: Loretta Stock DO Attending physician on discharge: Hortensia Fontenot Discharging clinician: Hortensia Fontenot DS: Diagnosis Discharge Diagnosis (1) COPD exacerbation: Status: Acute DS: Summary Hospital Course Hospital Course: HPI:68 female with history of Lupus, copd, active smoker although she says she quit a month ago. She presents with shortness of breath. Las week she was sick with difficulty breathing and was evaluated and given 5 days of Prednionse 50 mg daily for 5 days at an urgent care clinic. She has continued to be short of breath, and not able to catch my breath . She has a productive ough, reports no fever. Her oxygen saturation was 87 on room. She is tachycy, CXR suggest possible infiltrate (see report) , WBC is 16 likely from steroid use. ED treatment: Solu-medrol, magnesium, Levaquin and bronchodilators with albuterol and oxygen. Oxygen saturation is now 93% on 4 liters, she feels a little relief. Hospital course: 68-year-old female came to the hospital because of shortness of breath found to have COPD exacerbation and chest x-ray shows pneumonia possible: Started on IV antibiotics, IV steroids and nebs : With the above management patient seems to be improved significantly, shortness of breath improved to baseline, tachycardia resolved, cough is also improving, no fevers, patient is seems to be feeling much better and eager to go home. Blood culture negative. Patient's antibiotics switched to p.o. upon discharge p.o./and prednisone . Hypokalemia repleted and resolved. plan: If any new changes shortness of breath or cough or fever or any new complaints go to nearest emergency room. Complete prednisone 40 mg p.o. daily for 4 days. Levaquin 750 mg 3 more days. Please consider repeat chest imaging in 3-4 weeks to see resolution of pneumonia. Patient will be going home with home oxygen. patient agrees going home without vna. Above management discussed with the patient in detail length she understand and in agreement with the above plan, time spent 40 minute, all question answered, staff was present during conversation. Time Attestation Total time managing care of this patient today: 40 mintues. Discharge Coordination Time (in mins): 40 Quality: Safe Use of Opioids Does Pt have an Active Cancer Diagnosis on the Problem List?: No Quality: Stroke Does the patient have a stroke diagnosis?: No Physical Exam Vital Signs: Vital Signs: Last Vital Signs Temp 97.4 F 09/19/24 07:41 Pulse 74 09/19/24 08:42 Resp 18 09/19/24 08:42 BP 162/72 H 09/19/24 07:41 Pulse Ox 96 09/19/24 07:41 O2 Del Method Nasal Cannula 09/19/24 07:41 O2 Flow Rate 2.0 09/19/24 07:41 BMI result Body Mass Index 21.2 General: AO X 3, no acute distress Resp: air entry fair , no rales or wheezing CVS: S1,S2,RRR GI: +BS, NT, no distention Skin: No rash Neuro: motor grossly intact Psych: appropriate affect DS: Data Data Completed and Pending Labs on day of discharge: Preliminary micro results at discharge 09/15/24 10:59 Blood Culture - Preliminary Blood - Venous No growth after 48 hours. 09/15/24 10:59 Blood Culture - Preliminary Blood - Venous No growth after 48 hours. Imaging Chest x-ray: My impression: cxr: Increased bilateral lung markings more conspicuous in the mid/lower lungs. New small right lung opacities cannot be excluded. Pulmonary edema +/- right lower lung atelectasis/infiltrate can not be excluded. Discharge Plan Discharge Anticipated Discharge Date/Time: 09/19/24 12:55 Patient Disposition: Home, Self-Care Discharge Diagnosis: copd excerebation ,pneumonia Referrals: Loretta Stock DO [Primary Care Provider] - 1 Week Discharge Medications: New nicotine 7 mg/24 hr Patch 24 Hour 7 mg transdermal DAILY Qty: 7 0RF Proair Digihaler 90 mcg/actuation aero powdr breath act w/sensor 2 inh inhalation Q4-6H PRN (Reason: shortness of breath or wheezing) Qty: 2 0RF levofloxacin 750 mg tablet 750 mg PO DAILY Qty: 3 0RF prednisone 20 mg tablet 40 mg PO DAILY Qty: 8 0RF Continued multivitamin Tablet 1 tab PO DAILY budesonide-formoterol [Symbicort] 80-4.5 mcg/actuation HFA aerosol inhaler 1 inh inhalation DAILY Discharge Orders: Discharge Order (Routine); Ordered 09/19/24 Ordered By: Hortensia Fontenot Diet: Advance to usual diet Activity on Discharge: As tolerated Stand Alone Forms: Patient Portal Discharge page Print Language: Romansh Care Plan Goals: Please see below. Health Concerns: If any new changes shortness of breath or cough or fever or any new complaints go to nearest emergency room. Complete prednisone 40 mg p.o. daily for 4 days. Levaquin 750 mg 3 more days. Please consider repeat chest imaging in 3-4 weeks to see resolution of pneumonia. Patient will be going home with home oxygen. patient agrees going home without vna. Plan of Treatment: As above. Assessment: As above.
[2024-09-19 14:24] VITALS: BP 160/84; PULSE 98; RESP 18; TEMP 36.4; O2SAT 92
== END 2024-09-19 13:59 | disposition home or self-care (01) | DRG 190 ==
LOC: HO.ED 12:08 → HO.EDOVER 12:20 → HO.S3 14:48
PROVIDERS: Admitting Provider Internal Medicine; Emergency Provider Emergency Medicine; PCP Family Medicine; Visit Provider Internal Medicine
DX: J44.0 Chronic obstructive pulmonary disease with (acute) lower respiratory infection (principal); J18.9 Pneumonia, unspecified organism; J96.01 Acute respiratory failure with hypoxia; J44.1 Chronic obstructive pulmonary disease with (acute) exacerbation; E87.6 Hypokalemia; Z20.822 Contact with and (suspected) exposure to COVID-19; Z79.899 Other long term (current) drug therapy
CPT/HCPCS: 0241U; 36415; 71045; 80048; 80053; 80076; 81003; 82803; 83605; 83690; 83880; 84484; 85025; 85027; 87040; 93005; 94640; 99221; 99285; J1650; J1956; J2919; J3475; J3480

== ENCOUNTER → 2024-09-15 10:39 | Outpatient (BNV) | payer MEDICARE, SELFPAY | PROVIDERS: Admitting Provider Internal Medicine; Emergency Provider Emergency Medicine; PCP Family Medicine; Visit Provider Internal Medicine Cardiovascular Disease | DX: R00.0 Tachycardia, unspecified (principal) | CPT/HCPCS: 93010 ==

== ENCOUNTER → 2024-09-15 10:39 | Outpatient (BNV) | payer MEDICARE, SELFPAY | PROVIDERS: Admitting Provider Internal Medicine; Emergency Provider Emergency Medicine; PCP Family Medicine; Visit Provider Radiology Diagnostic Radiology | DX: R06.02 Shortness of breath (principal) | CPT/HCPCS: 71045 ==

== ENCOUNTER → 2024-09-15 12:14 | Outpatient (BNV) | payer MEDICARE, SELFPAY | PROVIDERS: Admitting Provider Internal Medicine; Emergency Provider Emergency Medicine; PCP Family Medicine; Visit Provider Internal Medicine | DX: J18.9 Pneumonia, unspecified organism (principal); J44.1 Chronic obstructive pulmonary disease with (acute) exacerbation | CPT/HCPCS: 99223; 99231; 99232 ==